=== PATIENT | female | born 1935 | race Caucasian/White ===

== ENCOUNTER → 2017-03-06 | Outpatient (CLI) | payer MEDICARE, BC ==
--- NOTE | 2017-03-07 09:09 | MM ---
Reason for exam: screening (asymptomatic). Last mammogram was performed 1 year and 1 month ago. History: Patient is postmenopausal. Benign stereotactic core biopsy of the right breast, April 10, 2003. Excisional biopsy of the left breast, 1979. Cyst aspiration of the right breast. Excisional biopsy of the right breast. Took estrogen for 2 years. Physical Findings: A clinical breast exam by your physician is recommended on an annual basis and results should be correlated with mammographic findings. MG 3D Screening Mammo W/Cad Bilateral CC and MLO view(s) were taken. Prior study comparison: February 04, 2016, bilateral MG 3d screening mammo w/cad. November 23, 2014, bilateral MG screening mammo w CAD. The breast tissue is heterogeneously dense. This may lower the sensitivity of mammography. Finding: There are typically benign round, linear calcifications. There is a chronic nodularity bilaterally. No significant changes in finding since February 04, 2016 and November 23, 2014. ASSESSMENT: Benign, BI-RAD 2 RECOMMENDATION: Routine screening mammogram of both breasts in 1 year.
== END ==
LOC: RADMAMWWP 09:13
PROVIDERS: ATTEND Family Medicine
DX: Z12.31 Encounter for screening mammogram for malignant neoplasm of breast (principal)
CPT/HCPCS: 77063; 77067

== ENCOUNTER 2017-06-12 13:41 | Inpatient (IN) | payer MEDICARE, BC ==
[2017-06-12] MEDS ORDERED: RX INFO: IV CONTRAST WAS GIVEN 1 EACH MISC MISCELLANE PRN (14:03)
--- NOTE | 2017-06-12 14:04 | ED ---
General Adult HPI - General Chief complaint: Neuro Symptoms/Deficit Stated complaint: confusion, trouble speaking Time Seen by Provider: 06/12/17 13:52 Source: patient, RN notes reviewed, old records reviewed Mode of arrival: wheelchair Limitations: no limitations - History of Present Illness Initial comments: 81-year-old female presenting for evaluation of slurred speech and confusion. Patient states approximately 2 hours prior to arrival she had an episode where she could not find words, she was confused. This happened while having a conversation with her daughter on the phone. Symptoms completely resolved prior to arrival. Denies any focal weakness or numbness, denies speech difficulty at the time my evaluation. She states she did have a headache with this episode and this is also resolved. Denies chest pain or shortness of breath. Denies vision changes. Denies numbness or tingling. Denies nausea vomiting or diarrhea. Patient has no complaints the time my evaluation. - Related Data Home Medications Medication Instructions Recorded Confirmed Atorvastatin [Lipitor] 40 mg PO HS 07/31/14 06/12/17 Levothyroxine Sodium [Synthroid] 50 mcg PO DAILY 07/31/14 06/12/17 Warfarin [Coumadin] 2.5 mg PO HS 07/31/14 06/12/17 Nitroglycerin Sl Tabs [Nitrostat] 0.4 mg SUBLINGUAL Q5M PRN 08/09/15 06/12/17 Atenolol [Tenormin] 50 mg PO HS 01/10/16 06/12/17 Pantoprazole Sodium [Protonix] 40 mg PO DAILY 06/12/17 06/12/17 Allergies Allergy/AdvReac Type Severity Reaction Status Date / Time No Known Allergies Allergy Verified 06/12/17 14:13 Review of Systems ROS Statement: Those systems with pertinent positive or pertinent negative responses have been documented in the HPI. ROS Other: All systems not noted in ROS Statement are negative. 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 History of Any Multi-Drug Resistant Organisms: None Reported Past Surgical History: Adenoidectomy, Breast Surgery, Cholecystectomy, Coronary Bypass/CABG, Heart Catheterization With Stent, Hernia Repair, Tonsillectomy Additional Past Surgical History / Comment(s): Cardiac caths with stent to proximal LAD in 2003 and stent to mid LAD 2010, 03/09/12 CABG-3 vessel, umbilical hernia repair, bilateral breast bx-R breast had chrystall removed, L caratid endartectomy, UVPPP, colonoscopy, hemorrhoidectomy, bilateral cataract removal with lens implants. Past Anesthesia/Blood Transfusion Reactions: No Reported Reaction Date of Last Stent Placement:: 2010 Past Psychological History: Anxiety, Depression Smoking Status: Never smoker Past Alcohol Use History: None Reported Past Drug Use History: None Reported - Past Family History Father Family Medical History: Congestive Heart Failure (CHF), Coronary Artery Disease (CAD) Additional Family Medical History / Comment(s): Father at the age of 57yrs of CHF Mother Family Medical History: Cancer Additional Family Medical History / Comment(s): Mother had colon cancer. She lived to be 89 1/2yrs old. Brother(s) History Unknown: Yes Sister(s) Family Medical History: Cancer Daughter(s) History Unknown: Yes General Exam Limitations: no limitations General appearance: alert, in no apparent distress Head exam: Present: atraumatic, normocephalic Eye exam: Present: normal appearance, PERRL, EOMI ENT exam: Present: normal exam Neck exam: Present: normal inspection. Absent: tenderness, meningismus Respiratory exam: Present: normal lung sounds bilaterally. Absent: respiratory distress, wheezes Cardiovascular Exam: Present: regular rate, normal rhythm GI/Abdominal exam: Present: soft. Absent: distended, tenderness Extremities exam: Present: normal inspection, normal capillary refill. Absent: pedal edema Neurological exam: Present: alert, oriented X3, CN II-XII intact. Absent: motor sensory deficit (NIH: 0) Psychiatric exam: Present: normal affect, normal mood Skin exam: Present: warm, dry, intact. Absent: cyanosis, diaphoretic Course Vital Signs 06/12/17 06/12/17 06/12/17 13:54 14:31 15:33 Temperature 98.1 F Pulse Rate 79 89 72 Respiratory 16 18 18 Rate Blood Pressure 225/99 189/86 226/99 O2 Sat by Pulse 95 99 99 Oximetry 06/12/17 15:55 Temperature Pulse Rate 62 Respiratory 18 Rate Blood Pressure 173/80 O2 Sat by Pulse 97 Oximetry EKG Findings - EKG Comments: EKG Findings:: EKG: Sinus rhythm with first-degree AV block, LVH, rate of 77, SD interval 216, QRS duration 82, QTC 448, there is T-wave inversion in lead V2 , poor baseline secondary artifact in V5 and V6. No ST segment elevation Medical Decision Making - Medical Decision Making 81-year-old female presenting with aphasia. Symptoms resolved prior to arrival. Blood pressure significantly elevated at the time of presentation. Head CT shows no intracranial hemorrhage, no mass effect. CT angiography is obtained is negative for significant stenosis or emboli. Laboratory studies include CBC and CMP are unremarkable. She's blood pressure history in the emergency department with 10 of hydralazine, goal is a blood pressure 170-190 systolic. Case discussed with Dr. Bailey who will accept the admission for TIA evaluation. Neurology placed on consult. - Lab Data Result diagrams: 06/12/17 14:00 06/12/17 14:00 Lab Results 06/12/17 06/12/17 06/12/17 Range/Units 14:00 14:00 14:00 WBC 8.1 (3.8-10.6) k/uL RBC 4.30 (3.80-5.40) m/uL Hgb 12.5 (11.4-16.0) gm/dL Hct 39.3 (34.0-46.0) % MCV 91.5 (80.0-100.0) fL MCH 29.2 (25.0-35.0) pg MCHC 31.9 (31.0-37.0) g/dL RDW 15.3 (11.5-15.5) % Plt Count 279 (150-450) k/uL Neutrophils % 43 % Lymphocytes % 45 % Monocytes % 6 % Eosinophils % 4 % Basophils % 0 % Neutrophils # 3.5 (1.3-7.7) k/uL Lymphocytes # 3.7 (1.0-4.8) k/uL Monocytes # 0.5 (0-1.0) k/uL Eosinophils # 0.3 (0-0.7) k/uL Basophils # 0.0 (0-0.2) k/uL PT (9.0-12.0) sec INR (<1.2) APTT (22.0-30.0) sec Sodium 141 (137-145) mmol/L Potassium 4.1 (3.5-5.1) mmol/L Chloride 104 (98-107) mmol/L Carbon Dioxide 22 (22-30) mmol/L Anion Gap 15 mmol/L BUN 17 (7-17) mg/dL Creatinine 1.07 H (0.52-1.04) mg/dL Est GFR (CKD-EPI)AfAm 56 (>60 ml/min/1.73 sqM) Est GFR (CKD-EPI)NonAf 48 (>60 ml/min/1.73 sqM) Glucose 102 H (74-99) mg/dL Calcium 9.0 (8.4-10.2) mg/dL Total Bilirubin 1.7 H (0.2-1.3) mg/dL AST 50 H (14-36) U/L ALT 43 (9-52) U/L Alkaline Phosphatase 74 (38-126) U/L Total Creatine Kinase 72 (30-135) U/L CK-MB (CK-2) 0.5 (0.0-2.4) ng/mL CK-MB (CK-2) Rel Index 0.7 Troponin I <0.012 (0.000-0.034) ng/mL Total Protein 7.7 (6.3-8.2) g/dL Albumin 4.1 (3.5-5.0) g/dL 06/12/17 Range/Units 14:00 WBC (3.8-10.6) k/uL RBC (3.80-5.40) m/uL Hgb (11.4-16.0) gm/dL Hct (34.0-46.0) % MCV (80.0-100.0) fL MCH (25.0-35.0) pg MCHC (31.0-37.0) g/dL RDW (11.5-15.5) % Plt Count (150-450) k/uL Neutrophils % % Lymphocytes % % Monocytes % % Eosinophils % % Basophils % % Neutrophils # (1.3-7.7) k/uL Lymphocytes # (1.0-4.8) k/uL Monocytes # (0-1.0) k/uL Eosinophils # (0-0.7) k/uL Basophils # (0-0.2) k/uL PT 16.8 H (9.0-12.0) sec INR 1.8 H (<1.2) APTT 26.7 (22.0-30.0) sec Sodium (137-145) mmol/L Potassium (3.5-5.1) mmol/L Chloride (98-107) mmol/L Carbon Dioxide (22-30) mmol/L Anion Gap mmol/L BUN (7-17) mg/dL Creatinine (0.52-1.04) mg/dL Est GFR (CKD-EPI)AfAm (>60 ml/min/1.73 sqM) Est GFR (CKD-EPI)NonAf (>60 ml/min/1.73 sqM) Glucose (74-99) mg/dL Calcium (8.4-10.2) mg/dL Total Bilirubin (0.2-1.3) mg/dL AST (14-36) U/L ALT (9-52) U/L Alkaline Phosphatase (38-126) U/L Total Creatine Kinase (30-135) U/L CK-MB (CK-2) (0.0-2.4) ng/mL CK-MB (CK-2) Rel Index Troponin I (0.000-0.034) ng/mL Total Protein (6.3-8.2) g/dL Albumin (3.5-5.0) g/dL Critical Care Time Critical Care Time: Yes Total Critical Care Time: 35 Disposition Clinical Impression: Transient cerebral ischemia Disposition: ADMITTED IP TO THIS [facility] Condition: Stable Is patient prescribed a controlled substance at discharge?: No Referrals: Jad Paulino DO [Primary Care Provider] - 1-2 days Decision to Admit Reason: Admit from EC Decision Date: 06/12/17 Decision Time: 17:06
[2017-06-12 14:24] LABS: Basophils % (A) 0 %; Eosinophils # (A) 0.3 k/uL (0-0.7); Eosinophils % (A) 4 %; HCT 39.3 % (34.0-46.0); HGB 12.5 gm/dL (11.4-16.0); Lymphocytes # (A) 3.7 k/uL (1.0-4.8); Lymphocytes % (A) 45 %; MCH 29.2 pg (25.0-35.0); MCHC 31.9 g/dL (31.0-37.0); MCV 91.5 fL (80.0-100.0); Mean Platelet Volume 7.5; Monocytes # (A) 0.5 k/uL (0-1.0); Monocytes % (A) 6 %; Neutrophils # (A) 3.5 k/uL (1.3-7.7); Neutrophils % (A) 43 %; Platelet Count 279 k/uL (150-450); RDW 15.3 % (11.5-15.5); WBC 8.1 k/uL (3.8-10.6)
[2017-06-12 14:34] LABS: INR 1.8 (<1.2); Partial Thromboplastin Time 26.7 sec (22.0-30.0); Prothrombin Time 16.8 sec (9.0-12.0)
[2017-06-12 14:36] LABS: Albumin 4.1 g/dL (3.5-5.0); Potassium 4.1 mmol/L (3.5-5.1); Total Bilirubin 1.7 mg/dL (0.2-1.3); Total Protein 7.7 g/dL (6.3-8.2)
--- NOTE | 2017-06-12 14:38 | XR ---
EXAMINATION TYPE: XR chest 2V DATE OF EXAM: 06/12/2017 COMPARISON: Chest x-ray January 10, 2016. HISTORY: Chest pain per order. TECHNIQUE: Frontal and lateral views of the chest are obtained. FINDINGS: Post CABG changes with mediastinal clips and sternal wires is redemonstrated. There is ch ronic emphysematous change with new patchy left basilar opacity felt to reflect atelectasis and/or in filtrate seen best on frontal view. Right lung is clear. No large pleural effusion or pneumothorax is identified bilaterally. The cardiac silhouette size is stable and upper limits of normal with athero sclerotic thoracic aorta. The osseous structures are demineralized. IMPRESSION: Chronic changes with new patchy left basilar atelectasis and/or infiltrate.
[2017-06-12 14:44] LABS: Creatine Kinase 72 U/L (30-135)
[2017-06-12 14:58] LABS: Creatine Kinase MB 0.5 ng/mL (0.0-2.4); Troponin I <0.012 ng/mL (0.000-0.034)
[2017-06-12] MEDS ORDERED: hydrALAZINE HCL 20 MG/ML 1 ML VIAL IVP STA (15:33)
--- NOTE | 2017-06-12 15:44 | CT ---
EXAMINATION TYPE: CT brain wo con DATE OF EXAM: 06/12/2017 COMPARISON: NONE HISTORY: Confusion and dizziness. CT DLP: 1104 mGycm Automated exposure control for dose reduction was used. TECHNIQUE: CT scan of the head is performed without contrast. FINDINGS: There is no acute intracranial hemorrhage or midline shift identified. There is diffuse v entricular and sulcal prominence consistent with diffuse age-related cerebral atrophy. There is low- attenuation in the periventricular white matter consistent with chronic small vessel ischemic change. There is mild mucosal thickening within the ethmoid sinuses and scant mucosal thickening within the sphenoid and frontal sinuses. Visualized maxillary sinuses are well aerated. Incidentally noted left- sided geraldine bullosa is seen. Mastoid air cells are also well aerated. Atherosclerosis is seen of the intracranial vasculature. Left globe banding and right scleral calcifications are incidentally noted . Dystrophic basal ganglia calcifications are also incidentally seen. IMPRESSION: 1. No acute intracranial process. 2. Diffuse age-related cerebral atrophy and chronic small vessel ischemic change noted, most commonly on the basis of chronic microangiopathy. 3. Mild sinusitis.
--- NOTE | 2017-06-12 15:51 | CT ---
EXAMINATION TYPE: CT angio head neck DATE OF EXAM: 06/12/2017 HISTORY: Confusion and dizziness COMPARISON: CT brain same date CT DLP: 271.6 mGycm. Automated Exposure Control for Dose Reduction was Utilized. TECHNIQUE: CTA scan of the neck is performed with IV Contrast, patient injected with 65 mL of Isovue 370, axial images are obtained, coronal and sagittal reformatted images are reviewed. Three-D recons tructed images are created on an independent workstation and reviewed. FINDINGS: Carotid/Vascular Structures: Thoracic aorta shows 3 super aortic branch vessels, atheromatous changes are present, the innominate, left and right common carotid, left and right subclavian arteries are p atent. Left and right vertebral arteries are patent, left vertebral artery is dominant. No filling de fect evident to suggest embolus or dissection. No significant stenosis of the proximal internal carot id arteries bilaterally, internal and external carotid arteries are patent. Anterior and posterior ci rculation is patent, no evident embolus within the [place], no evident aneurysm. Other: No evident adenopathy. Lung apices are normal. IMPRESSION: Atheromatous changes, no evident embolism, dissection or aneurysm.
[2017-06-12] MEDS ORDERED: ASPIRIN 325 MG TAB PO STA (16:58)
[2017-06-12] MEDS ORDERED: hydrALAZINE HCL 20 MG/ML 1 ML VIAL IVP PRN (17:01)
[2017-06-12 20:20] LABS: Creatine Kinase 71 U/L (30-135)
[2017-06-12 20:29] LABS: Creatine Kinase MB 0.5 ng/mL (0.0-2.4)
[2017-06-12 20:34] LABS: Troponin I <0.012 ng/mL (0.000-0.034)
[2017-06-12] MEDS: SODIUM CHLORIDE 0.9% 1,000 ML IV SCH (21:45)
[2017-06-13] MEDS ORDERED: ALPRAZolam 0.25 MG TAB PO PRN (01:00)
[2017-06-13] MEDS ORDERED: ALPRAZolam 0.25 MG TAB ONE ×2 (01:27→01:50)
[2017-06-13] MEDS ORDERED: hydrALAZINE HCL 20 MG/ML 1 ML VIAL ONE (01:50)
[2017-06-13 07:07] LABS: Cholesterol 176 mg/dL (<200); HDL Cholesterol 43 mg/dL (40-60); LDL Cholesterol,Calculated 101 mg/dL (0-99); Triglycerides 158 mg/dL (<150)
[2017-06-13 07:22] LABS: Basophils % (A) 0 %; Eosinophils # (A) 0.1 k/uL (0-0.7); Eosinophils % (A) 1 %; HCT 41.7 % (34.0-46.0); HGB 13.2 gm/dL (11.4-16.0); Hypochromasia Slight; Lymphocytes # (A) 1.8 k/uL (1.0-4.8); Lymphocytes % (A) 22 %; MCHC 31.6 g/dL (31.0-37.0); MCV 91.9 fL (80.0-100.0); Mean Platelet Volume 7.4; Monocytes # (A) 0.3 k/uL (0-1.0); Monocytes % (A) 3 %; Neutrophils # (A) 5.8 k/uL (1.3-7.7); Neutrophils % (A) 73 %; Platelet Count 294 k/uL (150-450); RBC 4.54 m/uL (3.80-5.40); RDW 15.3 % (11.5-15.5); WBC 7.9 k/uL (3.8-10.6)
[2017-06-13] MEDS: ONDANSETRON 4 MG/2 ML VIAL IVP PRN ×2 (07:32→13:59)
[2017-06-13 08:00] LABS: Magnesium 1.6 mg/dL (1.6-2.3)
[2017-06-13 08:17] LABS: T4, Free (Free Thyroxine) 1.07 ng/dL (0.78-2.19)
--- NOTE | 2017-06-13 08:34 | P.CRDCN ---
History of Present Illness Consult date: 06/13/17 Requesting physician: Mia Bailey Reason for Consult (text): tia Chief complaint: Expressive aphasia, headache, blurring of vision History of present illness: This is a pleasant 81-year-old female who follows regularly with Dr. John in the office. She has a known history of coronary artery disease with prior bypass surgery, patient also underwent stenting prior to her bypass surgery, most recent echo performed in March revealed a normal ejection fraction. hypertension, hyperlipidemia, sleep apnea, prior PE with DVT, on Coumadin for anticoagulation, GERD, hypothyroidism,. She presents to the hospital this occasion with symptoms of expressive aphasia, she also states she had a headache and some mild blurring of vision. At the time of my examination this morning, patient still complains of mild headache, her expressive aphasia has completely resolved as have her visual disturbance. CAT scan of the brain was performed which did not reveal any acute intracranial process. Diffuse age- related cerebral atrophy and chronic small vessel ischemic change is noted. CT angiography was performed which revealed atheromatous changes with no evident embolism dissection or aneurysm. Chest x-ray shows chronic changes with new left patchy basilar atelectasis and/or infiltrate. EKG on admission here showed a normal sinus rhythm with a first-degree AV block and T wave changes noted in the anterior leads. Auditory data was reviewed, CBC is normal. Sodium 141, potassium 4.1, chloride 104, CO2 22. BUN 17, creatinine 1.07. Troponins are negative 3, magnesium level I.6, total bilirubin 1.7, AST 50, ALT 43. Cholesterol 176, triglycerides 158, LDL 101, HDL 43. Free T4 is normal 1.07. I pressure on arrival here to 25/99, heart rate in the 70s, 95% on room air, temperature 98.1. Let pressure this morning 176/78 with heart rate in the 90s. 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 History of Any Multi-Drug Resistant Organisms: None Reported Past Surgical History: Adenoidectomy, Breast Surgery, Cholecystectomy, Coronary Bypass/CABG, Heart Catheterization With Stent, Hernia Repair, Tonsillectomy Additional Past Surgical History / Comment(s): Cardiac caths with stent to proximal LAD in 2003 and stent to mid LAD 2010, 03/09/12 CABG-3 vessel, umbilical hernia repair, bilateral breast bx-R breast had crystall removed, L caratid endartectomy, UVPPP, colonoscopy, hemorrhoidectomy, bilateral cataract removal with lens implants.lt eye detatched retina(sx) Past Anesthesia/Blood Transfusion Reactions: No Reported Reaction Additional Past Anesthesia/Blood Transfusion Reaction / Comment(s): never recieved any blood in past. Date of Last Stent Placement:: 2010 Smoking Status: Never smoker - Past Family History Father Family Medical History: Congestive Heart Failure (CHF), Coronary Artery Disease (CAD) Additional Family Medical History / Comment(s): Father at the age of 57yrs of CHF Mother Family Medical History: Cancer Additional Family Medical History / Comment(s): Mother had colon cancer. She lived to be 89 1/2yrs old. Brother(s) History Unknown: Yes Sister(s) Family Medical History: Cancer Daughter(s) History Unknown: Yes Medications and Allergies Home Medications Medication Instructions Recorded Confirmed Type Atorvastatin [Lipitor] 40 mg PO HS 07/31/14 06/12/17 History Levothyroxine Sodium [Synthroid] 50 mcg PO DAILY 07/31/14 06/12/17 History Warfarin [Coumadin] 2.5 mg PO HS 07/31/14 06/12/17 History Nitroglycerin Sl Tabs [Nitrostat] 0.4 mg SUBLINGUAL Q5M PRN 08/09/15 06/12/17 History Atenolol [Tenormin] 50 mg PO HS 01/10/16 06/12/17 History Pantoprazole Sodium [Protonix] 40 mg PO DAILY 06/12/17 06/12/17 History Allergies Allergy/AdvReac Type Severity Reaction Status Date / Time No Known Allergies Allergy Verified 06/12/17 14:13 Physical Exam Vitals: Vital Signs Temp Pulse Pulse Resp BP BP Pulse Ox 06/13/17 08:00 97.6 F 92 17 176/78 93 L 06/13/17 04:00 79 18 163/68 06/13/17 00:00 97.1 F L 79 18 193/82 96 06/12/17 21:12 97.1 F L 78 16 163/71 98 06/12/17 18:45 97.2 F L 79 18 156/76 96 06/12/17 18:16 97.4 F L 76 18 175/75 97 06/12/17 17:28 97.6 F 71 18 189/84 06/12/17 15:55 62 18 173/80 97 06/12/17 15:33 72 18 226/99 99 06/12/17 14:31 89 18 189/86 99 06/12/17 13:54 98.1 F 79 16 225/99 95 Intake and Output 06/12/17 06/13/17 06/13/17 22:59 06:59 14:59 Output Total 200 400 Balance -200 -400 Output: Urine 200 400 Other: # Voids 1 2 # Bowel Movements 0 Weight 76.6 kg PHYSICAL EXAMINATION: HEENT: Head is atraumatic, normocephalic. Pupils equal, round. Neck is supple. There is no elevated jugular venous pressure. HEART EXAMINATION: Heart S1 and S2 systolic murmur is heard. CHEST EXAMINATION: Lungs are clear to auscultation and precussion. No chest wall tenderness is noted on palpation or with deep breathing. ABDOMEN: Soft, nontender. Bowel sounds are heard. No organomegaly noted. EXTREMITIES: 2+ peripheral pulses with no evidence of peripheral edema and no calf tenderness noted. NEUROLOGIC patient is awake, alert and oriented -3. No expressive aphasia. Mild right-sided facial droop . Results 06/13/17 06:18 06/12/17 14:00 Cardiac Enzymes 06/12/17 06/12/17 06/12/17 Range/Units 14:00 14:00 19:45 AST 50 H (14-36) U/L CK-MB (CK-2) 0.5 0.5 (0.0-2.4) ng/mL Troponin I <0.012 <0.012 (0.000-0.034) ng/mL 06/13/17 Range/Units 06:15 AST (14-36) U/L CK-MB (CK-2) (0.0-2.4) ng/mL Troponin I <0.012 (0.000-0.034) ng/mL Coagulation 06/12/17 Range/Units 14:00 PT 16.8 H (9.0-12.0) sec APTT 26.7 (22.0-30.0) sec Lipids 06/13/17 Range/Units 06:15 Triglycerides 158 H (<150) mg/dL Cholesterol 176 (<200) mg/dL HDL Cholesterol 43 (40-60) mg/dL CBC 06/12/17 06/13/17 Range/Units 14:00 06:18 WBC 8.1 7.9 (3.8-10.6) k/uL RBC 4.30 4.54 (3.80-5.40) m/uL Hgb 12.5 13.2 (11.4-16.0) gm/dL Hct 39.3 41.7 (34.0-46.0) % Plt Count 279 294 (150-450) k/uL Comprehensive Metabolic Panel 06/12/17 Range/Units 14:00 Sodium 141 (137-145) mmol/L Potassium 4.1 (3.5-5.1) mmol/L Chloride 104 (98-107) mmol/L Carbon Dioxide 22 (22-30) mmol/L BUN 17 (7-17) mg/dL Creatinine 1.07 H (0.52-1.04) mg/dL Glucose 102 H (74-99) mg/dL Calcium 9.0 (8.4-10.2) mg/dL AST 50 H (14-36) U/L ALT 43 (9-52) U/L Alkaline Phosphatase 74 (38-126) U/L Total Protein 7.7 (6.3-8.2) g/dL Albumin 4.1 (3.5-5.0) g/dL Current Medications Generic Name Dose Route Start Last Admin Trade Name Freq PRN Reason Stop Dose Admin Alprazolam 0.25 mg 06/13/17 01:00 Xanax PO HS PRN Insomnia Aspirin 325 mg 06/13/17 12:00 Aspirin PO DAILY DEVANTE Hydralazine HCl 10 mg 06/12/17 17:01 06/13/17 01:00 Apresoline IVP 10 mg Q6HR PRN Administration Blood Pressure - High Protocol Sodium Chloride 1,000 mls @ 20 mls/hr 06/12/17 17:00 06/12/17 21:45 Saline 0.9% IV Not Given .Q24H DEVANTE Miscellaneous Information 1 each 06/12/17 14:03 06/12/17 14:54 Rx Info: Iv Contrast Was Given MISCELLANE 06/14/17 14:03 1 each DAILY PRN Administration Per Protocol Ondansetron HCl 4 mg 06/13/17 07:13 06/13/17 07:32 Zofran IVP 4 mg Q6HR PRN Administration Nausea And Vomiting Warfarin Sodium 2.5 mg 06/13/17 18:00 Coumadin PO 1800 DEVANTE Intake and Output 06/12/17 06/13/17 06/13/17 22:59 06:59 14:59 Output Total 200 400 Balance -200 -400 Output: Urine 200 400 Other: # Voids 1 2 # Bowel Movements 0 Weight 76.6 kg 06/13/17 06:18 06/12/17 14:00 EKG Interpretations (text) EKG shows normal sinus rhythm with first-degree AV block and T-wave inversion noted in the anterior leads. Assessment and Plan Plan: Assessment and plan #1 symptoms of expressive aphasia with associated headache and mild blurring of vision, suggestive of TIA. Initial CAT scan did not reveal any acute intracranial process. #2 accelerated hypertension #3 history of hypertension #4 coronary artery disease with prior bypass surgery in 2012 at which time patient underwent a PLATT to the LAD, saphenous vein graft to the OM1 and the OM 2. Patient also had stenting of the proximal LAD in 2003. #5 hyperlipidemia #6 prior PE and DVT for which the patient is on Coumadin #7 hypothyroidism #8 hypomagnesemia Plan Patient had a recent echocardiogram with Doppler study performed in the office in March of this year we will obtain a copy of that. INR subtherapeutic on admission at 1.8, we will continue Coumadin to maintain an INR in the range of 2 -2.5. There was suspicion of possible ventricular tachycardia on a rhythm strip earlier this morning, patient was vomiting at the time, appears to be artifact. Replace magnesium. We will resume the patient's atenolol, Lipitor, decrease aspirin to 81 mg daily continue Coumadin. We will continue to monitor for any arrhythmias in the form of atrial fibrillation. Further recommendations to follow. DNP note has been reviewed, I agree with a documented findings and plan of care. Patient was seen and examined.
[2017-06-13] MEDS ORDERED: ACETAMINOPHEN TAB 325 MG TAB PO PRN (09:02)
--- NOTE | 2017-06-13 09:06 | P.PN ---
Progress Note - Text This is an addendum to the dictated cardiology consultation. The patient has a known history of prior DVT and PE, of chronic anticoagulation, history of CAD status post CABG with yesterday had an episode of aphasia, expressive and dysarthria. She is also complaining of a headache and nausea. Her speech has returned to baseline this morning and she is only complaining of the headache. She has no prior documented history of atrial fibrillation, TIA or CVA. She had an echocardiogram performed in July that showed a preserved systolic function. At the time of her bypass she received a PLATT to the LAD and saphenous vein graft to the OM1 and OM 2. She has a history of hypertension and hyperlipidemia and her blood pressure in March was under good control but it is quite elevated on presentation. She is usually active physically without significant limitations. Her physical examination showed clear lungs, she is in sinus mechanism and there is no evidence of calf tenderness or swelling. Her EKG shows sinus mechanism with no evidence of ST segment changes. The patient presents with a TIA of unclear etiology. She is in sinus mechanism and has no prior history of atrial fibrillation. She is anticoagulated for history of DVT and PE in the past but her INR was subtherapeutic on presentation although it was 3.8 last week. She has no evidence to suggest recurrent DVT on clinical examination. I will obtain an echocardiogram with contrast to see if there is any signs of shunting and if so a ONEL would be needed. I would add an LEA inhibitor to her regimen to optimize her blood pressure control. Depending on her progress further recommendations will be made. Thank you for this consult we will follow with you.
[2017-06-13] MEDS: LISINOPRIL 5 MG TAB PO SCH (09:56)
[2017-06-13] MEDS: ASPIRIN 81 MG PO SCH (09:56)
--- NOTE | 2017-06-13 10:02 | ECHOF ---
Referral Reason:Thrombus MEASUREMENTS -------- HEIGHT: 162.6 cm WEIGHT: 76.2 kg BP: 163/68 RVIDd: 2.8 cm (< 3.3) IVSd: 1.3 cm (0.6 - 1.1) LVIDd: 3.6 cm (3.9 - 5.3) LVPWd: 1.2 cm (0.6 - 1.1) IVSs: 1.4 cm LVIDs: 2.6 cm LVPWs: 1.4 cm LA Diam: 2.9 cm (2.7 - 3.8) LAESV Index (A-L): 23.06 ml/m Ao Diam: 2.8 cm (2.0 - 3.7) AV Cusp: 1.5 cm (1.5 - 2.6) MV EXCURSION: 14.273 mm (> 18.000) MV EF SLOPE: 157 mm/s (70 - 150) EPSS: 0.4 cm MV E Ranulfo: 0.86 m/s MV DecT: 165 ms MV A Ranulfo: 1.26 m/s MV E/A Ratio: 0.68 RAP: 5.00 mmHg RVSP: 19.26 mmHg FINDINGS -------- Sinus rhythm. This was a technically good study. The left ventricular size is normal. There is mild concentric left ventricular hypertrophy. Overa ll left ventricular systolic function is normal with, an EF between 55 - 60 %. The right ventricle is normal in size. Normal LA size by volume 22+/-6 ml/m2. The right atrium is normal in size. Contrast study was performed with 2 iv injections of 8 ccs of agitated normal saline, at rest, and po st-Valsalva. Interatrial and interventricular septum intact. There is mild aortic valve sclerosis. The mitral valve leaflets are mildly thickened. Mild mitral annular calcification present. The tricuspid valve appears structurally normal. Trace/mild (physiologic) pulmonic regurgitation. The aortic root size is normal. Normal inferior vena cava with normal inspiratory collapse consistent with estimated right atrial pre ssure of 5 mmHg. There is no pericardial effusion. CONCLUSIONS -------- 1. Sinus rhythm. 2. This was a technically good study. 3. The left ventricular size is normal. 4. There is mild concentric left ventricular hypertrophy. 5. Overall left ventricular systolic function is normal with, an EF between 55 - 60 %. 6. The right ventricle is normal in size. 7. Normal LA size by volume 22+/-6 ml/m2. 8. The right atrium is normal in size. 9. Contrast study was performed with 2 iv injections of 8 ccs of agitated normal saline, at rest, and post-Valsalva. 10. Interatrial and interventricular septum intact. 11. There is mild aortic valve sclerosis. 12. The mitral valve leaflets are mildly thickened. 13. Mild mitral annular calcification present. 14. The tricuspid valve appears structurally normal. 15. Trace/mild (physiologic) pulmonic regurgitation. 16. The aortic root size is normal. 17. Normal inferior vena cava with normal inspiratory collapse consistent with estimated right atrial pressure of 5 mmHg. 18. There is no pericardial effusion. 19. Consider ONEL if clinically indicated ALCOHOLISM WORKER: Melanie Beaver RDCS
[2017-06-13] MEDS ORDERED: MORPHINE SULFATE 4MG/4ML SYRG IVP PRN (10:51)
[2017-06-13] MEDS ORDERED: DIAZEPAM 5 MG TAB PO STA (10:52)
[2017-06-13] MEDS ORDERED: ASPIRIN 325 MG TAB PO SCH (12:00)
--- NOTE | 2017-06-13 16:42 | MR ---
EXAMINATION TYPE: MR brain wo/w con DATE OF EXAM: 06/13/2017 COMPARISON: 06/12/2017 CT [employer] head and neck and CT brain HISTORY: Neuro deficits TECHNIQUE: Multiplanar, multisequence images of the brain and brainstem is performed without and with IV contras t, utilizing 7.5 ml mL intravenous Gadavist . FINDINGS: Diffusion weighted images demonstrate no evidence of a recent infarct or other diffusion ab normality. There is no extra-axial fluid collection. Scattered patchy areas of T2 hyperintensity and FLAIR hyperintensity are seen within the periventricular and subcortical white matter, overall mild burden given the patient's age. These are most likely on the basis of chronic microangiopathy. Croft-w larisa interface is maintained. The ventricular system and cisternal spaces are symmetrically prominent compatible with age-related volume loss. The brain volume is age appropriate. Midline structures demonstrate normal morphology. The craniocervical junction appears within normal limits. Post contrast images demonstrate no abnormal enhancement. The dural venous sinuses appear pa tent. The globes are intact. There is mild mucosal thickening within the ethmoid sinuses and left fro ntal sinus. Remainder the visualized paranasal sinuses and mastoid air cells are well aerated. Major intracranial flow voids are maintained. IMPRESSION: 1. No MR evidence of acute infarct, midline shift or mass effect. 2. No abnormal intracranial enhancement. No enhancing intracranial masses seen. 3. Mild burden nonspecific white matter change, likely on the basis of chronic microangiopathy. 4. Mild left frontal and ethmoid paranasal sinus disease. 5. Minimal age-related volume loss.
[2017-06-13] MEDS: SODIUM CHLORIDE 0.9% 1,000 ML IV SCH (17:24)
[2017-06-13] MEDS ORDERED: WARFARIN 2.5 MG TAB PO SCH (18:00)
[2017-06-13 18:12] VITALS: RESP 16
[2017-06-13] MEDS ORDERED: MAG HYDROX/AL HYDROX/SIMETH 30 ML CUP PO PRN (19:44)
--- NOTE | 2017-06-13 19:44 | P.HPIM ---
History of Present Illness H&P Date: 06/13/17 Chief Complaint: Dysarthria and aphasia This Is an 81-year-old pleasant lady patient of Jefferson Cook/Thelma Nicholson, Dr. Guido. She also sees Dr. Burch from cardiologyS/Thelma Nicholson from pulmonary medicine. She has an underlying history of CAD prior CABG 3 vessel disease in February 2011 cardiac stents, with last cardiac stent in 2010. chronic atrial fibrillation GERD hypertension hyperlipidemia previous PE and obstructive sleep apnea cardiac history is relevant for cardiac cath with stent to the proximal LAD 2003, stent to the mid LAD 2010, CABG G and 2012 3 vessel GI bleeding in January 2016, currently maintained on Coumadin secondary to pulmonary emboli 2009 for which he is on chronic anticoagulation monitored by Dr. Cook/Thelma Nicholson She was admitted to emergency room Secondary to dysarthria. Patient was at her normal state of health, and around wound, patient was over the phone and talked to her daughter when she has difficulty in word finding, and articulation. This lasted for approximately 15 minutes, there is no other neurologic deficits accompanying this including lightheadedness or dizziness, vision has had headaches, and no motor weakness in the upper and lower extremities. She was subsequently seen in emergency room with no recurrence of her symptoms. Patient has nausea and vomiting, no abdominal pain along with the above complaints. Patient doesn't have any dysuria hematuria or melena hematochezia In the emergency room Review of Systems Constitutional: Reports as per HPI, Denies anorexia, Denies chills, Denies chronic headaches, Denies chronic pain, Denies daytime sleepiness, Denies fatigue, Denies fever, Denies lethargy, Denies malaise, Denies night sweats, Denies poor appetite, Denies sweats, Denies weakness, Denies weight gain, Denies weight loss Ears, nose, mouth and throat: Reports as per HPI, Denies ant. neck pain, Denies bleeding gums, Denies dental pain, Denies dysphagia, Denies epistaxis, Denies headache, Denies hoarseness, Denies mouth pain, Denies nasal congestion, Denies nasal discharge, Denies neck fullness/pressure, Denies neck lump, Denies nose pain, Denies odynophagia, Denies post-nasal drip, Denies sinus pain, Denies sinus pressure, Denies swelling in mouth, Denies swelling in throat, Denies sore throat, Denies vertigo, Denies voice changes Cardiovascular: Reports as per HPI, Denies chest pain, Denies claudication, Denies decreased exercise tolerance, Denies dyspnea on exertion, Denies edema, Denies high blood pressure, Denies irregular heart beat, Denies leg edema, Denies lightheadedness, Denies orthopnea, Denies palpitations, Denies paroxysmal nocturnal dyspnea, Denies phlebitis, Denies rapid heart beat, Denies shortness of breath, Denies syncope Respiratory: Reports as per HPI, Denies congestion, Denies cough, Denies cough with sputum, Denies dyspnea, Denies excessive sputum, Denies hemoptysis, Denies home oxygen, Denies pain, Denies pain on inspiration, Denies pleurisy, Denies respiratory infections, Denies sleep apnea, Denies snoring, Denies wheezing Gastrointestinal: Reports as per HPI, Denies abdominal pain, Denies belching, Denies bloating, Denies BRBPR, Denies change in bowel habits, Denies coffee ground emesis, Denies constipation, Denies diarrhea, Denies dyspepsia, Denies early satiety, Denies excessive gas, Denies heartburn, Denies hematemesis, Denies hematochezia, Denies indigestion, Denies jaundice, Denies lactose intolerance, Denies loss of appetite, Denies melena, Denies nausea, Denies vomiting Menstruation: Reports as per HPI, Denies amenorrhea, Denies amenorrhea on BC, Denies currently menstrual, Denies cycle < 21 days, Denies cycle > 35 days, Denies cycle variable, Denies menses 1-7 days, Denies menses 8 or > days, Denies menses variable, Denies period heavy, Denies period light, Denies period normal, Denies period spotting, Denies post hysterectomy, Denies postmenopausal , Denies premenarcheal Musculoskeletal: Reports as per HPI, Reports arm numbness/tingling, Denies atrophy, Denies fractures, Denies frequent falls, Denies gait dysfunction, Denies hot joints, Denies leg numbness/tingling, Denies limitation of motion, Denies loss of height, Denies low back pain, Denies morning stiffness, Denies muscle cramps, Denies muscle weakness, Denies myalgias, Denies neck pain, Denies neck stiffness, Denies prior amputations, Denies redness of joints, Denies shooting arm pain, Denies shooting leg pain Integumentary: Reports as per HPI Neurological: Reports as per HPI, Reports change in speech, Denies aphasia, Denies ataxia, Denies balance difficulties, Denies burning pain, Denies change in mentation, Denies change in smell/taste, Denies confusion, Denies convulsions , Denies double vision, Denies gait dysfunction, Denies head injury, Denies headaches, Denies hearing difficulties, Denies lack of coordination, Denies loss of vision, Denies memory loss, Denies migraines, Denies motor disturbance, Denies numbness, Denies paralysis, Denies paresthesias, Denies seizures, Denies sensory deficit, Denies spasticity, Denies syncope, Denies tic, Denies tingling , Denies transient paralysis, Denies tremors, Denies vertigo, Denies weakness, Denies visual changes Endocrine: Reports as per HPI, Denies cold intolerance, Denies deepening of the voice, Denies excessive sweating, Denies excessive thirst, Denies fatigue, Denies flushing, Denies heat intolerance, Denies high blood sugars, Denies increase in ring/shoe/hat size, Denies low blood sugars, Denies nocturia, Denies palpitations, Denies polydipsia, Denies polyphagia, Denies polyuria, Denies proptosis, Denies recent glucocorticoid use, Denies thyroid mass, Denies weight change Hematologic/Lymphatic: Reports as per HPI, Denies easy bleeding, Denies easy bruising, Denies lymphadenopathy, Denies lymphedema, Denies thrombophilia Allergic/Immunologic: Reports as per HPI, Denies allergic rhinitis, Denies anaphylaxis, Denies angioedema, Denies gluten intolerance, Denies persistent infections, Denies seasonal allergies, Denies urticaria, Denies wheezing Past Medical History Past Medical History: Atrial Fibrillation, Chest Pain / Angina, Deep Vein Thrombosis (DVT), GERD/Reflux, Hyperlipidemia, Hypertension, Liver Disease, Pulmonary Embolus (PE), Sleep Apnea/CPAP/BIPAP, Thyroid Disorder, Vascular Disorder Additional Past Medical History / Comment(s): KRISTY with CPAP use, hypothyroid, PE (pt cannot recall laterality), R arm DVT, post operative afib, 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 History of Any Multi-Drug Resistant Organisms: None Reported Past Surgical History: Adenoidectomy, Breast Surgery, Cholecystectomy, Coronary Bypass/CABG, Heart Catheterization With Stent, Hernia Repair, Tonsillectomy Additional Past Surgical History / Comment(s): Cardiac caths with stent to proximal LAD in 2003 and stent to mid LAD 2010, 03/09/12 CABG-3 vessel, umbilical hernia repair, bilateral breast bx-R breast had chrystall removed, L caratid endartectomy, UVPPP, colonoscopy, hemorrhoidectomy, bilateral cataract removal with lens implants. Past Anesthesia/Blood Transfusion Reactions: No Reported Reaction Date of Last Stent Placement:: 2010 Past Psychological History: Anxiety, Depression Smoking Status: Never smoker Past Alcohol Use History: None Reported Past Drug Use History: None Reported - Past Family History Father Family Medical History: Congestive Heart Failure (CHF), Coronary Artery Disease (CAD) Additional Family Medical History / Comment(s): Father at the age of 57yrs of CHF Mother Family Medical History: Cancer Additional Family Medical History / Comment(s): Mother had colon cancer. She lived to be 89 1/2yrs old. Brother(s) History Unknown: Yes Sister(s) Family Medical History: Cancer Daughter(s) History Unknown: Yes Medications and Allergies Home Medications Medication Instructions Recorded Confirmed Type Atorvastatin [Lipitor] 40 mg PO HS 07/31/14 06/12/17 History Levothyroxine Sodium [Synthroid] 50 mcg PO DAILY 07/31/14 06/12/17 History Warfarin [Coumadin] 2.5 mg PO HS 07/31/14 06/12/17 History Nitroglycerin Sl Tabs [Nitrostat] 0.4 mg SUBLINGUAL Q5M PRN 08/09/15 06/12/17 History Atenolol [Tenormin] 50 mg PO HS 01/10/16 06/12/17 History Pantoprazole Sodium [Protonix] 40 mg PO DAILY 06/12/17 06/12/17 History Allergies Allergy/AdvReac Type Severity Reaction Status Date / Time No Known Allergies Allergy Verified 06/12/17 14:13 Physical Exam Vitals: Vital Signs Temp Pulse Resp BP Pulse Ox 06/12/17 17:28 97.6 F 71 18 189/84 06/12/17 15:55 62 18 173/80 97 06/12/17 15:33 72 18 226/99 99 06/12/17 14:31 89 18 189/86 99 06/12/17 13:54 98.1 F 79 16 225/99 95 Intake and Output 06/12/17 06/12/17 06/12/17 06:59 14:59 22:59 Other: Weight 79.379 kg - Constitutional General appearance: cooperative, no acute distress, obese - EENT Eyes: EOMI, dentition normal, normal appearance - Neck Neck: normal ROM - Respiratory Respiratory: bilateral: CTA, negative: diminished, dullness, rales, rhonchi, wheezing, prolonged expiration, prolonged inspiration - Cardiovascular Rhythm: regular - Gastrointestinal General gastrointestinal: normal bowel sounds, soft - Integumentary Integumentary: decreased turgor, normal - Neurologic Neurologic: CNII-XII intact - Musculoskeletal Musculoskeletal: gait normal, strength equal bilaterally Results CBC & Chem 7: 06/13/17 06:18 06/13/17 06:15 Labs: Abnormal Lab Results - Last 24 Hours (Table) 06/12/17 06/12/17 Range/Units 14:00 14:00 PT 16.8 H (9.0-12.0) sec INR 1.8 H (<1.2) Creatinine 1.07 H (0.52-1.04) mg/dL Glucose 102 H (74-99) mg/dL Total Bilirubin 1.7 H (0.2-1.3) mg/dL AST 50 H (14-36) U/L Laboratory Results WBC 8.1 k/uL (3.8-10.6) 06/12/17 14:00 RBC 4.30 m/uL (3.80-5.40) 06/12/17 14:00 Hgb 12.5 gm/dL (11.4-16.0) 06/12/17 14:00 Hct 39.3 % (34.0-46.0) 06/12/17 14:00 MCV 91.5 fL (80.0-100.0) 06/12/17 14:00 MCH 29.2 pg (25.0-35.0) 06/12/17 14:00 MCHC 31.9 g/dL (31.0-37.0) 06/12/17 14:00 RDW 15.3 % (11.5-15.5) 06/12/17 14:00 Plt Count 279 k/uL (150-450) 06/12/17 14:00 Neutrophils % 43 % 06/12/17 14:00 Lymphocytes % 45 % 06/12/17 14:00 Monocytes % 6 % 06/12/17 14:00 Eosinophils % 4 % 06/12/17 14:00 Basophils % 0 % 06/12/17 14:00 Neutrophils # 3.5 k/uL (1.3-7.7) 06/12/17 14:00 Lymphocytes # 3.7 k/uL (1.0-4.8) 06/12/17 14:00 Monocytes # 0.5 k/uL (0-1.0) 06/12/17 14:00 Eosinophils # 0.3 k/uL (0-0.7) 06/12/17 14:00 Basophils # 0.0 k/uL (0-0.2) 06/12/17 14:00 PT 16.8 sec (9.0-12.0) H 06/12/17 14:00 INR 1.8 (<1.2) H 06/12/17 14:00 APTT 26.7 sec (22.0-30.0) 06/12/17 14:00 Sodium 141 mmol/L (137-145) 06/12/17 14:00 Potassium 4.1 mmol/L (3.5-5.1) 06/12/17 14:00 Chloride 104 mmol/L (98-107) 06/12/17 14:00 Carbon Dioxide 22 mmol/L (22-30) 06/12/17 14:00 Anion Gap 15 mmol/L 06/12/17 14:00 BUN 17 mg/dL (7-17) 06/12/17 14:00 Creatinine 1.07 mg/dL (0.52-1.04) H 06/12/17 14:00 Est GFR (CKD-EPI)AfAm 56 (>60 ml/min/1.73 sqM) 06/12/17 14:00 Est GFR (CKD-EPI)NonAf 48 (>60 ml/min/1.73 sqM) 06/12/17 14:00 Glucose 102 mg/dL (74-99) H 06/12/17 14:00 Calcium 9.0 mg/dL (8.4-10.2) 06/12/17 14:00 Total Bilirubin 1.7 mg/dL (0.2-1.3) H 06/12/17 14:00 AST 50 U/L (14-36) H 06/12/17 14:00 ALT 43 U/L (9-52) 06/12/17 14:00 Alkaline Phosphatase 74 U/L (38-126) 06/12/17 14:00 Total Creatine Kinase 72 U/L (30-135) 06/12/17 14:00 CK-MB (CK-2) 0.5 ng/mL (0.0-2.4) 06/12/17 14:00 CK-MB (CK-2) Rel Index 0.7 06/12/17 14:00 Troponin I <0.012 ng/mL (0.000-0.034) 06/12/17 14:00 Total Protein 7.7 g/dL (6.3-8.2) 06/12/17 14:00 Albumin 4.1 g/dL (3.5-5.0) 06/12/17 14:00 Thrombosis Risk Factor Assmnt - Choose All That Apply Each Factor Represents 1 point: Obesity (BMI >25) Each Risk Factor Represents 3 Points: Age 75 years or older Each Risk Factor Represents 5 Points: Stroke (< 1 month) Thrombosis Risk Factor Assessment Total Risk Factor Score: 9 Thrombosis Risk Factor Assessment Level: High Risk Assessment and Plan Plan: 1. Acute TIA presenting with dysarthria, and word finding difficulties, hypertensive emergency on evaluation, patient will be monitored very closely, MRI of the brain to be obtained, neurology consultation, aspirin 81 mg daily, cardiology has started on Zestril 5 mg every morning, blood pressure currently is in the systolic 190s, add amlodipine 5 mg daily at bedtime 2. Uncontrolled blood pressure with hypertensive urgency 5 mg senna by mouth every morning with amlodipine 5 mg daily at bedtime She is to continue metoprolol was continued 3. Ventricular nonsustained wide complex tachycardia, approximately 44 beats, cardiology is on the consultation, check magician level, continue metoprolol, 3. CAD with CABG 3 vessel disease in 2012, history of cardiac stents with last one placed in 2010 graft 4. history DVT and pulmonary emboli for which she requires lifelong anticoagulation stable she is on Coumadin and INRs will be obtained, 5.. History of pulmonary emboli for which she is chronically anticoagulated with Coumadin, Dr. Cook/Thelma Nicholson monitoring INRs as outpatient 6 Proximal atrial fibrillation currently in sinus rhythm on long-term anticoagulation with Coumadin 6. Hyperlipidemia on Lipitor 40 7. Hypothyroidism on Synthroid 50 8. Obstructive sleep apnea on CPAP 9. History of PAD currently asymptomatic DVT prophylaxis on maintenance Coumadin GI prophylaxis on Pepcid
[2017-06-13 20:28] LABS: Hemoglobin A1C 5.7 % (4.0-6.0)
[2017-06-13] MEDS ORDERED: amLODIPine 5 MG TAB PO SCH (21:00)
[2017-06-13] MEDS ORDERED: ATENOLOL 50 MG TAB PO SCH (21:00)
[2017-06-13] MEDS ORDERED: ATORVASTATIN 80 MG TAB PO SCH (21:00)
[2017-06-13] MEDS ORDERED: ATORVASTATIN 40 MG TAB PO SCH (21:00)
[2017-06-13] MEDS: FAMOTIDINE 20 MG TAB PO SCH (21:41)
[2017-06-14 06:01] LABS: Calcium 8.6 mg/dL (8.4-10.2); Potassium 3.8 mmol/L (3.5-5.1)
[2017-06-14 06:05] LABS: INR 1.5 (<1.2); Prothrombin Time 13.9 sec (9.0-12.0)
[2017-06-14] MEDS ORDERED: ATORVASTATIN 80 MG TAB PO SCH (09:00)
[2017-06-14] MEDS: ASPIRIN 81 MG PO SCH (09:08)
[2017-06-14] MEDS: LISINOPRIL 5 MG TAB PO SCH (09:08)
[2017-06-14] MEDS: FAMOTIDINE 20 MG TAB PO SCH (09:08)
[2017-06-14 09:11] VITALS: TEMP 97.1
[2017-06-14 12:51] VITALS: BP 112/52; PULSE 73
--- NOTE | 2017-06-14 13:19 | PN ---
PROGRESS NOTE Mrs. Fuentes is an 81-year-old female with a known history of coronary artery disease, status post coronary artery bypass grafting. She is feeling much better today. Her headache has resolved. She denies any chest pain. Her breathing has been stable. She denies any dizziness or palpitation and continues to be in sinus mechanism. She has underwent an echocardiogram with a bubble study revealed no evidence of shunting. Hemodynamically, she has been stable. She continues to be at this time on amlodipine 5 mg daily, aspirin once a day, atenolol 50 mg daily, lisinopril 5 mg daily and Coumadin. PHYSICAL EXAMINATION: Blood pressure 112/50 with the heart rate in the 70s. LUNGS: Clear. HEART: Regular rate and rhythm. S1, S2. No S3, no rub with a systolic murmur. ABDOMEN: Soft, nontender. EXTREMITIES: No edema. LAB DATA: Lab data revealed an INR 1.5, BUN and creatinine 34 and 2.2. IMPRESSION: 1. Status post transient ischemic attack. 2. Status post coronary artery bypass grafting. 3. History of deep venous thrombosis and pulmonary embolism in the past. 4. Worsening renal function. RECOMMENDATION: I will stop her LEA inhibitor because of the worsening renal function. We will continue on the anticoagulation. She will receive 5 mg of Coumadin today. From the cardiac standpoint, she is stable. She will follow up with Dr. Guido following discharge. MMODL / IJN: [id number] /
[2017-06-14] MEDS ORDERED: MORPHINE ORAL SOLN 10 MG/5 ML CUP PO PRN (13:36)
[2017-06-14] MEDS ORDERED: WARFARIN 5 MG TAB PO SCH (18:00)
[2017-06-15] MEDS ORDERED: FAMOTIDINE 20 MG TAB PO SCH (09:00)
--- NOTE | 2017-06-15 12:04 | P.DS ---
Providers Date of admission: 06/12/17 16:58 Expected date of discharge: 06/14/17 Attending physician: Mia Bailey Consults: 06/12/17 17:00 Consult Physician Routine Consulting Provider: Lamine Mills Consult Reason/Comments: Wide complex tach/ Vtach Do you want consulting provider notified?: Yes Primary care physician: [place] [facility] Course: This Is an 81-year-old pleasant lady patient of [facility] Cook/Dr. Hay Montaño. She also sees Dr. Burch from cardiologyS/Thelma Nicholson from pulmonary medicine. She has an underlying history of CAD prior CABG 3 vessel disease in February 2011 cardiac stents, with last cardiac stent in 2010. chronic atrial fibrillation GERD hypertension hyperlipidemia previous PE and obstructive sleep apnea cardiac history is relevant for cardiac cath with stent to the proximal LAD 2003, stent to the mid LAD 2010, CABG G and 2013 3 vessel GI bleeding in January 2016, currently maintained on Coumadin secondary to pulmonary emboli 2009 for which he is on chronic anticoagulation monitored by Dr. Nicolás Nicholson She was admitted to emergency room Secondary to dysarthria. Patient was at her normal state of health, and around wound, patient was over the phone and talked to her daughter when she has difficulty in word finding, and articulation. This lasted for approximately 15 minutes, there is no other neurologic deficits accompanying this including lightheadedness or dizziness, vision has had headaches, and no motor weakness in the upper and lower extremities. She was subsequently seen in emergency room with no recurrence of her symptoms. Patient has nausea and vomiting, no abdominal pain along with the above complaints. Patient doesn't have any dysuria hematuria or melena hematochezia 06/14: Echocardiogram reveals EF of 55-60% with mild concentric left ventricular hypertrophy, mild aortic valve sclerosis. MRI of the brain revealed no acute infarct, midline shift or mass effect. No abnormal intracranial enhancement. Mild nonspecific white matter changes likely chronic microangiopathic. Mild left frontal and ethmoid air sinus disease. Patient's symptoms have completely resolved. Patient will be discharged home today in stable condition. Discharge diagnoses: 1. Acute TIA presenting with dysarthria, and word finding difficulties, hypertensive emergency 2. Uncontrolled blood pressure with hypertensive urgency 3. Ventricular nonsustained wide complex tachycardia 4. CAD with CABG 3 vessel disease in 2012, history of cardiac stents with last one placed in 2010 graft 5. 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 History of pulmonary emboli for which she is chronically anticoagulated with Coumadin, S/P Bharat monitoring INRs as outpatient 7. Paroxysmal atrial fibrillation 8. Hyperlipidemia 9. Hypothyroidism 10. Obstructive sleep apnea 11. History of PAD currently asymptomatic Discharge plan: Return home Impression and plan of care have been directed as dictated by the signing physician. Kristine Goldstein nurse practitioner acting as scribe for signing physician. Patient Condition at Discharge: Good Plan - Discharge Summary Discharge Rx Participant: Yes New Discharge Prescriptions: New amLODIPine [Norvasc] 5 mg PO HS #30 tab Aspirin 81 mg PO DAILY chew Atorvastatin [Lipitor] 80 mg PO HS #30 tab Continue Warfarin [Coumadin] 2.5 mg PO HS Levothyroxine Sodium [Synthroid] 50 mcg PO DAILY Nitroglycerin Sl Tabs [Nitrostat] 0.4 mg SUBLINGUAL Q5M PRN PRN Reason: Chest Pain Atenolol [Tenormin] 50 mg PO HS Pantoprazole Sodium [Protonix] 40 mg PO DAILY Discontinued Atorvastatin [Lipitor] 40 mg PO HS Discharge Medication List Levothyroxine Sodium [Synthroid] 50 mcg PO DAILY 07/31/14 [History] Warfarin [Coumadin] 2.5 mg PO HS 07/31/14 [History] Nitroglycerin Sl Tabs [Nitrostat] 0.4 mg SUBLINGUAL Q5M PRN 08/09/15 [History] Atenolol [Tenormin] 50 mg PO HS 01/10/16 [History] Pantoprazole Sodium [Protonix] 40 mg PO DAILY 06/12/17 [History] Aspirin 81 mg PO DAILY chew 06/14/17 [Rx] Atorvastatin [Lipitor] 80 mg PO HS #30 tab 06/14/17 [Rx] amLODIPine [Norvasc] 5 mg PO HS #30 tab 06/14/17 [Rx] Follow up Appointment(s)/Referral(s): Blayne Jimenez MD [STAFF PHYSICIAN] - 1 Week (Spoke to vice president corporate communications. Office will call with appointment time) Jad Paulino DO [Primary Care Provider] - 1 Week (Spoke to vice president corporate communications. Office will call with appointment time.) Corona Nicholson MD [STAFF PHYSICIAN] - 06/22/17 3:15 pm (Sunday) Ambulatory/Diagnostic Orders: Complete Blood Count w/diff [LAB.AMB] Location: Determined By Patient Comprehensive Metabolic Panel [LAB.AMB] Location: Determined By Patient Prothrombin Time INR [LAB.AMB] Location: Determined By Patient Patient Instructions/Handouts: Transient Ischemic Attack (DC), Safe Use of Anticoagulants (DC) Discharge Disposition: HOME SELF-CARE
== END 2017-06-14 15:55 | disposition home or self-care (01) | DRG 69 ==
LOC: EC 13:41 → 6SEL 16:58
PROVIDERS: ADMIT Family Medicine; ATTEND Family Medicine
DX: G45.9 Transient cerebral ischemic attack, unspecified (principal); I47.2 Ventricular tachycardia; I48.0 Paroxysmal atrial fibrillation; E83.42 Hypomagnesemia; I35.8 Other nonrheumatic aortic valve disorders; R47.01 Aphasia; E78.5 Hyperlipidemia, unspecified; E03.9 Hypothyroidism, unspecified; I16.1 Hypertensive emergency; G47.33 Obstructive sleep apnea (adult) (pediatric); R29.700 NIHSS score 0; R40.2142 Coma scale, eyes open, spontaneous, at arrival to emergency department; R40.2362 Coma scale, best motor response, obeys commands, at arrival to emergency department; R40.2252 Coma scale, best verbal response, oriented, at arrival to emergency department; I10 Essential (primary) hypertension; I44.0 Atrioventricular block, first degree; H53.8 Other visual disturbances; R47.1 Dysarthria and anarthria; I25.10 Atherosclerotic heart disease of native coronary artery without angina pectoris; K21.9 Gastro-esophageal reflux disease without esophagitis; K76.9 Liver disease, unspecified; M17.0 Bilateral primary osteoarthritis of knee; Z79.01 Long term (current) use of anticoagulants; Z79.890 Hormone replacement therapy; Z79.899 Other long term (current) drug therapy; Z86.79 Personal history of other diseases of the circulatory system; Z86.718 Personal history of other venous thrombosis and embolism; Z95.1 Presence of aortocoronary bypass graft; Z95.5 Presence of coronary angioplasty implant and graft; Z86.711 Personal history of pulmonary embolism; Z86.19 Personal history of other infectious and parasitic diseases; Z90.49 Acquired absence of other specified parts of digestive tract; Z96.1 Presence of intraocular lens; Z98.41 Cataract extraction status, right eye; Z98.42 Cataract extraction status, left eye; Z86.59 Personal history of other mental and behavioral disorders; Z82.49 Family history of ischemic heart disease and other diseases of the circulatory system; Z80.0 Family history of malignant neoplasm of digestive organs
CPT/HCPCS: 36415; 70450; 70496; 70498; 70553; 71046; 80048; 80053; 80061; 82550; 82553; 83036; 83090; 83735; 84132; 84439; 84484; 85025; 85610; 85730; 93005; 93306; 94760; 96374; 99291

== ENCOUNTER 2017-07-31 23:59 | Emergency (ER) | payer MEDICARE, BC ==
[2017-08-01 00:07] VITALS: TEMP 98.5
[2017-08-01] MEDS ORDERED: SODIUM CHLORIDE 0.9% 1,000 ML IV ONE (00:28)
[2017-08-01 01:16] LABS: Basophils % (A) 0 %; Eosinophils # (A) 0.3 k/uL (0-0.7); Eosinophils % (A) 4 %; HCT 35.8 % (34.0-46.0); HGB 12.1 gm/dL (11.4-16.0); Lymphocytes # (A) 2.5 k/uL (1.0-4.8); Lymphocytes % (A) 29 %; MCH 30.6 pg (25.0-35.0); MCHC 33.8 g/dL (31.0-37.0); MCV 90.7 fL (80.0-100.0); Mean Platelet Volume 7.3; Monocytes # (A) 0.4 k/uL (0-1.0); Monocytes % (A) 5 %; Neutrophils # (A) 5.2 k/uL (1.3-7.7); Neutrophils % (A) 60 %; Platelet Count 251 k/uL (150-450); RBC 3.94 m/uL (3.80-5.40); RDW 15.8 % (11.5-15.5); WBC 8.6 k/uL (3.8-10.6)
--- NOTE | 2017-08-01 01:19 | XR ---
EXAMINATION TYPE: XR KUB DATE OF EXAM: 08/01/2017 COMPARISON: NONE HISTORY: Right flank pain TECHNIQUE: 2 views FINDINGS: There is no sign of intestinal obstruction or pneumoperitoneum. Fecal pattern is normal. Th ere are surgical clips probably from cholecystectomy. There is vascular calcification. IMPRESSION: Nonacute abdomen.
--- NOTE | 2017-08-01 01:20 | XR ---
EXAMINATION TYPE: XR Hip Complete RT DATE OF EXAM: 08/01/2017 COMPARISON: NONE HISTORY: Hip pain TECHNIQUE: 2 views FINDINGS: There is some spurring of the acetabulum. I see no fracture nor dislocation. Proximal femur is intact. Sacroiliac joint is intact. IMPRESSION: Hypertrophic spurring. No fracture seen.
[2017-08-01 01:25] LABS: INR 1.5 (<1.2); Prothrombin Time 14.1 sec (9.0-12.0)
[2017-08-01 01:27] LABS: Albumin 3.8 g/dL (3.5-5.0); Calcium 8.9 mg/dL (8.4-10.2); Potassium 3.4 mmol/L (3.5-5.1); Total Bilirubin 1.2 mg/dL (0.2-1.3); Total Protein 6.8 g/dL (6.3-8.2)
--- NOTE | 2017-08-01 02:34 | ED ---
Fall HPI - General Chief Complaint: Fall Stated Complaint: hip pain Time Seen by Provider: 08/01/17 00:09 Source: patient, EMS Mode of arrival: EMS - History of Present Illness Initial Comments: 81 years old female complaining about the right hip pain in the right flank pain she fell about 10 days ago she fractured her left forearm and there was no hip pain back then now she is complaining about the right-sided hip pain and right flank pain. Denies any headaches no neck stiffness no chest pain or shortness of breath no symptoms of TIA or CVA - Related Data Home Medications Medication Instructions Recorded Confirmed Levothyroxine Sodium [Synthroid] 50 mcg PO DAILY 07/31/14 06/12/17 Warfarin [Coumadin] 2.5 mg PO HS 07/31/14 06/12/17 Nitroglycerin Sl Tabs [Nitrostat] 0.4 mg SUBLINGUAL Q5M PRN 08/09/15 06/12/17 Atenolol [Tenormin] 50 mg PO HS 01/10/16 06/12/17 Pantoprazole Sodium [Protonix] 40 mg PO DAILY 06/12/17 06/12/17 Previous Rx's Medication Instructions Recorded Aspirin 81 mg PO DAILY chew 06/14/17 Atorvastatin [Lipitor] 80 mg PO HS #30 tab 06/14/17 amLODIPine [Norvasc] 5 mg PO HS #30 tab 06/14/17 Allergies Allergy/AdvReac Type Severity Reaction Status Date / Time No Known Allergies Allergy Verified 08/01/17 00:07 Review of Systems ROS Statement: Those systems with pertinent positive or pertinent negative responses have been documented in the HPI. ROS Other: All systems not noted in ROS Statement are negative. 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 History of Any Multi-Drug Resistant Organisms: None Reported Past Surgical History: Adenoidectomy, Breast Surgery, Cholecystectomy, Coronary Bypass/CABG, Heart Catheterization With Stent, Hernia Repair, Tonsillectomy Additional Past Surgical History / Comment(s): Cardiac caths with stent to proximal LAD in 2003 and stent to mid LAD 2010, 03/09/12 CABG-3 vessel, umbilical hernia repair, bilateral breast bx-R breast had chrystall removed, L caratid endartectomy, UVPPP, colonoscopy, hemorrhoidectomy, bilateral cataract removal with lens implants. Past Anesthesia/Blood Transfusion Reactions: No Reported Reaction Additional Past Anesthesia/Blood Transfusion Reaction / Comment(s): never recieved any blood in past. Date of Last Stent Placement:: 2010 Past Psychological History: Anxiety, Depression Smoking Status: Never smoker Past Alcohol Use History: None Reported Past Drug Use History: None Reported - Past Family History Father Family Medical History: Congestive Heart Failure (CHF), Coronary Artery Disease (CAD) Additional Family Medical History / Comment(s): Father at the age of 57yrs of CHF Mother Family Medical History: Cancer Additional Family Medical History / Comment(s): Mother had colon cancer. She lived to be 89 1/2yrs old. Brother(s) History Unknown: Yes Sister(s) Family Medical History: Cancer Daughter(s) History Unknown: Yes General Exam - General Exam Comments Initial Comments: General: The patient is awake and alert, in no distress, and does not appear acutely ill. Skin: Skin is warm and dry and no rashes or lesions are noted. Eye: Pupils are equal, round and reactive to light, extra-ocular movements are intact; there is normal conjunctiva bilaterally. Ears, nose, mouth and throat: There are moist mucous membranes and no oral lesions. Neck: The neck is supple, there is no tenderness or JVD. Cardiovascular: There is a regular rate and rhythm. No murmur, rub or gallop is appreciated. Respiratory: To auscultation bilateral, no wheezing no rhonchi no distress respiratory tate noticed Gastrointestinal: Tender in the right flank area, is some mild tenderness, bowel sounds are positive no guarding no rebounds no signs of any peritonitis. Back: There is no tenderness to palpation in the midline. There is no obvious deformity. Musculoskeletal: Normal ROM, no tenderness, There is no pedal edema. There is no calf tenderness or swelling. No cords were appreciated. Neurological: CN II-XII intact, Cranial nerves III through XII are intact. There are no obvious motor or sensory deficits. Coordination appears grossly intact. Speech is normal. Psychiatric: Cooperative, appropriate mood & affect, normal judgment. Limitations: no limitations Course Vital Signs 08/01/17 08/01/17 08/01/17 00:03 02:47 03:06 Temperature 98.5 F Pulse Rate 82 68 74 Respiratory 20 18 16 Rate Blood Pressure 201/75 226/98 170/75 O2 Sat by Pulse 95 96 96 Oximetry INR is 1.5 CBC is normal creatinine is 1.10 KUB is unremarkable right hip x- rays normal, she ablated well in the ER there was no limp or worsening of the pain with the ambulation in the right hip, urinalysis is negative she was given an additional Coumadin 2.5 mg considering her history of DVT and PE and low INR she is advised to follow-up with her family doctor for the INR being subtherapeutic, patient was explained that INR should be between 2 and 3 Medical Decision Making - Lab Data Result diagrams: 08/01/17 00:59 08/01/17 00:59 Lab Results 08/01/17 08/01/17 08/01/17 Range/Units 00:59 00:59 00:59 WBC 8.6 (3.8-10.6) k/uL RBC 3.94 (3.80-5.40) m/uL Hgb 12.1 (11.4-16.0) gm/dL Hct 35.8 (34.0-46.0) % MCV 90.7 (80.0-100.0) fL MCH 30.6 (25.0-35.0) pg MCHC 33.8 (31.0-37.0) g/dL RDW 15.8 H (11.5-15.5) % Plt Count 251 (150-450) k/uL Neutrophils % 60 % Lymphocytes % 29 % Monocytes % 5 % Eosinophils % 4 % Basophils % 0 % Neutrophils # 5.2 (1.3-7.7) k/uL Lymphocytes # 2.5 (1.0-4.8) k/uL Monocytes # 0.4 (0-1.0) k/uL Eosinophils # 0.3 (0-0.7) k/uL Basophils # 0.0 (0-0.2) k/uL PT 14.1 H (9.0-12.0) sec INR 1.5 H (<1.2) Sodium 142 (137-145) mmol/L Potassium 3.4 L (3.5-5.1) mmol/L Chloride 104 (98-107) mmol/L Carbon Dioxide 21 L (22-30) mmol/L Anion Gap 17 mmol/L BUN 20 H (7-17) mg/dL Creatinine 1.10 H (0.52-1.04) mg/dL Est GFR (CKD-EPI)AfAm 54 (>60 ml/min/1.73 sqM) Est GFR (CKD-EPI)NonAf 47 (>60 ml/min/1.73 sqM) Glucose 145 H (74-99) mg/dL Calcium 8.9 (8.4-10.2) mg/dL Total Bilirubin 1.2 (0.2-1.3) mg/dL AST 44 H (14-36) U/L ALT 37 (9-52) U/L Alkaline Phosphatase 69 (38-126) U/L Total Protein 6.8 (6.3-8.2) g/dL Albumin 3.8 (3.5-5.0) g/dL Urine Color Urine Appearance (Clear) Urine pH (5.0-8.0) Ur Specific [place] (1.001-1.035) Urine Protein (Negative) Urine Glucose (UA) (Negative) Urine Ketones (Negative) Urine Blood (Negative) Urine Nitrite (Negative) Urine Bilirubin (Negative) Urine Urobilinogen (<2.0) mg/dL Ur Leukocyte Esterase (Negative) 08/01/17 Range/Units 02:33 WBC (3.8-10.6) k/uL RBC (3.80-5.40) m/uL Hgb (11.4-16.0) gm/dL Hct (34.0-46.0) % MCV (80.0-100.0) fL MCH (25.0-35.0) pg MCHC (31.0-37.0) g/dL RDW (11.5-15.5) % Plt Count (150-450) k/uL Neutrophils % % Lymphocytes % % Monocytes % % Eosinophils % % Basophils % % Neutrophils # (1.3-7.7) k/uL Lymphocytes # (1.0-4.8) k/uL Monocytes # (0-1.0) k/uL Eosinophils # (0-0.7) k/uL Basophils # (0-0.2) k/uL PT (9.0-12.0) sec INR (<1.2) Sodium (137-145) mmol/L Potassium (3.5-5.1) mmol/L Chloride (98-107) mmol/L Carbon Dioxide (22-30) mmol/L Anion Gap mmol/L BUN (7-17) mg/dL Creatinine (0.52-1.04) mg/dL Est GFR (CKD-EPI)AfAm (>60 ml/min/1.73 sqM) Est GFR (CKD-EPI)NonAf (>60 ml/min/1.73 sqM) Glucose (74-99) mg/dL Calcium (8.4-10.2) mg/dL Total Bilirubin (0.2-1.3) mg/dL AST (14-36) U/L ALT (9-52) U/L Alkaline Phosphatase (38-126) U/L Total Protein (6.3-8.2) g/dL Albumin (3.5-5.0) g/dL Urine Color Light Yellow Urine Appearance Clear (Clear) Urine pH 5.5 (5.0-8.0) Ur Specific [place] 1.011 (1.001-1.035) Urine Protein Negative (Negative) Urine Glucose (UA) Negative (Negative) Urine Ketones Negative (Negative) Urine Blood Negative (Negative) Urine Nitrite Negative (Negative) Urine Bilirubin Negative (Negative) Urine Urobilinogen <2.0 (<2.0) mg/dL Ur Leukocyte Esterase Negative (Negative) Disposition Clinical Impression: Right flank pain, Hip pain Disposition: HOME SELF-CARE Condition: Good Instructions: Fall Prevention for Older Adults (ED) Is patient prescribed a controlled substance at d/c from ED?: No Referrals: Jad Paulino DO [Primary Care Provider] - 1-2 days
[2017-08-01 02:43] LABS: Appearance,Urine Clear (Clear); Bilirubin,Urine Negative (Negative); Blood,Urine Negative (Negative); Color,Urine Light Yellow; Glucose,Urine (UA) Negative (Negative); Ketones,Urine Negative (Negative); Leukocyte Esterase,Urine Negative (Negative); Nitrite,Urine Negative (Negative); PH, Urine 5.5 (5.0-8.0); Protein,Urine Negative (Negative); Specific Gravity,Urine 1.011 (1.001-1.035); Urobilinogen,Urine <2.0 mg/dL (<2.0)
[2017-08-01] MEDS ORDERED: amLODIPine 5 MG TAB PO STA (02:47)
[2017-08-01] MEDS ORDERED: LABETALOL 5 MG/ML VIAL MDV IVP STA (02:47)
[2017-08-01] MEDS ORDERED: WARFARIN 2.5 MG TAB PO STA (02:53)
[2017-08-01 03:07] VITALS: BP 170/75; PULSE 74; RESP 16
== END 2017-08-01 03:37 | disposition home or self-care (01) ==
LOC: EC 23:59
DX: M25.551 Pain in right hip (principal); R10.9 Unspecified abdominal pain; I10 Essential (primary) hypertension; I48.91 Unspecified atrial fibrillation; E78.5 Hyperlipidemia, unspecified; E03.9 Hypothyroidism, unspecified; K21.9 Gastro-esophageal reflux disease without esophagitis; Z86.711 Personal history of pulmonary embolism; Z86.718 Personal history of other venous thrombosis and embolism; Z95.1 Presence of aortocoronary bypass graft; Z79.01 Long term (current) use of anticoagulants; Z79.899 Other long term (current) drug therapy; W19.XXXA Unspecified fall, initial encounter
CPT/HCPCS: 36415; 73502; 74018; 80053; 81003; 85025; 85610; 96361; 96374; 99284

== ENCOUNTER 2017-08-06 05:28 | Emergency (ER) | payer MEDICARE, BC ==
[2017-08-06 05:32] VITALS: TEMP 97.7
[2017-08-06] MEDS ORDERED: HYDROcodone/APAP 5-325MG 1 EACH TAB PO STA (06:30)
--- NOTE | 2017-08-06 06:35 | ED ---
General Adult HPI - General Source: patient, RN notes reviewed, old records reviewed Mode of arrival: ambulatory Limitations: no limitations <Dion Rodriguez - Last Filed: 08/06/17 06:34> <[address]el [address] - Last Filed: 08/06/17 08:39> - General Chief complaint: Back Pain/Injury Stated complaint: Back Pain Time Seen by Provider: 08/06/17 06:19 - History of Present Illness Initial comments: This is a 81-year-old female the ER for evaluation patient presents today for evaluation regarding back pain, severe back pain and right flank pain and right hip pain. Patient had recent trauma, she sustained left arm fracture and back pain. Progressively worsening. She was seen at x-rays which are negative, she is taking Tylenol for pain with no help. No dysuria no fevers, no diarrhea ( Dion Rodriguez) - Related Data Home Medications Medication Instructions Recorded Confirmed Levothyroxine Sodium [Synthroid] 50 mcg PO DAILY 07/31/14 06/12/17 Warfarin [Coumadin] 2.5 mg PO HS 07/31/14 06/12/17 Nitroglycerin Sl Tabs [Nitrostat] 0.4 mg SUBLINGUAL Q5M PRN 08/09/15 06/12/17 Atenolol [Tenormin] 50 mg PO HS 01/10/16 06/12/17 Pantoprazole Sodium [Protonix] 40 mg PO DAILY 06/12/17 06/12/17 Previous Rx's Medication Instructions Recorded Aspirin 81 mg PO DAILY chew 06/14/17 Atorvastatin [Lipitor] 80 mg PO HS #30 tab 06/14/17 amLODIPine [Norvasc] 5 mg PO HS #30 tab 06/14/17 Hydrocodone/Acetaminophen [[place] 1 each PO Q6HR PRN #12 tab 08/06/17 5-325] Allergies Allergy/AdvReac Type Severity Reaction Status Date / Time No Known Allergies Allergy Verified 08/06/17 05:32 Review of Systems ROS Other: All systems not noted in ROS Statement are negative. <Dion Rodriguez - Last Filed: 08/06/17 06:34> ROS Other: All systems not noted in ROS Statement are negative. <Shakeel Street - Last Filed: 08/06/17 08:39> ROS Statement: Those systems with pertinent positive or pertinent negative responses have been documented in the HPI. 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 History of Any Multi-Drug Resistant Organisms: None Reported Past Surgical History: Adenoidectomy, Breast Surgery, Cholecystectomy, Coronary Bypass/CABG, Heart Catheterization With Stent, Hernia Repair, Tonsillectomy Additional Past Surgical History / Comment(s): Cardiac caths with stent to proximal LAD in 2003 and stent to mid LAD 2010, 03/09/12 CABG-3 vessel, umbilical hernia repair, bilateral breast bx-R breast had chrystall removed, L caratid endartectomy, UVPPP, colonoscopy, hemorrhoidectomy, bilateral cataract removal with lens implants. Past Anesthesia/Blood Transfusion Reactions: No Reported Reaction Additional Past Anesthesia/Blood Transfusion Reaction / Comment(s): never recieved any blood in past. Date of Last Stent Placement:: 2010 Past Psychological History: Anxiety, Depression Smoking Status: Never smoker Past Alcohol Use History: None Reported Past Drug Use History: None Reported - Past Family History Father Family Medical History: Congestive Heart Failure (CHF), Coronary Artery Disease (CAD) Additional Family Medical History / Comment(s): Father at the age of 57yrs of CHF Mother Family Medical History: Cancer Additional Family Medical History / Comment(s): Mother had colon cancer. She lived to be 89 1/2yrs old. Brother(s) History Unknown: Yes Sister(s) Family Medical History: Cancer Daughter(s) History Unknown: Yes <Dion Rodriguez - Last Filed: 08/06/17 06:34> General Exam Limitations: no limitations General appearance: alert, in no apparent distress Head exam: Present: atraumatic, normocephalic, normal inspection Eye exam: Present: normal appearance, PERRL, EOMI. Absent: scleral icterus, conjunctival injection, periorbital swelling ENT exam: Present: normal exam, mucous membranes moist Neck exam: Present: normal inspection. Absent: tenderness, meningismus, lymphadenopathy Respiratory exam: Present: normal lung sounds bilaterally. Absent: respiratory distress, wheezes, rales, rhonchi, stridor Cardiovascular Exam: Present: regular rate, normal rhythm, normal heart sounds. Absent: systolic murmur, diastolic murmur, rubs, gallop, clicks GI/Abdominal exam: Present: soft, normal bowel sounds. Absent: distended, tenderness, guarding, rebound, rigid Extremities exam: Present: normal inspection, full ROM, normal capillary refill. Absent: tenderness, pedal edema, joint swelling, calf tenderness Back exam: Present: normal inspection Neurological exam: Present: alert, oriented X3, CN II-XII intact Psychiatric exam: Present: normal affect, normal mood Skin exam: Present: warm, dry, intact, normal color. Absent: rash <Dion Rodriguez - Last Filed: 08/06/17 06:34> Course <Dion Rodriguez - Last Filed: 08/06/17 06:34> <Shakeel [address] - Last Filed: 08/06/17 08:39> Vital Signs 08/06/17 08/06/17 08/06/17 05:29 06:03 08:33 Temperature 97.7 F Pulse Rate 78 61 Respiratory 18 16 Rate Blood Pressure 215/90 172/97 175/78 O2 Sat by Pulse 96 95 Oximetry - Reevaluation(s) Reevaluation #1: 08/06/17 06:35 Hospital visit in ER visit is reviewed (Dion Rodriguez) Medical Decision Making <Dion Rodriguez - Last Filed: 08/06/17 06:34> - Radiology Data Radiology results: report reviewed (I did review the imaging and reports no evidence of acute fractures on any of the scans. Multiple incidental findings with the bleeding from the report.), image reviewed <Shakeel Street - Last Filed: 08/06/17 08:39> - Medical Decision Making I did a long discussion with the patient regarding findings she complains of no back pain currently while at rest after being given a medication earlier. We did a long discussion regarding options the patient does not want to be admitted today she would like to go home and try the home medications and follow -up with her doctor. Her is in agreement with this. (Shakeel Street) Disposition <Dion Rodriguez - Last Filed: 08/06/17 06:34> Is patient prescribed a controlled substance at d/c from ED?: Yes If prescribed controlled substance>3 days was MAPS reviewed?: Prescribed <3 Days <[address] - Last Filed: 08/06/17 08:39> Clinical Impression: Mechanical back pain Disposition: HOME SELF-CARE Condition: Good Instructions: Back Pain (ED) Prescriptions: Hydrocodone/Acetaminophen [[place] 5-325] 1 each PO Q6HR PRN #12 tab PRN Reason: Pain Referrals: Jad Paulino DO [Primary Care Provider] - 1-2 days
--- NOTE | 2017-08-06 08:02 | CT ---
EXAMINATION TYPE: CT hip RT wo con DATE OF EXAM: 08/06/2017 COMPARISON: Right hip x-ray from 5 days ago HISTORY: Fall CT DLP: 320.7 mGycm Automated exposure control for dose reduction was used. FINDINGS: Osseous structures are demineralized. There is no acute fracture or dislocation in the right hip. The re is mild to moderate axial joint space loss with moderate head neck junction spurring particularly superiorly where there is adjacent acetabular spur. Visualized rami are intact. Diverticula are seen in the visualized sigmoid colon. There is no concerning pelvic fluid collection. Calcifications are seen in smaller uterus consistent with post menopausal age. Scattered vascular ca lcification is present. IMPRESSION: NO ACUTE FRACTURE OR DISLOCATION IN THE RIGHT HIP.
--- NOTE | 2017-08-06 08:06 | CT ---
EXAMINATION TYPE: CT lumbar spine wo con DATE OF EXAM: 08/06/2017 7:35 AM COMPARISON: NONE HISTORY: Fall injury with persistent low back pain CT DLP: 1176.5 mGycm Automated exposure control for dose reduction was used. Unenhanced CT of the lumbar spine was performed. Bone and soft tissue window settings are submitted as well as coronal and sagittal reconstructions. There are 5 lumbar-type vertebra identified. Osseous structures are demineralized. There is prominent Schmorl node in the posterior superior T12 and the central superior L1 endplates. Vertebral body hei ghts are maintained. There is mild to moderate posterior narrowing L1-L2 through L3-L4 levels. No lar ge posterior disc herniations are seen. No acute fracture or dislocation is evident. There is multile phu spinous process hypertrophy noted. Review of axial images shows a T12-L1 level to appear within normal limits. Axial images at L1-L2 level show posterior spur disc complex effacing anterior thecal sac on axial im age 22, bilateral neural foramina are patent. Axial images at L2-L3 level show posterior spur disc complex effacing anterior thecal sac on axial im age 32, there is mild bilateral anterior inferior neural foraminal narrowing at this level identified . Axial images at L3-L4 level show mild to moderate facet degenerative changes bilaterally. Spinal claude l is preserved, bilateral neural foramina are patent. Axial images at L4-L5 level show advanced facet degenerative changes bilaterally. Spinal canal is pre served. Bilateral neural foramina remain patent. Axial images at L5-S1 level show mild to moderate facet degenerative changes bilaterally. Spinal claude l is preserved. Bilateral neural foramina are patent. There are diverticula in the visualized left and sigmoid colon. There is fairly severe apical scarrin g change of visualized abdominal aorta. Central calculi in both kidneys favor vascular etiology. Ther e is partial visualization of cholecystectomy clips. IMPRESSION: No acute fracture or dislocation of the lumbar spine is present.
[2017-08-06 08:34] VITALS: BP 175/78; PULSE 61; RESP 16
--- NOTE | 2017-08-06 10:02 | CT ---
no i EXAMINATION TYPE: CT sacrum wo con DATE OF EXAM: 08/06/2017 COMPARISON: NONE HISTORY: Fall CT DLP: 1176.5 mGycm Automated exposure control for dose reduction was used. FINDINGS: Calcifications involving the uterine body incidentally noted. There is diverticulosis of the colon. There is diffuse osteopenia. Degenerative change lower lumbar spine noted. Sacrum is intact. No diagnostic evidence of acute fracture. Facet arthropathy of the lower lumbar spi ne. Osseous structures intact. IMPRESSION: NO ACUTE FRACTURE COLONIC DIVERTICULOSIS
== END 2017-08-06 08:45 | disposition home or self-care (01) ==
LOC: EC 05:28
DX: M54.9 Dorsalgia, unspecified (principal); R10.9 Unspecified abdominal pain; M25.551 Pain in right hip; I48.91 Unspecified atrial fibrillation; E03.9 Hypothyroidism, unspecified; I20.9 Angina pectoris, unspecified; I73.9 Peripheral vascular disease, unspecified; K21.9 Gastro-esophageal reflux disease without esophagitis; I10 Essential (primary) hypertension; G47.33 Obstructive sleep apnea (adult) (pediatric); Z99.89 Dependence on other enabling machines and devices; Z86.711 Personal history of pulmonary embolism; Z86.718 Personal history of other venous thrombosis and embolism; M19.90 Unspecified osteoarthritis, unspecified site; Z79.01 Long term (current) use of anticoagulants; Z79.899 Other long term (current) drug therapy; Z95.5 Presence of coronary angioplasty implant and graft; Z90.49 Acquired absence of other specified parts of digestive tract; W19.XXXA Unspecified fall, initial encounter
CPT/HCPCS: 72131; 72192; 99284

== ENCOUNTER 2017-11-16 16:17 | Observation (INO) | payer MEDICARE, BC ==
[2017-11-16 17:20] LABS: Basophils % (A) 0 %; Eosinophils # (A) 0.2 k/uL (0-0.7); Eosinophils % (A) 2 %; HCT 36.4 % (34.0-46.0); HGB 11.6 gm/dL (11.4-16.0); Lymphocytes # (A) 2.7 k/uL (1.0-4.8); Lymphocytes % (A) 31 %; MCH 30.2 pg (25.0-35.0); MCV 94.4 fL (80.0-100.0); Mean Platelet Volume 8.1; Monocytes # (A) 0.5 k/uL (0-1.0); Monocytes % (A) 5 %; Neutrophils # (A) 5.3 k/uL (1.3-7.7); Neutrophils % (A) 61 %; Platelet Count 238 k/uL (150-450); RBC 3.85 m/uL (3.80-5.40); RDW 15.9 % (11.5-15.5); WBC 8.7 k/uL (3.8-10.6)
[2017-11-16 17:35] LABS: INR 3.5 (<1.2); Partial Thromboplastin Time 30.9 sec (22.0-30.0); Prothrombin Time 31.1 sec (9.0-12.0)
[2017-11-16 17:36] LABS: Creatine Kinase 112 U/L (30-135)
[2017-11-16 17:37] LABS: Albumin 3.9 g/dL (3.5-5.0); Calcium 7.6 mg/dL (8.4-10.2); Potassium 3.3 mmol/L (3.5-5.1); Total Bilirubin 1.9 mg/dL (0.2-1.3); Total Protein 7.2 g/dL (6.3-8.2)
[2017-11-16 17:49] LABS: Creatine Kinase MB 0.6 ng/mL (0.0-2.4); Troponin I <0.012 ng/mL (0.000-0.034)
--- NOTE | 2017-11-16 18:01 | ED ---
General Adult HPI - General Chief complaint: Chest Pain Stated complaint: chest pain Source: patient Mode of arrival: ambulatory Limitations: no limitations - History of Present Illness Initial comments: Dictation was produced using [employer] dictation software. please excuse any grammatical, word or spelling errors. Chief Complaint: 82-year-old female with past medical history of CABG , A. fib, dyslipidemia presents with chest pain relieved with nitro. History of Present Illness: Patient is a 82-year-old female she states she isn' t been really stressed after finding on her daughter had extensive cancer. She was drinking a protein enrich beverage earlier today that was of the chocolate flavor when she got through approximately 80% of the drink. She states she didn 't experience some throat discomfort that was relieved after a couple minutes. She didn't experience some nasal congestion. Soon after she had episode of crushing chest pressure. Patient states she's never had chest pain like this before. Denies any associated diaphoresis or radiation to the shoulders or neck. Patient states she was at rest when this occurred. She took one dose of sublingual nitroglycerin with improvement of pain. Patient currently is a symptomatically. No constitutional symptoms. The ROS documented in this emergency department record has been reviewed and confirmed by me. Those systems with pertinent positive or negative responses have been documented in the HPI. All other systems are other negative and/or noncontributory. - Related Data Home Medications Medication Instructions Recorded Confirmed Levothyroxine Sodium [Synthroid] 50 mcg PO DAILY 07/31/14 11/16/17 Nitroglycerin Sl Tabs [Nitrostat] 0.4 mg SUBLINGUAL Q5M PRN 08/09/15 11/16/17 Atenolol [Tenormin] 50 mg PO HS 01/10/16 11/16/17 Pantoprazole Sodium [Protonix] 40 mg PO DAILY 06/12/17 11/16/17 Hydrocodone/Acetaminophen [Antoine 1 tab PO Q6HR PRN 11/16/17 11/16/17 5-325] Multivitamins, Thera [Multivitamin 1 tab PO DAILY 11/16/17 11/16/17 (formulary)] Warfarin Sodium 2.5 mg PO SUMOWETHFR 11/16/17 11/16/17 Warfarin Sodium 5 mg PO TUSA 11/16/17 11/16/17 Previous Rx's Medication Instructions Recorded Aspirin 81 mg PO DAILY chew 06/14/17 Atorvastatin [Lipitor] 80 mg PO HS #30 tab 06/14/17 amLODIPine [Norvasc] 5 mg PO HS #30 tab 06/14/17 Allergies Allergy/AdvReac Type Severity Reaction Status Date / Time No Known Allergies Allergy Verified 11/16/17 17:12 Review of Systems ROS Statement: Those systems with pertinent positive or pertinent negative responses have been documented in the HPI. ROS Other: All systems not noted in ROS Statement are negative. 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 History of Any Multi-Drug Resistant Organisms: None Reported Past Surgical History: Adenoidectomy, Breast Surgery, Cholecystectomy, Coronary Bypass/CABG, Heart Catheterization With Stent, Hernia Repair, Tonsillectomy Additional Past Surgical History / Comment(s): Cardiac caths with stent to proximal LAD in 2003 and stent to mid LAD 2010, 03/09/12 CABG-3 vessel, umbilical hernia repair, bilateral breast bx-R breast had chrystall removed, L caratid endartectomy, UVPPP, colonoscopy, hemorrhoidectomy, bilateral cataract removal with lens implants. Past Anesthesia/Blood Transfusion Reactions: No Reported Reaction Additional Past Anesthesia/Blood Transfusion Reaction / Comment(s): never recieved any blood in past. Date of Last Stent Placement:: 2010 Past Psychological History: Anxiety, Depression Smoking Status: Never smoker Past Alcohol Use History: None Reported Past Drug Use History: None Reported - Past Family History Father Family Medical History: Congestive Heart Failure (CHF), Coronary Artery Disease (CAD) Additional Family Medical History / Comment(s): Father at the age of 57yrs of CHF Mother Family Medical History: Cancer Additional Family Medical History / Comment(s): Mother had colon cancer. She lived to be 89 1/2yrs old. Brother(s) History Unknown: Yes Sister(s) Family Medical History: Cancer Daughter(s) History Unknown: Yes General Exam - General Exam Comments Initial Comments: \ PHYSICAL EXAM: General Impression: Alert and oriented x3, not in acute distress HEENT: Normocephalic atraumatic, extra-ocular movements intact, pupils equal and reactive to light bilaterally, mucous membranes moist. Cardiovascular: Heart regular rate and rhythm, S1&S2 audible, no murmurs, rubs or gallops Chest: Lungs clear to auscultation bilaterally, no rhonchi, no wheeze, no rales Abdomen: Bowel sounds present, abdomen soft, non-tender, non-distended, no organomegaly Musculoskeletal: Pulses present and equal in all extremities, no peripheral edema Motor: Power 5/5 bilaterally, no focal deficits noted Neurological: CN II-XII grossly intact, no focal motor or sensory deficits noted Skin: Intact with no visualized rashes Psych: Normal affect and mood Limitations: no limitations Course Vital Signs 11/16/17 11/16/17 16:18 17:49 Temperature 99.1 F Pulse Rate 91 82 Respiratory 18 16 Rate Blood Pressure 214/97 167/86 O2 Sat by Pulse 94 L 95 Oximetry Medical Decision Making - Medical Decision Making ED course: 82-year-old female presents with chief complaint of chest pain. Patient has positive cardiac history. Her history of present illness is moderately suspicious for acute coronary syndrome. Vital signs upon arrival shows blood pressure 214/97, rest of vital signs within acceptable limits. EKG shows isolated T-wave inversion in aVL. Laboratory evaluation obtained. CBC unremarkable. INR is 3.5. Patient is slightly supratherapeutic. Metabolic panel was obtained showing no acute processes. Abdominal labs are negative. First set of cardiac enzymes are negative. Chest x-ray shows no acute processes. Given patient's cardiac history in presentation there is concern that this could reflect acute coronary syndrome. She is a somatic at this time. We will have patient admitted to observation for serial troponins and cardiology consult. Patient given aspirin. Patient is understandable and agreeable to disposition. EKG Interpretation: A 12 lead EKG was obtained. It was interpreted by myself and attending physician. There is a P wave before every QRS complex. Rate is 82. Rhythm is normal sinus rhythm, NV interval 204, QRS 80, QTC 488. QT is not prolonged. No ST segment depression or elevation. EKG was compared to EKG from 06/13/2017 showing no acute processes.. Overall, this EKG is unremarkable - Lab Data Result diagrams: 11/16/17 16:47 11/16/17 16:47 Lab Results 11/16/17 11/16/17 11/16/17 Range/Units 16:47 16:47 16:47 WBC 8.7 (3.8-10.6) k/uL RBC 3.85 (3.80-5.40) m/uL Hgb 11.6 (11.4-16.0) gm/dL Hct 36.4 (34.0-46.0) % MCV 94.4 (80.0-100.0) fL MCH 30.2 (25.0-35.0) pg MCHC 32.0 (31.0-37.0) g/dL RDW 15.9 H (11.5-15.5) % Plt Count 238 (150-450) k/uL Neutrophils % 61 % Lymphocytes % 31 % Monocytes % 5 % Eosinophils % 2 % Basophils % 0 % Neutrophils # 5.3 (1.3-7.7) k/uL Lymphocytes # 2.7 (1.0-4.8) k/uL Monocytes # 0.5 (0-1.0) k/uL Eosinophils # 0.2 (0-0.7) k/uL Basophils # 0.0 (0-0.2) k/uL PT (9.0-12.0) sec INR (<1.2) APTT (22.0-30.0) sec Sodium 141 (137-145) mmol/L Potassium 3.3 L (3.5-5.1) mmol/L Chloride 105 (98-107) mmol/L Carbon Dioxide 23 (22-30) mmol/L Anion Gap 13 mmol/L BUN 14 (7-17) mg/dL Creatinine 1.04 (0.52-1.04) mg/dL Est GFR (CKD-EPI)AfAm 57 (>60 ml/min/1.73 sqM) Est GFR (CKD-EPI)NonAf 50 (>60 ml/min/1.73 sqM) Glucose 128 H (74-99) mg/dL Calcium 7.6 L (8.4-10.2) mg/dL Total Bilirubin 1.9 H (0.2-1.3) mg/dL AST 37 H (14-36) U/L ALT 30 (9-52) U/L Alkaline Phosphatase 60 (38-126) U/L Total Creatine Kinase 112 (30-135) U/L CK-MB (CK-2) 0.6 (0.0-2.4) ng/mL CK-MB (CK-2) Rel Index 0.5 Troponin I <0.012 (0.000-0.034) ng/mL Total Protein 7.2 (6.3-8.2) g/dL Albumin 3.9 (3.5-5.0) g/dL 11/16/17 Range/Units 16:47 WBC (3.8-10.6) k/uL RBC (3.80-5.40) m/uL Hgb (11.4-16.0) gm/dL Hct (34.0-46.0) % MCV (80.0-100.0) fL MCH (25.0-35.0) pg MCHC (31.0-37.0) g/dL RDW (11.5-15.5) % Plt Count (150-450) k/uL Neutrophils % % Lymphocytes % % Monocytes % % Eosinophils % % Basophils % % Neutrophils # (1.3-7.7) k/uL Lymphocytes # (1.0-4.8) k/uL Monocytes # (0-1.0) k/uL Eosinophils # (0-0.7) k/uL Basophils # (0-0.2) k/uL PT 31.1 H (9.0-12.0) sec INR 3.5 H (<1.2) APTT 30.9 H (22.0-30.0) sec Sodium (137-145) mmol/L Potassium (3.5-5.1) mmol/L Chloride (98-107) mmol/L Carbon Dioxide (22-30) mmol/L Anion Gap mmol/L BUN (7-17) mg/dL Creatinine (0.52-1.04) mg/dL Est GFR (CKD-EPI)AfAm (>60 ml/min/1.73 sqM) Est GFR (CKD-EPI)NonAf (>60 ml/min/1.73 sqM) Glucose (74-99) mg/dL Calcium (8.4-10.2) mg/dL Total Bilirubin (0.2-1.3) mg/dL AST (14-36) U/L ALT (9-52) U/L Alkaline Phosphatase (38-126) U/L Total Creatine Kinase (30-135) U/L CK-MB (CK-2) (0.0-2.4) ng/mL CK-MB (CK-2) Rel Index Troponin I (0.000-0.034) ng/mL Total Protein (6.3-8.2) g/dL Albumin (3.5-5.0) g/dL Disposition Clinical Impression: Chest pain Disposition: ADMITTED IP TO THIS HOSP Condition: Fair Referrals: Jad Paulino DO [Primary Care Provider] - 1-2 days Decision Time: 19:03
--- NOTE | 2017-11-16 18:27 | XR ---
EXAMINATION TYPE: XR chest 2V DATE OF EXAM: 11/16/2017 COMPARISON: 06/12/2017 HISTORY: Chest pain TECHNIQUE: Frontal and lateral views of the chest are obtained. FINDINGS: Heart is normal. Thoracic aorta is atheromatous. There is some mild pleural thickening at the lateral left lung base. There is no heart failure. There are chest leads. Bony thorax appears int act. IMPRESSION: Minimal pleural reaction at the left lateral lung base is unchanged. Normal heart.
[2017-11-16] MEDS ORDERED: ASPIRIN 81 MG PO STA (18:55)
[2017-11-16] MEDS ORDERED: NITROGLYCERIN SL TABS 0.4 MG TAB SUBLINGUAL PRN (18:55)
[2017-11-16] MEDS ORDERED: WARFARIN 5 MG TAB PO SCH (19:00)
[2017-11-16] MEDS ORDERED: amLODIPine 5 MG TAB PO SCH (21:00)
[2017-11-16] MEDS ORDERED: ATENOLOL 50 MG TAB PO SCH (21:00)
[2017-11-16] MEDS ORDERED: ATORVASTATIN 80 MG TAB PO SCH (21:00)
[2017-11-16 21:38] VITALS: BMI 29.2
[2017-11-17] MEDS ORDERED: HEPARIN SODIUM,PORCINE 5,000 UNIT/ML 1 ML VIAL SQ SCH
[2017-11-17 00:56] LABS: Creatine Kinase 90 U/L (30-135)
[2017-11-17 01:09] LABS: Creatine Kinase MB 0.5 ng/mL (0.0-2.4); Troponin I <0.012 ng/mL (0.000-0.034)
[2017-11-17 05:31] LABS: Cholesterol 131 mg/dL (<200); HDL Cholesterol 33 mg/dL (40-60); LDL Cholesterol,Calculated 60 mg/dL (0-99); Triglycerides 190 mg/dL (<150)
[2017-11-17 05:34] LABS: Creatine Kinase 81 U/L (30-135)
[2017-11-17 05:47] LABS: Creatine Kinase MB 0.5 ng/mL (0.0-2.4); Troponin I <0.012 ng/mL (0.000-0.034)
[2017-11-17] MEDS: LEVOTHYROXINE 50 MCG TAB PO SCH ×2 (06:05→08:05)
[2017-11-17] MEDS ORDERED: PANTOPRAZOLE 40 MG TABLET PO SCH (07:30)
[2017-11-17 07:47] LABS: INR 3.1 (<1.2); Prothrombin Time 27.6 sec (9.0-12.0)
[2017-11-17 08:03] VITALS: BP 159/76; PULSE 74; RESP 16; TEMP 98.8
--- NOTE | 2017-11-17 08:25 | P.CRDCN ---
History of Present Illness Consult date: 11/17/17 History of present illness: This is a 82-year-old female with history of ischemic heart disease with previous stent placement and also bypass surgery, who was admitted to the hospital with chest pain. Patient claims that she is under a lot of stress because of her daughter's illness. She started having a feeling of tightness as if somebody is sitting felt in the low mid sternal area. The pain was relieved with sublingual nitroglycerin. Patient did not have any nausea, vomiting or sweating. Patient did not have similar symptoms before the bypass or stent placement. Her EKG showed sinus rhythm with nonspecific T-wave changes. Her cardiac enzymes 3 are negative. Patient has been stable since admission here. Apparently she had a recent nuclear stress test in cardiology office which was negative for ischemia. Patient feels that it is brought on by the stress and prefers to go home. I'm going to increase her activity. If she remains stable, patient could be discharged home to have follow-up with Dr. John early next week. 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 History of Any Multi-Drug Resistant Organisms: None Reported Past Surgical History: Adenoidectomy, Breast Surgery, Cholecystectomy, Coronary Bypass/CABG, Heart Catheterization With Stent, Hernia Repair, Tonsillectomy Additional Past Surgical History / Comment(s): Cardiac caths with stent to proximal LAD in 2003 and stent to mid LAD 2010, 03/09/12 CABG-3 vessel, umbilical hernia repair, bilateral breast bx-R breast had chrystall removed, L caratid endartectomy, UVPPP, colonoscopy, hemorrhoidectomy, bilateral cataract removal with lens implants. Past Anesthesia/Blood Transfusion Reactions: No Reported Reaction Additional Past Anesthesia/Blood Transfusion Reaction / Comment(s): never recieved any blood in past. Date of Last Stent Placement:: 2010 Past Psychological History: Anxiety, Depression Additional Psychological History / Comment(s): Pt states she is no longer on medication for depression-"I took myself off and am doing fine." She states she lives with her spouse,is independant. no medical equipment or outside services.. Smoking Status: Never smoker Past Alcohol Use History: None Reported Past Drug Use History: None Reported - Past Family History Father Family Medical History: Congestive Heart Failure (CHF), Coronary Artery Disease (CAD) Additional Family Medical History / Comment(s): Father at the age of 57yrs of CHF Mother Family Medical History: Cancer Additional Family Medical History / Comment(s): Mother had colon cancer. She lived to be 89 1/2yrs old. Brother(s) History Unknown: Yes Sister(s) Family Medical History: Cancer Daughter(s) History Unknown: Yes Additional Family Medical History / Comment(s): liver cancer Medications and Allergies Home Medications Medication Instructions Recorded Confirmed Type Levothyroxine Sodium [Synthroid] 50 mcg PO DAILY 07/31/14 11/16/17 History Nitroglycerin Sl Tabs [Nitrostat] 0.4 mg SUBLINGUAL Q5M PRN 08/09/15 11/16/17 History Atenolol [Tenormin] 50 mg PO HS 01/10/16 11/16/17 History Pantoprazole Sodium [Protonix] 40 mg PO DAILY 06/12/17 11/16/17 History Aspirin 81 mg PO DAILY chew 06/14/17 11/16/17 Rx Atorvastatin [Lipitor] 80 mg PO HS #30 tab 06/14/17 11/16/17 Rx amLODIPine [Norvasc] 5 mg PO HS #30 tab 06/14/17 11/16/17 Rx Hydrocodone/Acetaminophen [Ferriday 1 tab PO Q6HR PRN 11/16/17 11/16/17 History 5-325] Multivitamins, Thera [Multivitamin 1 tab PO DAILY 11/16/17 11/16/17 History (formulary)] Warfarin Sodium 2.5 mg PO SUMOWETHFR 11/16/17 11/16/17 History Warfarin Sodium 5 mg PO TUSA 11/16/17 11/16/17 History Allergies Allergy/AdvReac Type Severity Reaction Status Date / Time No Known Allergies Allergy Verified 11/16/17 17:12 Physical Exam Vitals: Vital Signs Temp Pulse Pulse Resp BP BP Pulse Ox 11/17/17 08:00 98.8 F 74 16 159/76 96 11/17/17 03:46 18 11/17/17 03:05 98.5 F 79 18 132/68 94 L 11/16/17 23:35 18 11/16/17 23:05 98.5 F 78 18 146/74 93 L 11/16/17 20:50 98.2 F 87 18 168/98 94 L 11/16/17 20:00 18 11/16/17 19:00 81 16 159/70 95 11/16/17 17:49 82 16 167/86 95 11/16/17 16:18 99.1 F 91 18 214/97 94 L Intake and Output 11/16/17 11/17/17 11/17/17 22:59 06:59 14:59 Intake Total 10 Balance 10 Intake: Amount of Fluid Infused ( 10 ml) Other: Voiding Method Toilet Toilet # Voids 2 Weight 77.111 kg GENERAL EXAM: Patient is alert and oriented and doesn't appear to be in any acute distress HEENT: Normocephalic. Normal reaction of pupils, equal size, normal range of extraocular motion. No erythema or exudates in the throat. NECK: No masses, no nuchal rigidity. CHEST: No chest wall deformity. LUNGS: Equal air entry with no crackles or wheeze. HEART: S1 and S2 normal with no audible mumurs or gallops. Regular rhythm, femorals equal on both sides.. ABDOMEN: No hepatosplenomegaly, normal bowel sounds, no guarding or rigidity. SKIN: No rashes CENTRAL NERVOUS SYSTEM: No focal deficits. EXTREMITIES: No cyanosis, clubbing or edema. Results 11/16/17 16:47 11/16/17 16:47 Cardiac Enzymes 11/16/17 11/16/17 11/16/17 Range/Units 16:47 16:47 23:01 AST 37 H (14-36) U/L CK-MB (CK-2) 0.6 0.5 (0.0-2.4) ng/mL Troponin I <0.012 <0.012 (0.000-0.034) ng/mL 11/17/17 Range/Units 04:40 AST (14-36) U/L CK-MB (CK-2) 0.5 (0.0-2.4) ng/mL Troponin I <0.012 (0.000-0.034) ng/mL Coagulation 11/16/17 11/17/17 Range/Units 16:47 07:21 PT 31.1 H 27.6 H (9.0-12.0) sec APTT 30.9 H (22.0-30.0) sec Lipids 11/17/17 Range/Units 04:40 Triglycerides 190 H (<150) mg/dL Cholesterol 131 (<200) mg/dL HDL Cholesterol 33 L (40-60) mg/dL CBC 11/16/17 Range/Units 16:47 WBC 8.7 (3.8-10.6) k/uL RBC 3.85 (3.80-5.40) m/uL Hgb 11.6 (11.4-16.0) gm/dL Hct 36.4 (34.0-46.0) % Plt Count 238 (150-450) k/uL Comprehensive Metabolic Panel 11/16/17 Range/Units 16:47 Sodium 141 (137-145) mmol/L Potassium 3.3 L (3.5-5.1) mmol/L Chloride 105 (98-107) mmol/L Carbon Dioxide 23 (22-30) mmol/L BUN 14 (7-17) mg/dL Creatinine 1.04 (0.52-1.04) mg/dL Glucose 128 H (74-99) mg/dL Calcium 7.6 L (8.4-10.2) mg/dL AST 37 H (14-36) U/L ALT 30 (9-52) U/L Alkaline Phosphatase 60 (38-126) U/L Total Protein 7.2 (6.3-8.2) g/dL Albumin 3.9 (3.5-5.0) g/dL Current Medications Generic Name Dose Route Start Last Admin Trade Name Freq PRN Reason Stop Dose Admin Amlodipine Besylate 5 mg 11/16/17 21:00 11/16/17 21:41 Norvasc PO 5 mg HS DEVANTE Administration Aspirin 325 mg 11/17/17 09:00 11/17/17 08:05 Aspirin PO Not Given DAILY DEVANTE Atenolol 50 mg 11/16/17 21:00 11/16/17 21:41 Tenormin PO 50 mg HS DEVANTE Administration Atorvastatin Calcium 80 mg 11/16/17 21:00 11/16/17 21:42 Lipitor PO Not Given HS DEVANTE Levothyroxine Sodium 50 mcg 11/17/17 06:30 11/17/17 08:05 Synthroid PO 50 mcg DAILY@0630 DEVANTE Administration Nitroglycerin 0.4 mg 11/16/17 18:55 Nitrostat SUBLINGUAL Q5M PRN Chest Pain Pantoprazole Sodium 40 mg 11/17/17 07:30 11/17/17 08:05 Protonix PO 40 mg [id number] DEVANTE Administration Intake and Output 11/16/17 11/17/17 11/17/17 22:59 06:59 14:59 Intake Total 10 Balance 10 Intake: Amount of Fluid Infused ( 10 ml) Other: Voiding Method Toilet Toilet # Voids 2 Weight 77.111 kg 11/16/17 16:47 11/16/17 16:47 EKG Interpretations (text) Sinus rhythm with mild nonspecific ST-T changes Assessment and Plan (1) History of coronary artery bypass graft Current Visit: Yes Status: Acute Code(s): Z95.1 - PRESENCE OF AORTOCORONARY BYPASS GRAFT SNOMED Code(s): 718046853 (2) Chest pain Current Visit: Yes Status: Acute Code(s): R07.9 - CHEST PAIN, UNSPECIFIED SNOMED Code(s): 93343418 (3) Hypertension Current Visit: No Status: Acute Code(s): I10 - ESSENTIAL (PRIMARY) HYPERTENSION SNOMED Code(s): 44047975 Plan: Patient had one bout of chest pain and discomfort which was relieved with nitroglycerin. EKG did not reveal any acute changes and cardiac enzymes are negative. Recent nuclear stress test was negative for ischemia, according to the patient. He patient remains stable, patient could be discharged home on medical therapy. Follow up with Dr. John as an outpatient
[2017-11-17] MEDS ORDERED: ISOSORBIDE MONONITRATE ER 15 MG TAB PO SCH (09:00)
[2017-11-17] MEDS ORDERED: ASPIRIN 325 MG TAB PO SCH (09:00)
[2017-11-17 18:05] LABS: Hepatitis A Antibody IgM Non-Reactive (Non-Reactive); Hepatitis B Core IgM Non-Reactive (Non-Reactive)
--- NOTE | 2017-11-17 20:10 | P.HPIM ---
History of Present Illness H&P Date: 11/16/17 Chief Complaint: chest pain This Is an 81-year-old pleasant lady patient of Jefferson Cook/Thelma Mcclendon, Dr. Guido. She also sees Dr. Burch from cardiologyS/Thelma Mcclendon from pulmonary medicine. She has an underlying history of CAD prior CABG 3 vessel disease in February 2011 cardiac stents, with last cardiac stent in 2010. chronic atrial fibrillation GERD hypertension hyperlipidemia previous PE and obstructive sleep apnea cardiac history is relevant for cardiac cath with stent to the proximal LAD 2003, stent to the mid LAD 2010, CABG G and 2012 3 vessel GI bleeding in January 2016, currently maintained on Coumadin secondary to pulmonary emboli 2009 for which he is on chronic anticoagulation monitored by Dr. Cook/Thelma Mcclendon She was admitted to emergency room Secondary to chest pain, She was with her daughter today when she expedrienced substernal rpessure after drinking a new protein drink, then immeiately complained of nasal stuffiness and tingly tongue , this is not persistent no dysphagia no otehr n eurologic compliants, , patient concerned on her heart condition, was subsequently seen in the ER. patient was chesst pain free unpon admission, no other complaints, she had a normal troponin, ekg did not show any acute change. SHe had been under alot of stress lately x 3 wks with daughter diagnosed to have primary lvier cancer, inoperable. she had a normal stress test this year under dr guido. Cardiology is to see her during this admission. Review of Systems Constitutional: Reports as per HPI, Denies anorexia, Denies chills, Denies chronic headaches, Denies chronic pain, Denies daytime sleepiness, Denies fatigue, Denies fever, Denies lethargy, Denies malaise, Denies night sweats, Denies poor appetite, Denies sweats, Denies weakness, Denies weight gain, Denies weight loss Ears, nose, mouth and throat: Reports as per HPI, Reports ant. neck pain, Denies bleeding gums, Denies dental pain, Denies dysphagia, Denies epistaxis, Denies headache, Denies hoarseness, Denies mouth pain, Denies nasal congestion, Denies nasal discharge, Denies neck fullness/pressure, Denies neck lump, Denies nose pain, Denies odynophagia, Denies post-nasal drip, Denies sinus pain, Denies sinus pressure, Denies swelling in mouth, Denies swelling in throat, Denies sore throat, Denies vertigo, Denies voice changes Cardiovascular: Reports as per HPI, Reports chest pain, Denies claudication, Denies decreased exercise tolerance, Denies dyspnea on exertion, Denies edema, Denies high blood pressure, Denies irregular heart beat, Denies leg edema, Denies lightheadedness, Denies orthopnea, Denies palpitations, Denies paroxysmal nocturnal dyspnea, Denies phlebitis, Denies rapid heart beat, Denies shortness of breath, Denies syncope Respiratory: Reports as per HPI, Denies congestion, Denies cough, Denies cough with sputum, Denies dyspnea, Denies excessive sputum, Denies hemoptysis, Denies home oxygen, Denies pain, Denies pain on inspiration, Denies pleurisy, Denies respiratory infections, Denies sleep apnea, Denies snoring, Denies wheezing Genitourinary: Reports as per HPI, Denies abnormal vaginal bleeding, Denies decreased libido, Denies difficulty conceiving, Denies difficulty voiding, Denies dysmenorrhea, Denies dyspareunia, Denies dysuria, Denies flank pain, Denies genital sores, Denies hematuria, Denies hot flashes, Denies incomplete emptying, Denies kidney stones, Denies menorrhagia, Denies mixed incontinence, Denies nocturia, Denies pelvic pain, Denies post void dribbling, Denies , Denies prolapse symptoms, Denies stress incontinence, Denies urge incontinence , Denies urgency, Denies urinary frequency, Denies vaginal discharge, Denies vaginal dryness, Denies vaginal itching, Denies vaginal odor Menstruation: Reports as per HPI, Reports postmenopausal Musculoskeletal: right: knee stiffness Integumentary: Reports as per HPI, Denies acne, Denies boils, Denies brittle nails, Denies change in hair/nails, Denies color changes, Denies darkening of skin, Denies depigmentation, Denies dryness, Denies foot/leg ulcers, Denies growths, Denies hirsutism, Denies lesions, Denies onychomycosis, Denies pruritus , Denies rash, Denies sores, Denies striae, Denies unusual bruising, Denies wounds Neurological: Reports as per HPI, Denies aphasia, Denies ataxia, Denies balance difficulties, Denies burning pain, Denies change in mentation, Denies change in smell/taste, Denies change in speech, Denies confusion, Denies convulsions, Denies double vision, Denies gait dysfunction, Denies head injury, Denies headaches, Denies hearing difficulties, Denies lack of coordination, Denies loss of vision, Denies memory loss, Denies migraines, Denies motor disturbance, Denies numbness, Denies paralysis, Denies paresthesias, Denies seizures, Denies sensory deficit, Denies spasticity, Denies syncope, Denies tic, Denies tingling , Denies transient paralysis, Denies tremors, Denies vertigo, Denies weakness, Denies visual changes Endocrine: Reports as per HPI, Denies cold intolerance, Denies deepening of the voice, Denies excessive sweating, Denies excessive thirst, Denies fatigue, Denies flushing, Denies heat intolerance, Denies high blood sugars, Denies increase in ring/shoe/hat size, Denies low blood sugars, Denies nocturia, Denies palpitations, Denies polydipsia, Denies polyphagia, Denies polyuria, Denies proptosis, Denies recent glucocorticoid use, Denies thyroid mass, Denies weight change Hematologic/Lymphatic: Reports as per HPI Allergic/Immunologic: Reports as per HPI Past Medical History Past Medical History: Atrial Fibrillation, Chest Pain / Angina, Deep Vein Thrombosis (DVT), GERD/Reflux, Hyperlipidemia, Hypertension, Liver Disease, Pulmonary Embolus (PE), Sleep Apnea/CPAP/BIPAP, Thyroid Disorder, Vascular Disorder Additional Past Medical History / Comment(s): KRISTY with CPAP use, hypothyroid, PE (pt cannot recall laterality), R arm DVT, post operative afib, 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 History of Any Multi-Drug Resistant Organisms: None Reported Past Surgical History: Adenoidectomy, Breast Surgery, Cholecystectomy, Coronary Bypass/CABG, Heart Catheterization With Stent, Hernia Repair, Tonsillectomy Additional Past Surgical History / Comment(s): Cardiac caths with stent to proximal LAD in 2003 and stent to mid LAD 2010, 03/09/12 CABG-3 vessel, umbilical hernia repair, bilateral breast bx-R breast had chrystall removed, L caratid endartectomy, UVPPP, colonoscopy, hemorrhoidectomy, bilateral cataract removal with lens implants. Past Anesthesia/Blood Transfusion Reactions: No Reported Reaction Additional Past Anesthesia/Blood Transfusion Reaction / Comment(s): never recieved any blood in past. Date of Last Stent Placement:: 2010 Past Psychological History: Anxiety, Depression Smoking Status: Never smoker Past Alcohol Use History: None Reported Past Drug Use History: None Reported - Past Family History Father Family Medical History: Congestive Heart Failure (CHF), Coronary Artery Disease (CAD) Additional Family Medical History / Comment(s): Father at the age of 57yrs of CHF Mother Family Medical History: Cancer Additional Family Medical History / Comment(s): Mother had colon cancer. She lived to be 89 1/2yrs old. Brother(s) History Unknown: Yes Sister(s) Family Medical History: Cancer Daughter(s) History Unknown: Yes Medications and Allergies Home Medications Medication Instructions Recorded Confirmed Type Levothyroxine Sodium [Synthroid] 50 mcg PO DAILY 07/31/14 11/16/17 History Nitroglycerin Sl Tabs [Nitrostat] 0.4 mg SUBLINGUAL Q5M PRN 08/09/15 11/16/17 History Atenolol [Tenormin] 50 mg PO HS 01/10/16 11/16/17 History Pantoprazole Sodium [Protonix] 40 mg PO DAILY 06/12/17 11/16/17 History Aspirin 81 mg PO DAILY chew 06/14/17 11/16/17 Rx Atorvastatin [Lipitor] 80 mg PO HS #30 tab 06/14/17 11/16/17 Rx amLODIPine [Norvasc] 5 mg PO HS #30 tab 06/14/17 11/16/17 Rx Hydrocodone/Acetaminophen [Nelson 1 tab PO Q6HR PRN 11/16/17 11/16/17 History 5-325] Multivitamins, Thera [Multivitamin 1 tab PO DAILY 11/16/17 11/16/17 History (formulary)] Warfarin Sodium 2.5 mg PO SUMOWETHFR 11/16/17 11/16/17 History Warfarin Sodium 5 mg PO TUSA 11/16/17 11/16/17 History Escitalopram [Lexapro] 10 mg PO DAILY #30 tablet 11/17/17 Rx Isosorbide Mononitrate ER [Imdur] 15 mg PO DAILY #30 dose 11/17/17 Rx Nitroglycerin Sl Tabs [Nitrostat] 0.4 mg SUBLINGUAL Q5M PRN #25 tab 11/17/17 Rx Allergies Allergy/AdvReac Type Severity Reaction Status Date / Time No Known Allergies Allergy Verified 11/16/17 17:12 Physical Exam Vitals: Vital Signs Temp Pulse Resp BP Pulse Ox 11/16/17 19:00 81 16 159/70 95 11/16/17 17:49 82 16 167/86 95 11/16/17 16:18 99.1 F 91 18 214/97 94 L Intake and Output 11/16/17 11/16/17 11/16/17 06:59 14:59 22:59 Other: Weight 77.111 kg - Constitutional General appearance: cooperative, no acute distress, obese - EENT Eyes: EOMI, dentition normal, normal appearance ENT: NA/AT, normal oropharynx - Cardiovascular Rhythm: regular Heart sounds: normal: S1 Abnormal Heart Sounds: systolic murmur, no diastolic murmur, no rub, no S3 Gallop, no S4 Gallop, no click, no other - Integumentary Integumentary: decreased turgor, normal - Musculoskeletal Musculoskeletal: gait normal, strength equal bilaterally - Psychiatric Psychiatric: A&O x's 3, appropriate affect, intact judgment & insight Results CBC & Chem 7: 11/16/17 16:47 11/16/17 16:47 Labs: Abnormal Lab Results - Last 24 Hours (Table) 11/16/17 11/16/17 11/16/17 Range/Units 16:47 16:47 16:47 RDW 15.9 H (11.5-15.5) % PT 31.1 H (9.0-12.0) sec INR 3.5 H (<1.2) APTT 30.9 H (22.0-30.0) sec Potassium 3.3 L (3.5-5.1) mmol/L Glucose 128 H (74-99) mg/dL Calcium 7.6 L (8.4-10.2) mg/dL Total Bilirubin 1.9 H (0.2-1.3) mg/dL AST 37 H (14-36) U/L Laboratory Results WBC 8.7 k/uL (3.8-10.6) 11/16/17 16:47 RBC 3.85 m/uL (3.80-5.40) 11/16/17 16:47 Hgb 11.6 gm/dL (11.4-16.0) 11/16/17 16:47 Hct 36.4 % (34.0-46.0) 11/16/17 16:47 MCV 94.4 fL (80.0-100.0) 11/16/17 16:47 MCH 30.2 pg (25.0-35.0) 11/16/17 16:47 MCHC 32.0 g/dL (31.0-37.0) 11/16/17 16:47 RDW 15.9 % (11.5-15.5) H 11/16/17 16:47 Plt Count 238 k/uL (150-450) 11/16/17 16:47 Neutrophils % 61 % 11/16/17 16:47 Lymphocytes % 31 % 11/16/17 16:47 Monocytes % 5 % 11/16/17 16:47 Eosinophils % 2 % 11/16/17 16:47 Basophils % 0 % 11/16/17 16:47 Neutrophils # 5.3 k/uL (1.3-7.7) 11/16/17 16:47 Lymphocytes # 2.7 k/uL (1.0-4.8) 11/16/17 16:47 Monocytes # 0.5 k/uL (0-1.0) 11/16/17 16:47 Eosinophils # 0.2 k/uL (0-0.7) 11/16/17 16:47 Basophils # 0.0 k/uL (0-0.2) 11/16/17 16:47 PT 31.1 sec (9.0-12.0) H 11/16/17 16:47 INR 3.5 (<1.2) H 11/16/17 16:47 APTT 30.9 sec (22.0-30.0) H 11/16/17 16:47 Sodium 141 mmol/L (137-145) 11/16/17 16:47 Potassium 3.3 mmol/L (3.5-5.1) L 11/16/17 16:47 Chloride 105 mmol/L (98-107) 11/16/17 16:47 Carbon Dioxide 23 mmol/L (22-30) 11/16/17 16:47 Anion Gap 13 mmol/L 11/16/17 16:47 BUN 14 mg/dL (7-17) 11/16/17 16:47 Creatinine 1.04 mg/dL (0.52-1.04) 11/16/17 16:47 Est GFR (CKD-EPI)AfAm 57 (>60 ml/min/1.73 sqM) 11/16/17 16:47 Est GFR (CKD-EPI)NonAf 50 (>60 ml/min/1.73 sqM) 11/16/17 16:47 Glucose 128 mg/dL (74-99) H 11/16/17 16:47 Calcium 7.6 mg/dL (8.4-10.2) L 11/16/17 16:47 Total Bilirubin 1.9 mg/dL (0.2-1.3) H 11/16/17 16:47 AST 37 U/L (14-36) H 11/16/17 16:47 ALT 30 U/L (9-52) 11/16/17 16:47 Alkaline Phosphatase 60 U/L (38-126) 11/16/17 16:47 Total Creatine Kinase 112 U/L (30-135) 11/16/17 16:47 CK-MB (CK-2) 0.6 ng/mL (0.0-2.4) 11/16/17 16:47 CK-MB (CK-2) Rel Index 0.5 11/16/17 16:47 Troponin I <0.012 ng/mL (0.000-0.034) 11/16/17 16:47 Total Protein 7.2 g/dL (6.3-8.2) 11/16/17 16:47 Albumin 3.9 g/dL (3.5-5.0) 11/16/17 16:47 Assessment and Plan Plan: 1. Atypical chest pain, with known hx of CAD, troponins to be monitored and will be seen by cardiology. she had a recent stress test that was negative thru a lexiscan stress, She has had been under alot of emotional stress and will be addressed. Cardiology will see her with adustment to medications. 2. allergic reaction with nasal stuffiness and dysphagia related to protein drins. resolved symptoms 3. CAD with CABG 3 vessel disease in 2012, history of cardiac stents with last one placed in 2010 graft 4. history DVT and pulmonary emboli for which she requires lifelong anticoagulation stable she is on Coumadin and INRs therpaeutic. dr NATALIIA mcclendon following op inr 5.. History of pulmonary emboli for which she is chronically anticoagulated with Coumadin, S/P Bharat monitoring INRs as outpatient 6 Proximal atrial fibrillation currently in sinus rhythm on long-term anticoagulation with Coumadin 6. Hyperlipidemia on Lipitor 40 7. Hypothyroidism on Synthroid 50 8. Obstructive sleep apnea on CPAP 9. History of PAD currently asymptomatic DVT prophylaxis on maintenance Coumadin GI prophylaxis on Pepcid
--- NOTE | 2017-11-17 20:14 | P.DS ---
Providers Date of admission: 11/16/17 18:55 Attending physician: Mia Bailey Consults: 11/16/17 18:55 Consult Physician Urgent Consulting Provider: Lamine Mills Consult Reason/Comments: chest pain Do you want consulting provider notified?: Yes Primary care physician: [facility] Course: This Is an 81-year-old pleasant lady patient of Jefferson Mcclendon, Dr. Guido. She also sees Dr. Burch from cardiologyS/Thelma Mcclendon from pulmonary medicine. She has an underlying history of CAD prior CABG 3 vessel disease in February 2011 cardiac stents, with last cardiac stent in 2010. chronic atrial fibrillation GERD hypertension hyperlipidemia previous PE and obstructive sleep apnea cardiac history is relevant for cardiac cath with stent to the proximal LAD 2003, stent to the mid LAD 2010, CABG G and 2012 3 vessel GI bleeding in January 2016, currently maintained on Coumadin secondary to pulmonary emboli 2009 for which he is on chronic anticoagulation monitored by Dr. Nicolás Mcclendon She was admitted to emergency room Secondary to chest pain, She was with her daughter today when she expedrienced substernal rpessure after drinking a new protein drink, then immeiately complained of nasal stuffiness and tingly tongue , this is not persistent no dysphagia no otehr n eurologic compliants, , patient concerned on her heart condition, was subsequently seen in the ER. patient was chesst pain free unpon admission, no other complaints, she had a normal troponin, ekg did not show any acute change. SHe had been under alot of stress lately x 3 wks with daughter diagnosed to have primary lvier cancer, inoperable. she had a normal stress test this year under dr guido. Cardiology is to see her during this admission. 1. chest pain, with known hx of CAD, unstable angina is under differential. ruled out MId will be seen by cardiology. she had a recent stress test that was negative thru a lexiscan stress, She has had been under alot of emotional stress a cardiology recommeded long acting nitrates on discharge 2. allergic reaction with nasal stuffiness and dysphagia related to protein drink. resolved symptoms 3. Adjustment disorder severe, will start on lexapro 10 mg daily short term expected 6 mo threatment. 3. CAD with CABG 3 vessel disease in 2012, history of cardiac stents with last one placed in 2010 graft 4. history DVT and pulmonary emboli for which she requires lifelong anticoagulation stable she is on Coumadin and INRs therpaeutic. dr NATALIIA mcclendon following op inr 5.. History of pulmonary emboli for which she is chronically anticoagulated with Coumadin, S/P Bharat monitoring INRs as outpatient 6 Proximal atrial fibrillation currently in sinus rhythm on long-term anticoagulation with Coumadin 6. Hyperlipidemia on Lipitor 40 7. Hypothyroidism on Synthroid 50 8. Obstructive sleep apnea on CPAP 9. History of PAD currently asymptomatic DVT prophylaxis on maintenance Coumadin GI prophylaxis on Pepcid discharge condition stable. Discharge Medication List Levothyroxine Sodium [Synthroid] 50 mcg PO DAILY 07/31/14 [History] Nitroglycerin Sl Tabs [Nitrostat] 0.4 mg SUBLINGUAL Q5M PRN 08/09/15 [History] Atenolol [Tenormin] 50 mg PO HS 01/10/16 [History] Pantoprazole Sodium [Protonix] 40 mg PO DAILY 06/12/17 [History] Aspirin 81 mg PO DAILY chew 06/14/17 [Rx] Atorvastatin [Lipitor] 80 mg PO HS #30 tab 06/14/17 [Rx] amLODIPine [Norvasc] 5 mg PO HS #30 tab 06/14/17 [Rx] Hydrocodone/Acetaminophen [Bowlegs 5-325] 1 tab PO Q6HR PRN 11/16/17 [History] Multivitamins, Thera [Multivitamin (formulary)] 1 tab PO DAILY 11/16/17 [History ] Warfarin Sodium 2.5 mg PO SUMOWETHFR 11/16/17 [History] Warfarin Sodium 5 mg PO TUSA 11/16/17 [History] Escitalopram [Lexapro] 10 mg PO DAILY #30 tablet 11/17/17 [Rx] Isosorbide Mononitrate ER [Imdur] 15 mg PO DAILY #30 dose 11/17/17 [Rx] Nitroglycerin Sl Tabs [Nitrostat] 0.4 mg SUBLINGUAL Q5M PRN #25 tab 11/17/17 [Rx ] Patient Condition at Discharge: Good Plan - Discharge Summary New Discharge Prescriptions: New Escitalopram [Lexapro] 10 mg PO DAILY #30 tablet Isosorbide Mononitrate ER [Imdur] 15 mg PO DAILY #30 dose Nitroglycerin Sl Tabs [Nitrostat] 0.4 mg SUBLINGUAL Q5M PRN #25 tab PRN Reason: Chest Pain Continue Levothyroxine Sodium [Synthroid] 50 mcg PO DAILY Nitroglycerin Sl Tabs [Nitrostat] 0.4 mg SUBLINGUAL Q5M PRN PRN Reason: Chest Pain Atenolol [Tenormin] 50 mg PO HS Pantoprazole Sodium [Protonix] 40 mg PO DAILY amLODIPine [Norvasc] 5 mg PO HS #30 tab Aspirin 81 mg PO DAILY chew Atorvastatin [Lipitor] 80 mg PO HS #30 tab Hydrocodone/Acetaminophen [Bowlegs 5-325] 1 tab PO Q6HR PRN PRN Reason: Pain Warfarin Sodium 5 mg PO TUSA Warfarin Sodium 2.5 mg PO SUMOWE Multivitamins, Thera [Multivitamin (formulary)] 1 tab PO DAILY Discharge Medication List Levothyroxine Sodium [Synthroid] 50 mcg PO DAILY 07/31/14 [History] Nitroglycerin Sl Tabs [Nitrostat] 0.4 mg SUBLINGUAL Q5M PRN 08/09/15 [History] Atenolol [Tenormin] 50 mg PO HS 01/10/16 [History] Pantoprazole Sodium [Protonix] 40 mg PO DAILY 06/12/17 [History] Aspirin 81 mg PO DAILY chew 06/14/17 [Rx] Atorvastatin [Lipitor] 80 mg PO HS #30 tab 06/14/17 [Rx] amLODIPine [Norvasc] 5 mg PO HS #30 tab 06/14/17 [Rx] Hydrocodone/Acetaminophen [Bowlegs 5-325] 1 tab PO Q6HR PRN 11/16/17 [History] Multivitamins, Thera [Multivitamin (formulary)] 1 tab PO DAILY 11/16/17 [History ] Warfarin Sodium 2.5 mg PO SUMOWETHFR 11/16/17 [History] Warfarin Sodium 5 mg PO TUSA 11/16/17 [History] Escitalopram [Lexapro] 10 mg PO DAILY #30 tablet 11/17/17 [Rx] Isosorbide Mononitrate ER [Imdur] 15 mg PO DAILY #30 dose 11/17/17 [Rx] Nitroglycerin Sl Tabs [Nitrostat] 0.4 mg SUBLINGUAL Q5M PRN #25 tab 11/17/17 [Rx ] Follow up Appointment(s)/Referral(s): Jean-Claude Guido MD [STAFF PHYSICIAN] - 12/04/17 3:00 pm Jad Paulino DO [Primary Care Provider] - 1-2 days Patient Instructions/Handouts: Chest Pain (DC) Discharge Disposition: HOME SELF-CARE
== END 2017-11-17 11:43 | disposition home or self-care (01) ==
LOC: EC 16:17 → 3SUR 18:55
PROVIDERS: ADMIT Family Medicine; ATTEND Family Medicine
DX: I25.110 Atherosclerotic heart disease of native coronary artery with unstable angina pectoris (principal); I10 Essential (primary) hypertension; Z95.1 Presence of aortocoronary bypass graft; F32.9 Major depressive disorder, single episode, unspecified; F43.22 Adjustment disorder with anxiety; K21.9 Gastro-esophageal reflux disease without esophagitis; I48.2 Chronic atrial fibrillation; E78.5 Hyperlipidemia, unspecified; G47.33 Obstructive sleep apnea (adult) (pediatric); E03.9 Hypothyroidism, unspecified; T78.1XXA Other adverse food reactions, not elsewhere classified, initial encounter; R13.10 Dysphagia, unspecified; R09.81 Nasal congestion; Z79.890 Hormone replacement therapy; Z79.899 Other long term (current) drug therapy; Z79.82 Long term (current) use of aspirin; Z90.49 Acquired absence of other specified parts of digestive tract; Z95.5 Presence of coronary angioplasty implant and graft; Z98.42 Cataract extraction status, left eye; Z98.41 Cataract extraction status, right eye; Z96.1 Presence of intraocular lens; Z82.49 Family history of ischemic heart disease and other diseases of the circulatory system; Z80.0 Family history of malignant neoplasm of digestive organs; Z79.01 Long term (current) use of anticoagulants; Z86.718 Personal history of other venous thrombosis and embolism; Z86.711 Personal history of pulmonary embolism
CPT/HCPCS: 36415; 71046; 80053; 80061; 80074; 82550; 82553; 84484; 85025; 85610; 85730; 93005; 99285

== ENCOUNTER → 2017-12-19 | Outpatient (CLI) | payer MEDICARE, BC ==
--- NOTE | 2017-12-19 16:19 | XR ---
Left wrist HISTORY: Left wrist pain 4 views of the left wrist correlated to left hand 10/24/2013 Remodeling at the radiocarpal joint is again noted, bone mineralization is reduced. Some distortion o f the distal metaphyseal left radius is compatible with fracture of indeterminate age, findings felt likely to represent healed fracture, slight dorsal angulation. Ulnar styloid also irregular. Ossific density dorsal to the radiocarpal joint appears well-corticated and is felt likely to be chronic. Art hropathy noted carpometacarpal joint of the first digit as on prior. Soft tissue swelling suspected a bout the wrist. IMPRESSION: Correlate for history of fracture to the distal radius and ulnar styloid. There is underl lucinda arthropathy. Additional findings above.
== END | disposition home or self-care (01) ==
LOC: RADXRMAIN 14:50
PROVIDERS: ATTEND Family Medicine
DX: M19.032 Primary osteoarthritis, left wrist (principal)

== ENCOUNTER 2018-06-04 20:19 | Inpatient (IN) | payer MEDICARE, BC ==
--- NOTE | 2018-06-04 20:50 | ED ---
General Adult HPI - General Chief complaint: Headache Stated complaint: Pain in head, vomiting Time Seen by Provider: 06/04/18 20:42 Source: patient, family Mode of arrival: wheelchair Limitations: no limitations - History of Present Illness Initial comments: Dictation was produced using [employer] dictation software. please excuse any gra mmatical, word or spelling errors. Chief Complaint: 82-year-old female multiple comorbidities on Coumadin therapy for blood clot prophylaxis presents with headache since 6 PM. History of Present Illness: 82-year-old female she presents with headache since 6 PM. Patient has headaches however this headache is different from usual per she states it's around the left parietal and left retro-orbital region. She states that it started in nature. States that her symptoms started around 6 PM. Patient had an episode yesterday that resolved spontaneously. Patient is on Coumadin for PE prophylaxis. She also states of atrial fibrillation. Patient has any focal neurologic deficits. Denies any vision loss. Denies any exacerbating or mitigating factors. States his headache is severe causing her to have nausea and vomiting. That her vomiting is not bilious nonbloody. The ROS documented in this emergency department record has been reviewed and confirmed by me. Those systems with pertinent positive or negative responses have been documented in the HPI. All other systems are other negative and/or noncontributory. PHYSICAL EXAM: General Impression: Alert and oriented x3, mild distress secondary to pain HEENT: Normocephalic atraumatic, extra-ocular movements intact, pupils equal and reactive to light bilaterally, mucous membranes moist. Cardiovascular: Heart regular rate and rhythm, S1&S2 audible, no murmurs, rubs or gallops Chest: Lungs clear to auscultation bilaterally, no rhonchi, no wheeze, no rales Abdomen: Bowel sounds present, abdomen soft, non-tender, non-distended, no organomegaly Musculoskeletal: Pulses present and equal in all extremities, no peripheral edema Motor: no focal deficits noted Neurological: CN II-XII grossly intact, no focal motor or sensory deficits noted ataxia, no meningismus, negative Brudzinski, negative Kernig's Skin: Intact with no visualized rashes Psych: Normal affect and mood ED course: 82-year-old female presents with severe headache starting at 6 PM. Signs upon arrival shows blood pressure 217/92, rest of vital signs within acceptable limits. Patient is coherent and has no focal neurologic deficit. There is concern for acute intracranial processes. Patient sent to CT for imaging studies.There is concern for intracranial process. Computed tomography scan was obtained showing no acute processes. Because patient's headache started within [address] unremarkable for subarachnoid bleeding. Patient given intravenous fluids of headache cocktail with improvement of symptoms. Laboratory evaluation obtained. CBC unremarkable. Coag panel is therapeutic. Patient has a critical low magnesium of 0.8. Cardiac enzymes negative. Given patient's long QT slightly secondary hypomagnesemia. Patient's magnesium replaced. Patient admitted to cardiac telemetry for prolonged QT and critically low hypomagnesemia. Patient be placed on cardiac telemetry. Patient's headache likely secondary to dehydration. No neuro deficits. Vision understandable and agreeable to disposition. EKG interpretation: Ventricular rate 82, sinus rhythm with first-degree AV block, FL interval 2:30, QRS 142, QTc 537. Her to EKG from December 1918changes.. Overall, this EKG is unremarkable - Related Data Home Medications Medication Instructions Recorded Confirmed Atenolol [Tenormin] 50 mg PO HS 01/10/16 06/04/18 Pantoprazole Sodium [Protonix] 40 mg PO DAILY 06/12/17 06/04/18 Warfarin Sodium 2.5 mg PO SUMOTUWETHFR 11/16/17 06/04/18 ALPRAZolam [Xanax] 1 mg PO HS PRN 06/04/18 06/04/18 Atorvastatin [Lipitor] 40 mg PO HS 06/04/18 06/04/18 Levothyroxine Sodium [Synthroid] 25 mcg PO DAILY 06/04/18 06/04/18 Warfarin [Coumadin] 5 mg PO SA 06/04/18 06/04/18 Allergies Allergy/AdvReac Type Severity Reaction Status Date / Time No Known Allergies Allergy Verified 06/04/18 21:34 Review of Systems ROS Statement: Those systems with pertinent positive or pertinent negative responses have been documented in the HPI. ROS Other: All systems not noted in ROS Statement are negative. 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 History of Any Multi-Drug Resistant Organisms: None Reported Past Surgical History: Adenoidectomy, Breast Surgery, Cholecystectomy, Coronary Bypass/CABG, Heart Catheterization With Stent, Hernia Repair, Tonsillectomy Additional Past Surgical History / Comment(s): Cardiac caths with stent to proximal LAD in 2003 and stent to mid LAD 2010, 03/09/12 CABG-3 vessel, umbilical hernia repair, bilateral breast bx-R breast had chrystall removed, L caratid endartectomy, UVPPP, colonoscopy, hemorrhoidectomy, bilateral cataract removal with lens implants. Past Anesthesia/Blood Transfusion Reactions: No Reported Reaction Additional Past Anesthesia/Blood Transfusion Reaction / Comment(s): never recieved any blood in past. Date of Last Stent Placement:: 2010 Past Psychological History: Anxiety, Depression Smoking Status: Never smoker Past Alcohol Use History: None Reported Past Drug Use History: None Reported - Past Family History Father Family Medical History: Congestive Heart Failure (CHF), Coronary Artery Disease (CAD) Additional Family Medical History / Comment(s): Father at the age of 57yrs of CHF Mother Family Medical History: Cancer Additional Family Medical History / Comment(s): Mother had colon cancer. She lived to be 89 1/2yrs old. Brother(s) History Unknown: Yes Sister(s) Family Medical History: Cancer Daughter(s) History Unknown: Yes Additional Family Medical History / Comment(s): liver cancer General Exam Limitations: no limitations Course Vital Signs 06/04/18 20:36 Temperature 98.8 F Pulse Rate 85 Respiratory 20 Rate Blood Pressure 207/92 O2 Sat by Pulse 95 Oximetry Medical Decision Making - Lab Data Result diagrams: 06/04/18 20:54 06/04/18 20:54 Lab Results 06/04/18 06/04/18 06/04/18 Range/Units 20:54 20:54 20:54 WBC 8.1 (3.8-10.6) k/uL RBC 4.13 (3.80-5.40) m/uL Hgb 12.3 (11.4-16.0) gm/dL Hct 38.3 (34.0-46.0) % MCV 92.9 (80.0-100.0) fL MCH 29.9 (25.0-35.0) pg MCHC 32.2 (31.0-37.0) g/dL RDW 14.8 (11.5-15.5) % Plt Count 237 (150-450) k/uL Neutrophils % 59 % Lymphocytes % 30 % Monocytes % 5 % Eosinophils % 4 % Basophils % 0 % Neutrophils # 4.8 (1.3-7.7) k/uL Lymphocytes # 2.4 (1.0-4.8) k/uL Monocytes # 0.4 (0-1.0) k/uL Eosinophils # 0.3 (0-0.7) k/uL Basophils # 0.0 (0-0.2) k/uL PT 20.5 H (9.0-12.0) sec INR 2.1 H (<1.2) Sodium 141 (137-145) mmol/L Potassium 3.9 (3.5-5.1) mmol/L Chloride 101 (98-107) mmol/L Carbon Dioxide 28 (22-30) mmol/L Anion Gap 12 mmol/L BUN 16 (7-17) mg/dL Creatinine 1.21 H (0.52-1.04) mg/dL Est GFR (CKD-EPI)AfAm 48 (>60 ml/min/1.73 sqM) Est GFR (CKD-EPI)NonAf 41 (>60 ml/min/1.73 sqM) Glucose 141 H (74-99) mg/dL Calcium 7.6 L (8.4-10.2) mg/dL Magnesium (1.6-2.3) mg/dL Total Bilirubin 1.7 H (0.2-1.3) mg/dL AST 40 H (14-36) U/L ALT 23 (9-52) U/L Alkaline Phosphatase 61 (38-126) U/L Troponin I (0.000-0.034) ng/mL Total Protein 7.8 (6.3-8.2) g/dL Albumin 4.2 (3.5-5.0) g/dL 06/04/18 06/04/18 Range/Units 20:54 20:54 WBC (3.8-10.6) k/uL RBC (3.80-5.40) m/uL Hgb (11.4-16.0) gm/dL Hct (34.0-46.0) % MCV (80.0-100.0) fL MCH (25.0-35.0) pg MCHC (31.0-37.0) g/dL RDW (11.5-15.5) % Plt Count (150-450) k/uL Neutrophils % % Lymphocytes % % Monocytes % % Eosinophils % % Basophils % % Neutrophils # (1.3-7.7) k/uL Lymphocytes # (1.0-4.8) k/uL Monocytes # (0-1.0) k/uL Eosinophils # (0-0.7) k/uL Basophils # (0-0.2) k/uL PT (9.0-12.0) sec INR (<1.2) Sodium (137-145) mmol/L Potassium (3.5-5.1) mmol/L Chloride (98-107) mmol/L Carbon Dioxide (22-30) mmol/L Anion Gap mmol/L BUN (7-17) mg/dL Creatinine (0.52-1.04) mg/dL Est GFR (CKD-EPI)AfAm (>60 ml/min/1.73 sqM) Est GFR (CKD-EPI)NonAf (>60 ml/min/1.73 sqM) Glucose (74-99) mg/dL Calcium (8.4-10.2) mg/dL Magnesium 0.8 L* (1.6-2.3) mg/dL Total Bilirubin (0.2-1.3) mg/dL AST (14-36) U/L ALT (9-52) U/L Alkaline Phosphatase (38-126) U/L Troponin I <0.012 (0.000-0.034) ng/mL Total Protein (6.3-8.2) g/dL Albumin (3.5-5.0) g/dL Disposition Clinical Impression: Prolonged QT interval, Hypomagnesemia Disposition: ADMITTED IP TO THIS [facility] Condition: Fair Referrals: Jad Paulino DO [Primary Care Provider] - 1-2 days Decision Time: 22:10
[2018-06-04 21:01] LABS: Basophils % (A) 0 %; Eosinophils # (A) 0.3 k/uL (0-0.7); Eosinophils % (A) 4 %; HCT 38.3 % (34.0-46.0); HGB 12.3 gm/dL (11.4-16.0); Lymphocytes # (A) 2.4 k/uL (1.0-4.8); Lymphocytes % (A) 30 %; MCH 29.9 pg (25.0-35.0); MCHC 32.2 g/dL (31.0-37.0); MCV 92.9 fL (80.0-100.0); Mean Platelet Volume 7.3; Monocytes # (A) 0.4 k/uL (0-1.0); Monocytes % (A) 5 %; Neutrophils # (A) 4.8 k/uL (1.3-7.7); Neutrophils % (A) 59 %; Platelet Count 237 k/uL (150-450); RBC 4.13 m/uL (3.80-5.40); RDW 14.8 % (11.5-15.5); WBC 8.1 k/uL (3.8-10.6)
[2018-06-04 21:12] LABS: INR 2.1 (<1.2); Prothrombin Time 20.5 sec (9.0-12.0)
[2018-06-04 21:14] LABS: Albumin 4.2 g/dL (3.5-5.0); Calcium 7.6 mg/dL (8.4-10.2); Potassium 3.9 mmol/L (3.5-5.1); Total Bilirubin 1.7 mg/dL (0.2-1.3); Total Protein 7.8 g/dL (6.3-8.2)
[2018-06-04] MEDS ORDERED: SODIUM CHLORIDE 0.9% 1,000 ML IV STA (21:19)
[2018-06-04] MEDS ORDERED: ACETAMINOPHEN TAB 500 MG TAB PO STA (21:19)
[2018-06-04] MEDS ORDERED: diphenhydrAMINE 50 MG/ML 1 ML VIAL IVP STA (21:27)
[2018-06-04] MEDS ORDERED: ONDANSETRON 4 MG/2 ML VIAL IVP STA (21:27)
--- NOTE | 2018-06-04 21:27 | CT ---
EXAMINATION: CT brain wo con DATE AND TIME: 06/04/2018 9:11 PM CLINICAL INDICATION: PHH; Pain TECHNIQUE: Standard departmental protocol.; 1123.4; COMPARISON: 01/04/2018 FINDINGS: The calvarium is intact. There is no intracranial hemorrhage. There is no intracranial mass or mass effect. No definite new intra-axial or extra-axial attenuation defect. The paranasal sinuses, middle ear cavities, and mastoid sinus air cells are clear. The orbits are unremarkable. IMPRESSION: NO ACUTE PROCESS.
[2018-06-04] MEDS ORDERED: ONDANSETRON 4 MG/2 ML VIAL IVP PRN (22:05)
[2018-06-04] MEDS ORDERED: NALOXONE 0.4 MG/ML 1 ML VIAL IV PRN (22:05)
[2018-06-04] MEDS ORDERED: MORPHINE SULFATE 4 MG/ML SYRINGE IV PRN (22:05)
[2018-06-04] MEDS ORDERED: ACETAMINOPHEN TAB 325 MG TAB PO PRN (22:05)
[2018-06-04] MEDS: MAGNESIUM SULFATE-D5W PMX 1 GM in DEXTROSE/WATER 1 100ML.BAG IVPB SCH ×2 (22:41→23:49)
[2018-06-04] MEDS: SODIUM CHLORIDE 0.9% 1,000 ML IV SCH (22:50)
[2018-06-04] MEDS ORDERED: ATENOLOL 50 MG TAB PO STA (23:38)
[2018-06-05] MEDS: ALPRAZolam 1 MG TAB PO PRN ×2 (02:49→21:18)
[2018-06-05] MEDS: SODIUM CHLORIDE 0.9% 1,000 ML IV SCH ×2 (06:49→14:14)
[2018-06-05] MEDS: LEVOTHYROXINE 25 MCG TAB PO SCH (06:50)
[2018-06-05] MEDS: PANTOPRAZOLE 40 MG/10 ML VIAL IV SCH (07:46)
[2018-06-05] MEDS ORDERED: Magnesium Replacement Protocol 1 EACH MISC MISCELLANE PRN (09:29)
[2018-06-05] MEDS: MAGNESIUM SULFATE-D5W PMX 1 GM in DEXTROSE/WATER 1 100ML.BAG IVPB SCH ×3 (10:33→14:51)
--- NOTE | 2018-06-05 13:44 | P.CRDCN ---
History of Present Illness History of present illness: This is Dr. Rosado dictating a consult on this patient The patient was interviewed and examined by me IMPRESSION / ASSESSMENT: Severe hypomagnesemia Prolonged corrected QT interval but the absolute QT interval is about 440-460 ms Recurrent diarrhea for a long time, at least 2 watery stools per day Hypertension Dyslipidemia Left bundle branch block pattern and twelve-lead ECG Mild prolonged MI interval PLAN: IV magnesium, oral Aldactone, oral magnesium GI workup At this time the patient has no cardiac complaints No arrhythmias noted Workup for headache CT of the brain is normal Outpatient cardiac workup HPI Patient presented with headaches She was found to have a severely low magnesium of 0.8 While the absolute QT interval was within normal limits the corrected QT interval was prolonged and therefore currently was consulted ROS: No fever chills or rigors, no cough, phlegm or expectoration, no nausea, vomiting or diarrhea, no hematuria, dysuria, no musculoskeletal complaints, no strokes or seizures, history of severe headache no skin lesions. EXAMINATION: Afebrile 98F, normal pulse rate in the 60s, blood pressure 130/56. Sodium 151/73 mmHg Normal heart sounds no murmurs or gallops or rub Normal breath sounds no crackles no rhonchi Abdomen soft nontender Extremities warm no edema REVIEW OF LABS, ECG & MEDICAL DATA Magnesium 0.8 and repeat 1.4 after 3 g of magnesium potassium 3.9 BUN 16 creatinine 1.2 Twelve-lead ECG shows sinus rhythm, mildly prolonged MI interval, left bundle branch block pattern, absolute QT interval of 440-460 ms Past Medical History Past Medical History: Atrial Fibrillation, Chest Pain / Angina, Deep Vein Thrombosis (DVT), GERD/Reflux, Hyperlipidemia, Hypertension, Pulmonary Embolus (PE), Sleep Apnea/CPAP/BIPAP, Thyroid Disorder, Vascular Disorder Additional Past Medical History / Comment(s): KRISTY with CPAP use, hypothyroid, PE (pt cannot recall laterality), R arm DVT, post operative afib, 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 History of Any Multi-Drug Resistant Organisms: None Reported Past Surgical History: Adenoidectomy, Breast Surgery, Cholecystectomy, Coronary Bypass/CABG, Heart Catheterization With Stent, Hernia Repair, Tonsillectomy Additional Past Surgical History / Comment(s): Cardiac caths with stent to proximal LAD in 2003 and stent to mid LAD 2010, 03/09/12 CABG-3 vessel, umbilical hernia repair, bilateral breast bx-R breast had chrystall removed, L caratid endartectomy, UVPPP, colonoscopy, hemorrhoidectomy, bilateral cataract removal with lens implants. Past Anesthesia/Blood Transfusion Reactions: No Reported Reaction Additional Past Anesthesia/Blood Transfusion Reaction / Comment(s): never recieved any blood in past. Date of Last Stent Placement:: 2010 Past Psychological History: Anxiety, Depression Additional Psychological History / Comment(s): Pt states she is no longer on medication for depression-"I took myself off and am doing fine." She states she lives with her spouse,is independant. no medical equipment or outside services.. Smoking Status: Never smoker Past Alcohol Use History: None Reported Past Drug Use History: None Reported - Past Family History Father Family Medical History: Congestive Heart Failure (CHF), Coronary Artery Disease (CAD) Additional Family Medical History / Comment(s): Father at the age of 57yrs of CHF Mother Family Medical History: Cancer Additional Family Medical History / Comment(s): Mother had colon cancer. She lived to be 89 1/2yrs old. Brother(s) History Unknown: Yes Sister(s) Family Medical History: Cancer Additional Family Medical History / Comment(s): Patient states sister from complications after open heart Daughter(s) History Unknown: Yes Additional Family Medical History / Comment(s): liver cancer Medications and Allergies Home Medications Medication Instructions Recorded Confirmed Type Atenolol [Tenormin] 50 mg PO HS 01/10/16 06/04/18 History Pantoprazole Sodium [Protonix] 40 mg PO DAILY 06/12/17 06/04/18 History Warfarin Sodium 2.5 mg PO SUMOTUWETHFR 11/16/17 06/04/18 History ALPRAZolam [Xanax] 1 mg PO HS PRN 06/04/18 06/04/18 History Atorvastatin [Lipitor] 40 mg PO HS 06/04/18 06/04/18 History Levothyroxine Sodium [Synthroid] 25 mcg PO DAILY 06/04/18 06/04/18 History Warfarin [Coumadin] 5 mg PO SA 06/04/18 06/04/18 History Allergies Allergy/AdvReac Type Severity Reaction Status Date / Time No Known Allergies Allergy Verified 06/04/18 21:34 Physical Exam Vitals: Vital Signs Temp Pulse Pulse Resp BP BP Pulse Ox 06/05/18 12:00 98 F 69 18 151/73 95 06/05/18 07:34 97.6 F 64 16 130/56 92 L 06/05/18 04:00 98.1 F 72 18 141/62 90 L 06/05/18 02:10 75 16 126/51 06/05/18 02:00 136/78 06/05/18 01:30 136/78 06/05/18 01:10 136/78 06/05/18 00:40 134/57 06/05/18 00:28 98.1 F 72 18 141/62 90 L 06/05/18 00:20 146/62 06/05/18 00:10 149/69 06/04/18 23:50 135/61 06/04/18 23:40 155/66 06/04/18 23:30 171/78 06/04/18 23:20 171/78 06/04/18 23:15 179/79 06/04/18 23:10 62 16 179/79 06/04/18 23:00 186/82 06/04/18 22:40 174/76 92 L 06/04/18 22:20 195/84 95 06/04/18 21:50 198/98 94 L 06/04/18 21:30 201/91 92 L 06/04/18 20:50 184/121 96 06/04/18 20:41 95 06/04/18 20:36 98.8 F 85 20 207/92 95 Intake and Output 06/04/18 06/05/18 06/05/18 22:59 06:59 14:59 Intake Total 100 Balance 100 Intake: Oral 100 Other: Voiding Method Toilet Toilet Weight 76.204 kg Results 06/04/18 20:54 06/04/18 20:54 Cardiac Enzymes 06/04/18 06/04/18 Range/Units 20:54 20:54 AST 40 H (14-36) U/L Troponin I <0.012 (0.000-0.034) ng/mL Coagulation 06/04/18 Range/Units 20:54 PT 20.5 H (9.0-12.0) sec CBC 06/04/18 Range/Units 20:54 WBC 8.1 (3.8-10.6) k/uL RBC 4.13 (3.80-5.40) m/uL Hgb 12.3 (11.4-16.0) gm/dL Hct 38.3 (34.0-46.0) % Plt Count 237 (150-450) k/uL Comprehensive Metabolic Panel 06/04/18 Range/Units 20:54 Sodium 141 (137-145) mmol/L Potassium 3.9 (3.5-5.1) mmol/L Chloride 101 (98-107) mmol/L Carbon Dioxide 28 (22-30) mmol/L BUN 16 (7-17) mg/dL Creatinine 1.21 H (0.52-1.04) mg/dL Glucose 141 H (74-99) mg/dL Calcium 7.6 L (8.4-10.2) mg/dL AST 40 H (14-36) U/L ALT 23 (9-52) U/L Alkaline Phosphatase 61 (38-126) U/L Total Protein 7.8 (6.3-8.2) g/dL Albumin 4.2 (3.5-5.0) g/dL Current Medications Generic Name Dose Route Start Last Admin Trade Name Freq PRN Reason Stop Dose Admin Acetaminophen 650 mg 06/04/18 22:05 Tylenol Tab PO Q6HR PRN Mild Pain or Fever > 100.5 Alprazolam 1 mg 06/04/18 22:07 06/05/18 02:49 Xanax PO 1 mg HS PRN Administration Anxiety Atenolol 50 mg 06/05/18 21:00 Tenormin PO HS DEVANTE Atorvastatin Calcium 40 mg 06/05/18 21:00 Lipitor PO HS DEVANTE Sodium Chloride 1,000 mls @ 100 mls/hr 06/04/18 22:15 06/05/18 06:49 Saline 0.9% IV 100 mls/hr .Q10H DEVANTE Administration Levothyroxine Sodium 25 mcg 06/05/18 06:30 06/05/18 06:50 Synthroid PO 25 mcg DAILY@0630 DEVANTE Administration Miscellaneous Information 1 each 06/05/18 09:29 Magnesium Per Protocol MISCELLANE DAILY PRN Per Protocol Protocol Morphine Sulfate 4 mg 06/04/18 22:05 06/04/18 22:47 Morphine Sulfate (Inj) IV 4 mg Q4HR PRN Administration Severe Pain Naloxone HCl 0.2 mg 06/04/18 22:05 Narcan IV Q2M PRN Opioid Reversal Ondansetron HCl 4 mg 06/04/18 22:05 Zofran IVP Q8HR PRN Nausea And Vomiting Pantoprazole Sodium 40 mg 06/05/18 09:00 06/05/18 07:46 Protonix IV 40 mg DAILY DEVANTE Administration Spironolactone 25 mg 06/05/18 12:45 Aldactone PO DAILY [facility] Warfarin Sodium 5 mg 06/08/18 18:00 Coumadin PO Sa@1800 DEVANTE Warfarin Sodium 2.5 mg 06/05/18 18:00 Coumadin PO [id number]@1800 [facility] Intake and Output 06/04/18 06/05/18 06/05/18 22:59 06:59 14:59 Intake Total 100 Balance 100 Intake: Oral 100 Other: Voiding Method Toilet Toilet Weight 76.204 kg 06/04/18 20:54 06/04/18 20:54
[2018-06-05] MEDS: SPIRONOLACTONE 25 MG TAB PO SCH (14:51)
[2018-06-05] MEDS ORDERED: WARFARIN 5 MG TAB PO SCH (18:00)
[2018-06-05 19:42] LABS: Gliadin AB IgA, Unit <0.2 U/mL
--- NOTE | 2018-06-05 20:40 | P.HPIM ---
History of Present Illness H&P Date: 06/05/18 Chief Complaint: Weakness, headache, critical hypomagnesemia upon eval long QT This is an 82-year-old pleasant lady patient of Dr. Guido and Dr. Paulino. She has underlying history of atrial fibrillation, prior PE in the past, with DVT, atrial fibrillation hyperlipidemia, hypertension, sleep apnea and hypothyroidism, chronic anticoagulation since her initial pulmonary emboli in 2009, follows by Dr. Cook/Thelma Mcclendon for the pulmonary emboli. . She presented to the emergency room secondary to weakness, preceded by headache in the left side. She has some nausea without any vomiting, along with GI upset. She has chronic postprandial diarrhea for several years,, denied any abdominal pain, she had colonoscopy done by Dr. Moreno in the past, this is prior to 2013 patient was not diagnosed to have any collagenous colitis, or inflammatory bowel disease, however pathologies from that colonoscopy biopsy is not available for review. Patient denies any chest pain. She has intermittent palpitations, Emergency room, initial evaluation showed severe hypomagnesemia,level on admission of 0.8, EKG shows left bundle rosemary block in the 12-lead EKG, mild prolonged VA interval, QTC of 537 ms patient was seen in consultation with Dr. 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 neck pain, Denies bleeding gums, Denies dental pain, Denies dysphagia, Denies epistaxis, Denies headache, Denies hoarseness, Denies mouth pain, Denies nasal congestion, Denies nasal discharge, Denies neck fullness/pressure, Denies neck lump, Denies nose pain, Denies odynophagia, Denies post-nasal drip, Denies sinus pain, Denies sinus pressure, Denies swelling in mouth, Denies swelling in throat, Denies sore throat, Denies vertigo, Denies voice changes Cardiovascular: Reports as per HPI, Reports chest pain, Reports lightheadedness, Denies claudication, Denies decreased exercise tolerance, Denies dyspnea on exertion, Denies edema, Denies high blood pressure, Denies irregular heart beat, Denies leg edema, Denies orthopnea, Denies palpitations, Denies paroxysmal nocturnal dyspnea, Denies phlebitis, Denies rapid heart beat, Denies shortness of breath, Denies syncope Respiratory: Reports as per HPI, Denies congestion, Denies cough, Denies cough with sputum, Denies dyspnea, Denies excessive sputum, Denies hemoptysis, Denies home oxygen, Denies pain, Denies pain on inspiration, Denies pleurisy, Denies respiratory infections, Denies sleep apnea, Denies snoring, Denies wheezing Gastrointestinal: Reports as per HPI, Reports diarrhea, Denies abdominal pain, Denies belching, Denies bloating, Denies BRBPR, Denies change in bowel habits, Denies coffee ground emesis, Denies constipation, Denies dyspepsia, Denies early satiety, Denies excessive gas, Denies heartburn, Denies hematemesis, Denies hematochezia, Denies indigestion, Denies jaundice, Denies lactose intolerance, Denies loss of appetite, Denies melena, Denies nausea, Denies vomiting Genitourinary: Reports as per HPI, Denies abnormal vaginal bleeding, Denies decreased libido, Denies difficulty conceiving, Denies difficulty voiding, Denies dysmenorrhea, Denies dyspareunia, Denies dysuria, Denies flank pain, Denies genital sores, Denies hematuria, Denies hot flashes, Denies incomplete emptying, Denies kidney stones, Denies menorrhagia, Denies mixed incontinence, Denies nocturia, Denies pelvic pain, Denies post void dribbling, Denies , Denies prolapse symptoms, Denies stress incontinence, Denies urge incontinence, Denies urgency, Denies urinary frequency, Denies vaginal discharge, Denies vaginal dryness, Denies vaginal itching, Denies vaginal odor Menstruation: Reports as per HPI, Denies amenorrhea, Denies amenorrhea on BC, Denies currently menstrual, Denies cycle < 21 days, Denies cycle > 35 days, Denies cycle variable, Denies menses 1-7 days, Denies menses 8 or > days, Denies menses variable, Denies period heavy, Denies period light, Denies period normal, Denies period spotting, Denies post hysterectomy, Denies postmenopausal, Denies premenarcheal Musculoskeletal: Reports as per HPI, Denies arm numbness/tingling, Denies atrophy, Denies fractures, Denies frequent falls, Denies gait dysfunction, Denies hot joints, Denies leg numbness/tingling, Denies limitation of motion, Denies loss of height, Denies low back pain, Denies morning stiffness, Denies muscle cramps, Denies muscle weakness, Denies myalgias, Denies neck pain, Denies neck stiffness, Denies prior amputations, Denies redness of joints, Denies shooting arm pain, Denies shooting leg pain Integumentary: Reports as per HPI Neurological: Reports as per HPI, Reports migraines, Denies aphasia, Denies ataxia, Denies balance difficulties, Denies burning pain, Denies change in mentation, Denies change in smell/taste, Denies change in speech, Denies confusion, Denies convulsions, Denies double vision, Denies gait dysfunction, Denies head injury, Denies headaches, Denies hearing difficulties, Denies lack of coordination, Denies loss of vision, Denies memory loss, Denies motor disturbance, Denies numbness, Denies paralysis, Denies paresthesias, Denies seizures, Denies sensory deficit, Denies spasticity, Denies syncope, Denies tic, Denies tingling, Denies transient paralysis, Denies tremors, Denies vertigo, Denies weakness, Denies visual changes Psychiatric: Reports as per HPI Endocrine: Reports as per HPI, Denies cold intolerance, Denies deepening of the voice, Denies excessive sweating, Denies excessive thirst, Denies fatigue, Denies flushing, Denies heat intolerance, Denies high blood sugars, Denies increase in ring/shoe/hat size, Denies low blood sugars, Denies nocturia, Denies palpitations, Denies polydipsia, Denies polyphagia, Denies polyuria, Denies proptosis, Denies recent glucocorticoid use, Denies thyroid mass, Denies weight change Hematologic/Lymphatic: Reports as per HPI, Denies easy bleeding, Denies easy bruising, Denies lymphadenopathy, Denies lymphedema, Denies thrombophilia Allergic/Immunologic: Reports as per HPI, Denies allergic rhinitis, Denies anaphylaxis, Denies angioedema, Denies gluten intolerance, Denies persistent infections, Denies seasonal allergies, Denies urticaria, Denies wheezing Past Medical History Past Medical History: Atrial Fibrillation, Chest Pain / Angina, Deep Vein Thrombosis (DVT), GERD/Reflux, Hyperlipidemia, Hypertension, Pulmonary Embolus (PE), Sleep Apnea/CPAP/BIPAP, Thyroid Disorder, Vascular Disorder Additional Past Medical History / Comment(s): KRISTY with CPAP use, hypothyroid, PE (pt cannot recall laterality), R arm DVT, post operative afib, 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 History of Any Multi-Drug Resistant Organisms: None Reported Past Surgical History: Adenoidectomy, Breast Surgery, Cholecystectomy, Coronary Bypass/CABG, Heart Catheterization With Stent, Hernia Repair, Tonsillectomy Additional Past Surgical History / Comment(s): Cardiac caths with stent to proximal LAD in 2003 and stent to mid LAD 2010, 03/09/12 CABG-3 vessel, umbilical hernia repair, bilateral breast bx-R breast had chrystall removed, L caratid endartectomy, UVPPP, colonoscopy, hemorrhoidectomy, bilateral cataract removal with lens implants. Past Anesthesia/Blood Transfusion Reactions: No Reported Reaction Additional Past Anesthesia/Blood Transfusion Reaction / Comment(s): never recieved any blood in past. Date of Last Stent Placement:: 2010 Past Psychological History: Anxiety, Depression Additional Psychological History / Comment(s): Pt states she is no longer on medication for depression-"I took myself off and am doing fine." She states she lives with her spouse,is independant. no medical equipment or outside services.. Smoking Status: Never smoker Past Alcohol Use History: None Reported Past Drug Use History: None Reported - Past Family History Father Family Medical History: Congestive Heart Failure (CHF), Coronary Artery Disease (CAD) Additional Family Medical History / Comment(s): Father at the age of 57yrs of CHF Mother Family Medical History: Cancer Additional Family Medical History / Comment(s): Mother had colon cancer. She lived to be 89 1/2yrs old. Brother(s) History Unknown: Yes Sister(s) Family Medical History: Cancer Additional Family Medical History / Comment(s): Patient states sister from complications after open heart Daughter(s) History Unknown: Yes Additional Family Medical History / Comment(s): liver cancer Medications and Allergies Home Medications Medication Instructions Recorded Confirmed Type Atenolol [Tenormin] 50 mg PO HS 01/10/16 06/04/18 History Pantoprazole Sodium [Protonix] 40 mg PO DAILY 06/12/17 06/04/18 History Warfarin Sodium 2.5 mg PO SUMOTUWETHFR 11/16/17 06/04/18 History ALPRAZolam [Xanax] 1 mg PO HS PRN 06/04/18 06/04/18 History Atorvastatin [Lipitor] 40 mg PO HS 06/04/18 06/04/18 History Levothyroxine Sodium [Synthroid] 25 mcg PO DAILY 06/04/18 06/04/18 History Warfarin [Coumadin] 5 mg PO SA 06/04/18 06/04/18 History Allergies Allergy/AdvReac Type Severity Reaction Status Date / Time No Known Allergies Allergy Verified 06/04/18 21:34 Physical Exam Vitals: Vital Signs Temp Pulse Pulse Resp BP BP Pulse Ox 06/05/18 15:10 68 19 06/05/18 14:57 97.7 F 68 19 131/66 93 L 06/05/18 12:00 98 F 69 18 151/73 95 06/05/18 07:34 97.6 F 64 16 130/56 92 L 06/05/18 04:00 98.1 F 72 18 141/62 90 L 06/05/18 02:10 75 16 126/51 06/05/18 02:00 136/78 06/05/18 01:30 136/78 06/05/18 01:10 136/78 06/05/18 00:40 134/57 06/05/18 00:28 98.1 F 72 18 141/62 90 L 06/05/18 00:20 146/62 06/05/18 00:10 149/69 06/04/18 23:50 135/61 06/04/18 23:40 155/66 06/04/18 23:30 171/78 06/04/18 23:20 171/78 06/04/18 23:15 179/79 06/04/18 23:10 62 16 179/79 06/04/18 23:00 186/82 06/04/18 22:40 174/76 92 L 06/04/18 22:20 195/84 95 06/04/18 21:50 198/98 94 L 06/04/18 21:30 201/91 92 L 06/04/18 20:50 184/121 96 06/04/18 20:41 95 06/04/18 20:36 98.8 F 85 20 207/92 95 Intake and Output 06/05/18 06/05/18 06/05/18 06:59 14:59 22:59 Intake Total 100 236 Balance 100 236 Intake: Oral 100 236 Other: Voiding Method Toilet Toilet - Constitutional General appearance: cooperative, no acute distress - EENT Eyes: anicteric sclerae, EOMI, PERRLA, dentition normal, normal appearance ENT: hearing grossly normal, NA/AT, normal oropharynx - Neck Neck: no lymphadenopathy, normal ROM, no other, no rigidity, no stridor, no thyromegaly Thyroid: negative: nodule - Respiratory Respiratory: bilateral: CTA, negative: diminished, dullness, rales, wheezing - Cardiovascular Rhythm: regular Heart sounds: normal: S1, S2 Abnormal Heart Sounds: no systolic murmur, no diastolic murmur, no rub, no S3 Gallop, no S4 Gallop, no click, no other - Gastrointestinal General gastrointestinal: normal bowel sounds, soft - Integumentary Integumentary: decreased turgor, normal - Neurologic Neurologic: CNII-XII intact - Musculoskeletal Musculoskeletal: gait normal, no generalized weakness, strength equal bilaterally, no right sided weakness, no left sided weakness - Psychiatric Psychiatric: A&O x's 3, appropriate affect, intact judgment & insight Results CBC & Chem 7: 06/04/18 20:54 06/04/18 20:54 Labs: Abnormal Lab Results - Last 24 Hours (Table) 06/04/18 06/04/18 06/04/18 Range/Units 20:54 20:54 20:54 PT 20.5 H (9.0-12.0) sec INR 2.1 H (<1.2) Creatinine 1.21 H (0.52-1.04) mg/dL Glucose 141 H (74-99) mg/dL Calcium 7.6 L (8.4-10.2) mg/dL Magnesium 0.8 L* (1.6-2.3) mg/dL Total Bilirubin 1.7 H (0.2-1.3) mg/dL AST 40 H (14-36) U/L 06/05/18 Range/Units 07:12 PT (9.0-12.0) sec INR (<1.2) Creatinine (0.52-1.04) mg/dL Glucose (74-99) mg/dL Calcium (8.4-10.2) mg/dL Magnesium 1.4 L (1.6-2.3) mg/dL Total Bilirubin (0.2-1.3) mg/dL AST (14-36) U/L Laboratory Results WBC 8.1 k/uL (3.8-10.6) 06/04/18 20:54 RBC 4.13 m/uL (3.80-5.40) 06/04/18 20:54 Hgb 12.3 gm/dL (11.4-16.0) 06/04/18 20:54 Hct 38.3 % (34.0-46.0) 06/04/18 20:54 MCV 92.9 fL (80.0-100.0) 06/04/18 20:54 MCH 29.9 pg (25.0-35.0) 06/04/18 20:54 MCHC 32.2 g/dL (31.0-37.0) 06/04/18 20:54 RDW 14.8 % (11.5-15.5) 06/04/18 20:54 Plt Count 237 k/uL (150-450) 06/04/18 20:54 Neutrophils % 59 % 06/04/18 20:54 Lymphocytes % 30 % 06/04/18 20:54 Monocytes % 5 % 06/04/18 20:54 Eosinophils % 4 % 06/04/18 20:54 Basophils % 0 % 06/04/18 20:54 Neutrophils # 4.8 k/uL (1.3-7.7) 06/04/18 20:54 Lymphocytes # 2.4 k/uL (1.0-4.8) 06/04/18 20:54 Monocytes # 0.4 k/uL (0-1.0) 06/04/18 20:54 Eosinophils # 0.3 k/uL (0-0.7) 06/04/18 20:54 Basophils # 0.0 k/uL (0-0.2) 06/04/18 20:54 PT 20.5 sec (9.0-12.0) H 06/04/18 20:54 INR 2.1 (<1.2) H 06/04/18 20:54 Sodium 141 mmol/L (137-145) 06/04/18 20:54 Potassium 3.9 mmol/L (3.5-5.1) 06/04/18 20:54 Chloride 101 mmol/L (98-107) 06/04/18 20:54 Carbon Dioxide 28 mmol/L (22-30) 06/04/18 20:54 Anion Gap 12 mmol/L 06/04/18 20:54 BUN 16 mg/dL (7-17) 06/04/18 20:54 Creatinine 1.21 mg/dL (0.52-1.04) H 06/04/18 20:54 Est GFR (CKD-EPI)AfAm 48 (>60 ml/min/1.73 sqM) 06/04/18 20:54 Est GFR (CKD-EPI)NonAf 41 (>60 ml/min/1.73 sqM) 06/04/18 20:54 Glucose 141 mg/dL (74-99) H 06/04/18 20:54 Calcium 7.6 mg/dL (8.4-10.2) L 06/04/18 20:54 Magnesium 1.4 mg/dL (1.6-2.3) L 06/05/18 07:12 Total Bilirubin 1.7 mg/dL (0.2-1.3) H 06/04/18 20:54 AST 40 U/L (14-36) H 06/04/18 20:54 ALT 23 U/L (9-52) 06/04/18 20:54 Alkaline Phosphatase 61 U/L (38-126) 06/04/18 20:54 Troponin I <0.012 ng/mL (0.000-0.034) 06/04/18 20:54 Total Protein 7.8 g/dL (6.3-8.2) 06/04/18 20:54 Albumin 4.2 g/dL (3.5-5.0) 06/04/18 20:54 Tiss Transglutamin IgG <0.8 U/mL 06/05/18 07:10 Tiss Transglut IgG Intp NEGATIVE (NEGATIVE) 06/05/18 07:10 Tiss Transglutamin IgA <0.5 AI 06/05/18 07:10 Tis Transglut IgA Intrp NEGATIVE (NEGATIVE) 06/05/18 07:10 Anti-Gliadin IgG Deam <0.4 U/mL 06/05/18 07:10 Anti-Gliadin IgA Deam <0.2 U/mL 06/05/18 07:10 Gliadin (Deam) IgG Int NEGATIVE (NEGATIVE) 06/05/18 07:10 Gliadin (Deam) IgA Int NEGATIVE (NEGATIVE) 06/05/18 07:10 Thrombosis Risk Factor Assmnt - DVT/VTE Prophylaxis DVT/VTE Prophylaxis: Pharmacologic Prophylaxis ordered - Choose All That Apply Any of the Below Risk Factors Present?: Yes Other Risk Factors: Yes Each Risk Factor Represents 3 Points: Age 75 years or older, Family history of DVT/PE, History of DVT/PE Thrombosis Risk Factor Assessment Total Risk Factor Score: 9 Thrombosis Risk Factor Assessment Level: High Risk Assessment and Plan Plan: 1. Critical hypomagnesemia with prolonged QT interval noted initial EKG, patient has IV medication replacements while here, evaluate for persistent losses including persistent diarrhea,, Dr. vinson has seen the patient, for which absolute QT interval was estimated to be normal, electrolytes will be monitored, spironolactone has been recommended by Dr. vinson, a 25 mg daily, to conserve on potassium and magnesium losses, admission supplements at 400 mg daily, 2. Persistent postprandial diarrhea, possible gluten sensitivity against IBS diarrhea, with lactose intolerance, collagenous colitis cannot be ruled out, doubt inflammatory bowel disease. However we'll going to obtain sed rate CRP, consultation with GI, celiac panel to be obtained, patient might benefit from viberzi/ or lotronex or xifafan if failures with lomotil or immodium, will await gi consutl for proper diagnosis prior to initiation of this medications , will check for sed rate CRP, celiac panel C. diff toxin 3. Headaches, negative initial brain CT, no red flags on presentation, continue to monitor, 3. CAD with CABG 3 vessel disease in 2012, history of cardiac stents with last one placed in 2010 graft 4. history DVT and pulmonary emboli for which she requires lifelong anticoagulation stable she is on Coumadin and INRs therpaeutic, Hold off Coumadin, use heparin for DVT prophylaxis, while awaiting GI consultation for anticipated colonoscopy if needed . dr NATALIIA mcclendon following op inr 5.. History of pulmonary emboli for which she is chronically anticoagulated with Coumadin, S/P Bharat monitoring INRs as outpatient 6 Proximal atrial fibrillation currently in sinus rhythm on long-term anticoagulation with Coumadin 6. Hyperlipidemia on Lipitor 40 7. Hypothyroidism on Synthroid 50 8. Obstructive sleep apnea on CPAP 9. History of PAD currently asymptomatic DVT prophylaxis on maintenance Coumadin, Heparin subcu every 12 hours while waiting for GI for anticipated colonoscopy if needed
[2018-06-05] MEDS: ATORVASTATIN 40 MG TAB PO SCH (21:10)
[2018-06-05] MEDS: ATENOLOL 50 MG TAB PO SCH (21:10)
[2018-06-05] MEDS: ENOXAPARIN 40 MG/0.4 ML SYRINGE SQ SCH (23:50)
[2018-06-06] MEDS: SODIUM CHLORIDE 0.9% 1,000 ML IV SCH (05:55)
[2018-06-06] MEDS: LEVOTHYROXINE 25 MCG TAB PO SCH (06:11)
[2018-06-06 07:47] LABS: Calcium 7.4 mg/dL (8.4-10.2); Magnesium 2.1 mg/dL (1.6-2.3); Potassium 3.7 mmol/L (3.5-5.1)
[2018-06-06 07:52] LABS: Basophils % (A) 1 %; Eosinophils # (A) 0.3 k/uL (0-0.7); Eosinophils % (A) 5 %; HCT 33.5 % (34.0-46.0); HGB 10.9 gm/dL (11.4-16.0); Hypochromasia Slight; Lymphocytes # (A) 1.8 k/uL (1.0-4.8); Lymphocytes % (A) 34 %; MCH 31.2 pg (25.0-35.0); MCHC 32.7 g/dL (31.0-37.0); MCV 95.3 fL (80.0-100.0); Mean Platelet Volume 7.6; Monocytes # (A) 0.3 k/uL (0-1.0); Monocytes % (A) 6 %; Neutrophils # (A) 2.9 k/uL (1.3-7.7); Neutrophils % (A) 53 %; Platelet Count 214 k/uL (150-450); RBC 3.51 m/uL (3.80-5.40); WBC 5.4 k/uL (3.8-10.6)
[2018-06-06 08:27] LABS: C Reactive Protein 12.7 mg/L (<10.0)
[2018-06-06 08:58] LABS: T4, Free (Free Thyroxine) 0.96 ng/dL (0.78-2.19)
[2018-06-06] MEDS: PANTOPRAZOLE 40 MG/10 ML VIAL IV SCH (09:13)
[2018-06-06] MEDS: ENOXAPARIN 40 MG/0.4 ML SYRINGE SQ SCH (09:19)
[2018-06-06] MEDS: SPIRONOLACTONE 25 MG TAB PO SCH (09:19)
--- NOTE | 2018-06-06 13:25 | P.CONS ---
History of Present Illness - Reason for Consult Consult date: 06/06/18 Diarrhea malnutrition Requesting physician: Mia Bailey - Chief Complaint Weakness headache nausea vomiting - History of Present Illness 82-year-old female with a history of chronic postprandial diarrhea, colonic diverticulosis, A. fib, PE, DVT chronic anticoagulation, and recent passing of her daughter last month. Admitted with headache indigestion nausea. Evidence o f prolonged QT interval noted on EKG as well as low serum magnesium 0.8. CT brain no acute process. Headache has improved. Consult requested for diarrhea possible malnutrition. Present chemistries white count 5.4. Hemoglobin 10.9. MCV 95. Platelet 214. INR 2.1. Sodium 144. Potassium 3.7. BUN 13. Creatinine 0.9. Magnesium 2.1. C-reactive 12.7. Albumin 4.2. Celiac panel negative. No fevers chills rectal bleeding. Last colonoscopy February 2013 per GI office records however report is not available at time of dictation. According to the patient she has had a history of persistent loose stools postprandial for least 5 months duration but not occurring on a daily basis. Sometimes she has no bowel movements daily sometimes she has 3-4 movements depending on what she eats. Diarrhea is not associated with incontinence fever chills hematemesis hematochezia melena or abdominal pain. Decreased appetite stress over the last few months secondary to caring for her daughter who was d iagnosed with cancer and unfortunately a few weeks ago. She feels her and her have been stressed and that's why they're not eating well. Patient states she does not feel she is malnourished and that her diarrhea for the most part is controlled with [id number] antidiarrheals which she only takes intermittently as needed. Denies excessive diarrhea prior to admission. Review of Systems Constitutional: Denies fever, chills, sweats, weight gain, or loss. HEENT: Negative for migraines, blurred vision or loss, earaches, drainage, tinni tus, oral mucosal lesions, dysphagia, or odynophagia. CARDIAC: Negative for chest pain, arrhythmias, or palpitation. RESPIRATORY: Negative for shortness of breath, hemoptysis, cough, or sputum production. GI: See HPI for pertinent findings. : Negative for hematuria, urgency, frequency, polyuria, or dysuria. GYNc: Denies possibility of . Negative vaginal discharge. MUSCULOSKELETAL: Negative for muscle aches, swelling, arthritis, and arthralgias. NEUROLOGIC: Negative for stroke or TIA. ENDOCRINE: Negative for thyroid problems. SKIN: Negative for rash or itching. 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 History of Any Multi-Drug Resistant Organisms: None Reported Past Surgical History: Adenoidectomy, Breast Surgery, Cholecystectomy, Coronary Bypass/CABG, Heart Catheterization With Stent, Hernia Repair, Tonsillectomy Additional Past Surgical History / Comment(s): Cardiac caths with stent to proximal LAD in 2003 and stent to mid LAD 2010, 03/09/12 CABG-3 vessel, umbilical hernia repair, bilateral breast bx-R breast had chrystall removed, L caratid endartectomy, UVPPP, colonoscopy, hemorrhoidectomy, bilateral cataract removal with lens implants. Past Anesthesia/Blood Transfusion Reactions: No Reported Reaction Additional Past Anesthesia/Blood Transfusion Reaction / Comm: never recieved any blood in past. Date of Last Stent Placement:: 2010 Past Psychological History: Anxiety, Depression Additional Psychological History / Comment(s): Pt states she is no longer on medication for depression-"I took myself off and am doing fine." She states she lives with her spouse,is independant. no medical equipment or outside services.. Smoking Status: Never smoker Past Alcohol Use History: None Reported Past Drug Use History: None Reported - Past Family History Father Family Medical History: Congestive Heart Failure (CHF), Coronary Artery Disease (CAD) Additional Family Medical History / Comment(s): Father at the age of 57yrs of CHF Mother Family Medical History: Cancer Additional Family Medical History / Comment(s): Mother had colon cancer. She lived to be 89 1/2yrs old. Brother(s) History Unknown: Yes Sister(s) Family Medical History: Cancer Additional Family Medical History / Comment(s): Patient states sister from complications after open heart Daughter(s) History Unknown: Yes Additional Family Medical History / Comment(s): liver cancer Medications and Allergies Home Medications Medication Instructions Recorded Confirmed Type Atenolol [Tenormin] 50 mg PO HS 01/10/16 06/04/18 History Pantoprazole Sodium [Protonix] 40 mg PO DAILY 06/12/17 06/04/18 History Warfarin Sodium 2.5 mg PO SUMOTUWETHFR 11/16/17 06/04/18 History ALPRAZolam [Xanax] 1 mg PO HS PRN 06/04/18 06/04/18 History Atorvastatin [Lipitor] 40 mg PO HS 06/04/18 06/04/18 History Levothyroxine Sodium [Synthroid] 25 mcg PO DAILY 06/04/18 06/04/18 History Warfarin [Coumadin] 5 mg PO SA 06/04/18 06/04/18 History Allergies Allergy/AdvReac Type Severity Reaction Status Date / Time No Known Allergies Allergy Verified 06/04/18 21:34 Physical Exam Vitals: Vital Signs Temp Pulse Resp BP Pulse Ox 06/06/18 07:45 97.4 F L 67 18 200/87 96 06/06/18 04:00 98.3 F 61 18 144/88 96 06/06/18 00:00 98.9 F 68 19 189/90 95 06/05/18 20:00 98.5 F 70 18 146/69 96 06/05/18 15:10 68 19 06/05/18 14:57 97.7 F 68 19 131/66 93 L Intake and Output 06/05/18 06/06/18 06/06/18 22:59 06:59 14:59 Intake Total 556 240 Balance 556 240 Intake: Intake, IV Titration 200 Amount Sodium Chloride 0.9% 1, 200 000 ml @ 100 mls/hr IV . Q10H [facility] Rx#:[id number] Oral 356 240 Other: Voiding Method Toilet Toilet # Voids 2 1 1 Weight 78.1 kg General appearance: The patient is alert, oriented, in no acute distress. HET: Head is normocephalic and atraumatic. Pupils are equal and reactive. Oropharynx is clear without lesions. Neck: Supple without lymphadenopathy. Trachea midline. Heart: S1 S2. Regular rate and rhythm. Lungs: No crackles or wheezes are heard. Abdomen: Soft, nontender, nondistended with bowel sounds. No peritoneal signs. No palpable organomegaly or masses. Extremities: Normal skin color and turgor. No cyanosis, rash, ulceration, clubbing, or edema. Radial and pedal pulses are 2/4 bilaterally. Neurological: No focal deficits. Strength and sensation are grossly intact. Results CBC & Chem 7: 06/07/18 06:03 06/07/18 06:03 Labs: Abnormal Lab Results - Last 24 Hours (Table) 06/06/18 06/06/18 Range/Units 06:57 06:57 RBC 3.51 L (3.80-5.40) m/uL Hgb 10.9 L (11.4-16.0) gm/dL Hct 33.5 L (34.0-46.0) % Calcium 7.4 L (8.4-10.2) mg/dL C-Reactive Protein 12.7 H (<10.0) mg/L TSH 5.590 H (0.465-4.680) mIU/L Assessment and Plan (1) Chronic diarrhea Narrative/Plan: 82-year-old female admitted with headaches generalized feelings of weakness with unfortunate recent passing of her daughter April 2018 with an underlying history of chronic intermittent postprandial diarrhea 5 months duration controlled with antidiarrheal without fever chills or GI bleeding. Suspect component of irritable bowel syndrome possibly exacerbated by recent caregiving in passing of daughter. Underlying infectious viral gastroenteritis microscopic colitis is felt to be less likely. Her symptoms of GI upset nausea vomiting could've been related to electrolyte imbalance hypo-magnesium. Last colonoscopy of record was February 2013 details of findings are not available at time of dictation but patient states a few polyps might have been removed. At this time patient is not interested in repeating endoscopic exams at this time. We'll request stool studies as well as Imodium 2 mg 4 times a day prn. Patient was advised instead of taking antidiarrheal as needed to take it on a daily basis starting with 1 tablet daily and titrating up to desired effect based on bowel movement habits; she is agreeable starting this once discharged. Will proceed with dietitian evaluation per patient request and openness. We'll request pre- albumin to assess nutritional status. Return to office in 3-[address] Neff for reevaluation and discussion of possible outpatient colonoscopy screening. Current Visit: Yes Status: Acute Code(s): K52.9 - NONINFECTIVE GASTROENTERITIS AND COLITIS, UNSPECIFIED SNOMED Code(s): 812069736 (2) History of DVT (deep vein thrombosis) Current Visit: Yes Status: Acute Code(s): Z86.718 - PERSONAL HISTORY OF OTHER VENOUS THROMBOSIS AND EMBOLISM SNOMED Code(s): 295667310 (3) History of pulmonary embolism Current Visit: Yes Status: Acute Code(s): Z86.711 - PERSONAL HISTORY OF PULMONARY EMBOLISM SNOMED Code(s): 777377684 (4) Paroxysmal atrial fibrillation Current Visit: Yes Status: Acute Code(s): I48.0 - PAROXYSMAL ATRIAL FIBRILLATION SNOMED Code(s): 015364766 (5) Chronic anticoagulation Current Visit: Yes Status: Acute Code(s): Z79.01 - ASSEMBLY ROOM SUPERVISOR (CURRENT) USE OF ANTICOAGULANTS SNOMED Code(s): 350713291 (6) Warfarin-induced coagulopathy Current Visit: Yes Status: Acute Code(s): D68.32 - HEMORRHAGIC DISORD D/T EXTRINSIC CIRCULATING ANTICOAGULANTS; T45.515A - ADVERSE EFFECT OF ANTICOAGULANTS, INITIAL ENCOUNTER SNOMED Code(s): 15780922 (7) Hypomagnesemia Current Visit: Yes Status: Acute Code(s): E83.42 - HYPOMAGNESEMIA SNOMED Code(s): 880899208 (8) Prolonged QT interval Current Visit: Yes Status: Acute Code(s): R94.31 - ABNORMAL ELECTROCARDIOGRAM [ECG] [EKG] SNOMED Code(s): 263933572 (9) Diverticulosis Current Visit: No Status: Acute Code(s): K57.90 - DVRTCLOS OF INTEST, PART UNSP, W/O PERF OR ABSCESS W/O BLEED SNOMED Code(s): 63026734 (10) Headache Current Visit: Yes Status: Acute Code(s): R51 - HEADACHE SNOMED Code(s): 35283328 Plan: Thank you for this kind referral and the opportunity to participate in the care of your patient. This consultation was discussed with the [facility]. The impression and plan of care have been directed as dictated.
[2018-06-06 14:29] LABS: Erythrocyte Sedimentation Rate 48 mm/hr (0-20)
[2018-06-06 14:48] VITALS: BMI 29.5
--- NOTE | 2018-06-06 14:58 | P.PN ---
Subjective Progress Note Date: 06/06/18 This is an 82-year-old pleasant lady patient of Dr. Guido and Dr. Paulino. She has underlying history of atrial fibrillation, prior PE in the past, with DVT, atrial fibrillation hyperlipidemia, hypertension, sleep apnea and hypothyroidism, chronic anticoagulation since her initial pulmonary emboli in , follows by Dr. Nicolás Mcclendon for the pulmonary emboli. . She presented to the emergency room secondary to weakness, preceded by headache in the left side. She has some nausea without any vomiting, along with GI upset. She has chronic postprandial diarrhea for several years,, denied any abdominal pain, she had colonoscopy done by Dr. Moreno in the past, this is prior to 2013 patient was not diagnosed to have any collagenous colitis, or inflammatory bowel disease, however pathologies from that colonoscopy biopsy is not available for review. Patient denies any chest pain. She has intermittent palpitations, Emergency room, initial evaluation showed severe hypomagnesemia,level on admission of 0.8, EKG shows left bundle rosemary block in the 12-lead EKG, mild prolonged HI interval, QTC of 537 ms patient was seen in consultation with Dr. vinson, handling tech, patient's mentation is corrected with IV mentation, 3 g, consult with GI secondary to significant persistent diarrhea wi th malnutrition, electrolyte abnormalities malabsorption, 06/06: Patient has been seen by GI with plan for stool studies and Imodium to take at least on a daily basis and titrating up as desired effect based on bowel movement habits. No plan for any endoscopy at this point. Patient may follow- up in the office in 3-[address] Hall and possible outpatient colonoscopy. Patient's blood pressure is elevated this morning for which lisinopril has been added. No plan for any procedures the patient's Coumadin will be resumed and discontinue Lovenox. Levothyroxine increased as TSH is 5.255609 0.96. Plan is to monitor patient overnight and probable discharge tomorrow. Repeat magnesium is 2.1. Review Of Systems: Constitutional: No fever, no chills, no night sweats. No weight change. No weakness, fatigue or lethargy. No daytime sleepiness. EENT: No headache. No blurred vision or double vision, no loss of vision. No loss of Hearing, no ringing in the ears, no dizziness. No nasal drainage or congestion. No epistaxis. No sore throat. Lungs: No shortness of breath, cough, no sputum production. No wheezing. Cardiovascular: No chest pain, no lower extremity edema. No palpitations. No paroxysmal nocturnal dyspnea. No orthopnea. No lightheadedness or dizziness. No syncopal episodes. Abdominal: No abdominal pain. No nausea, vomiting. Reports diarrhea. No constipation. No bloody or tarry stools.. No loss of appetite. Genitourinary: No dysuria, increased frequency, urgency. No urinary retention. Musculoskeletal: No myalgias. No muscle weakness, no gait dysfunction, no frequent falls. No back pain. No neck pain. Integumentary: No wounds, no lesions. No rash or pruritus. No unusual bruising. No change in hair or nails. Neurologic: No aphasia. No facial droop. No change in mentation. No head injury. No headache. No paralysis. No paresthesia. Psychiatric: No depression. No anxiety. No mood swings. Endocrine: No abnormal blood sugars. No weight change. No excessive sweating or thirst. No cold intolerance. Objective - Vital Signs Vital signs: Vital Signs Temp 97.4 F L 06/06/18 07:45 Pulse 67 06/06/18 07:45 Resp 18 06/06/18 07:45 BP 200/87 06/06/18 07:45 Pulse Ox 96 06/06/18 07:45 Intake & Output 06/05/18 06/06/18 06/06/18 18:59 06:59 18:59 Intake Total 236 320 240 Balance 236 320 240 Weight 78.1 kg Intake: Intake, IV Titration 200 Amount Sodium Chloride 0.9% 1, 200 000 ml @ 100 mls/hr IV . Q10H [facility] Rx#:[id number] Oral 236 120 240 Other: Voiding Method Toilet Toilet # Voids 1 1 - Exam General appearance: cooperative, no acute distress, resting in recliner - EENT Eyes: anicteric sclerae, EOMI, PERRLA, dentition normal, normal appearance ENT: hearing grossly normal, NA/AT, normal oropharynx - Neck Neck: no lymphadenopathy, normal ROM, no other, no rigidity, no stridor, no thyromegaly Thyroid: negative: nodule - Respiratory Respiratory: bilateral: CTA, negative: diminished, dullness, rales, wheezing - Cardiovascular Rhythm: regular Heart sounds: normal: S1, S2 Abnormal Heart Sounds: no systolic murmur, no diastolic murmur, no rub, no S3 Gallop, no S4 Gallop, no click, no other - Gastrointestinal General gastrointestinal: normal bowel sounds, soft - Integumentary Integumentary: decreased turgor, normal - Neurologic Neurologic: CNII-XII intact - Musculoskeletal Musculoskeletal: gait normal, no generalized weakness, strength equal bilaterally, no right sided weakness, no left sided weakness - Psychiatric Psychiatric: A&O x's 3, appropriate affect, intact judgment & insight - Labs CBC & Chem 7: 06/06/18 06:57 06/06/18 06:57 Labs: Abnormal Lab Results - Last 24 Hours (Table) 06/06/18 06/06/18 Range/Units 06:57 06:57 RBC 3.51 L (3.80-5.40) m/uL Hgb 10.9 L (11.4-16.0) gm/dL Hct 33.5 L (34.0-46.0) % Calcium 7.4 L (8.4-10.2) mg/dL C-Reactive Protein 12.7 H (<10.0) mg/L TSH 5.590 H (0.465-4.680) mIU/L Assessment and Plan Plan: 1. Critical hypomagnesemia with prolonged QT interval noted initial EKG, patient has IV medication replacements while here, evaluate for persistent losses including persistent diarrhea,, Dr. vinson has seen the patient, for which absolute QT interval was estimated to be normal, electrolytes will be monitored, spironolactone has been recommended by Dr. vinson, a 25 mg daily, to conserve on potassium and magnesium losses, magnesium supplements at 400 mg t wice daily. GI consult appreciated. Patient will follow-up in the office. Stool studies to be obtained. 2. Persistent postprandial diarrhea, possible gluten sensitivity against IBS diarrhea, with lactose intolerance, collagenous colitis cannot be ruled out, doubt inflammatory bowel disease. However we'll going to obtain sed rate CRP, consultation with GI appreciated. Celiac panel pending, stool studies pending 3. Headaches, negative initial brain CT, no red flags on presentation, continue to monitor, 3. CAD with CABG 3 vessel disease in 2012, history of cardiac stents with last one placed in 2010 graft 4. History DVT and pulmonary emboli for which she requires lifelong anticoag ulation stable she is on Coumadin and INRs therpaeutic, Hold off Coumadin, use heparin for DVT prophylaxis, while awaiting GI consultation for anticipated colonoscopy if needed . dr NATALIIA mcclendon following op inr 5. History of pulmonary emboli for which she is chronically anticoagulated with Coumadin, S/P Bharat monitoring INRs as outpatient 6. Proximal atrial fibrillation currently in sinus rhythm on long-term anticoagulation with Coumadin 7. Hyperlipidemia on Lipitor 40 8. Hypothyroidism on Synthroid 50 9. Obstructive sleep apnea on CPAP 10. History of PAD currently asymptomatic DVT prophylaxis on maintenance Coumadin which has been resumed. Discharge plan: Home tomorrow Impression and plan of care have been directed as dictated by the signing physician. Kristine Goldstein nurse practitioner acting as scribe for signing physician.
[2018-06-06] MEDS: LISINOPRIL 20 MG TAB PO SCH (15:51)
[2018-06-06] MEDS ORDERED: WARFARIN 2.5 MG TAB PO SCH (18:00)
[2018-06-06] MEDS: ATENOLOL 50 MG TAB PO SCH (20:06)
[2018-06-06] MEDS: ATORVASTATIN 40 MG TAB PO SCH (20:06)
[2018-06-06] MEDS ORDERED: amLODIPine 5 MG TAB PO STA (20:09)
[2018-06-06] MEDS ORDERED: amLODIPine 5 MG TAB PO SCH (21:00)
[2018-06-06] MEDS ORDERED: hydrALAZINE HCL 20 MG/ML 1 ML VIAL IVP PRN (22:54)
[2018-06-06] MEDS: LOPERAMIDE 2 MG CAP PO PRN (23:02)
[2018-06-07 06:27] LABS: Basophils % (A) 0 %; Eosinophils # (A) 0.2 k/uL (0-0.7); Eosinophils % (A) 2 %; HCT 33.6 % (34.0-46.0); HGB 10.7 gm/dL (11.4-16.0); Lymphocytes # (A) 2.1 k/uL (1.0-4.8); Lymphocytes % (A) 32 %; MCHC 31.7 g/dL (31.0-37.0); MCV 94.4 fL (80.0-100.0); Mean Platelet Volume 7.5; Monocytes # (A) 0.4 k/uL (0-1.0); Monocytes % (A) 5 %; Neutrophils # (A) 3.9 k/uL (1.3-7.7); Neutrophils % (A) 59 %; Platelet Count 223 k/uL (150-450); RBC 3.56 m/uL (3.80-5.40); RDW 15.1 % (11.5-15.5); WBC 6.7 k/uL (3.8-10.6)
[2018-06-07 06:30] LABS: Calcium 7.7 mg/dL (8.4-10.2); Potassium 3.5 mmol/L (3.5-5.1)
[2018-06-07] MEDS ORDERED: LEVOTHYROXINE 50 MCG TAB PO SCH (06:30)
[2018-06-07] MEDS: LOPERAMIDE 2 MG CAP PO PRN (06:35)
[2018-06-07] MEDS ORDERED: PANTOPRAZOLE 40 MG TABLET PO SCH (07:30)
[2018-06-07 08:13] VITALS: RESP 18
[2018-06-07] MEDS: LISINOPRIL 20 MG TAB PO SCH (08:16)
[2018-06-07] MEDS: SPIRONOLACTONE 25 MG TAB PO SCH (08:16)
[2018-06-07 11:32] VITALS: BP 123/79; PULSE 67; TEMP 97.9
--- NOTE | 2018-06-07 12:50 | P.PN ---
Subjective Progress Note Date: 06/07/18 Principal diagnosis: Diarrhea Multiple episodes of nonbloody diarrhea last night early a.m without abdominal complaints. Requesting discharge. No BM since afternoon. Feels well. Stool studies so far negative. Prealbumin 12. Objective - Vital Signs Vital signs: Vital Signs Temp 97.9 F 06/07/18 11:20 Pulse 67 06/07/18 11:20 Resp 18 06/07/18 11:20 BP 123/79 06/07/18 11:20 Pulse Ox 95 06/07/18 11:20 Intake & Output 06/06/18 06/07/18 06/07/18 18:59 06:59 18:59 Intake Total 720 180 Balance 720 180 Weight 78.1 kg Intake: Oral 720 180 Other: Voiding Method Toilet Toilet # Voids 2 1 # Bowel Movements 1 - Exam General appearance: The patient is alert, oriented, in no acute distress. HET: Head is normocephalic and atraumatic. Pupils are equal and reactive. Oropharynx is clear without lesions. Neck: Supple without lymphadenopathy. Trachea midline. Heart: S1 S2. Regular rate and rhythm. Lungs: No crackles or wheezes are heard. Abdomen: Soft, nontender, nondistended with bowel sounds. No peritoneal signs. No palpable organomegaly or masses. Extremities: Normal skin color and turgor. No cyanosis, rash, ulceration, clubbing, or edema. Radial and pedal pulses are 2/4 bilaterally. Neurological: No focal deficits. Strength and sensation are grossly intact. - Labs CBC & Chem 7: 06/07/18 06:03 06/07/18 06:03 Labs: Abnormal Lab Results - Last 24 Hours (Table) 06/06/18 06/06/18 06/07/18 Range/Units 06:57 06:57 06:03 RBC 3.56 L (3.80-5.40) m/uL Hgb 10.7 L (11.4-16.0) gm/dL Hct 33.6 L (34.0-46.0) % ESR 48 H (0-20) mm/hr PT (9.0-12.0) sec INR (<1.2) Glucose (74-99) mg/dL Calcium (8.4-10.2) mg/dL Prealbumin 12.0 L (18.0-42.0) mg/dL 06/07/18 06/07/18 Range/Units 06:03 06:03 RBC (3.80-5.40) m/uL Hgb (11.4-16.0) gm/dL Hct (34.0-46.0) % ESR (0-20) mm/hr PT 20.0 H (9.0-12.0) sec INR 2.0 H (<1.2) Glucose 103 H (74-99) mg/dL Calcium 7.7 L (8.4-10.2) mg/dL Prealbumin (18.0-42.0) mg/dL Microbiology - Last 24 Hours (Table) 06/06/18 14:57 Stool Culture - Preliminary Stool Assessment and Plan (1) Chronic diarrhea Narrative/Plan: 82-year-old female admitted with headaches generalized feelings of weakness with unfortunate recent passing of her daughter April 2018 with an underlying history of chronic intermittent postprandial diarrhea 5 months duration controlled with antidiarrheal without fever chills or GI bleeding. Suspect component of irritable bowel syndrome possibly exacerbated by recent caregiving in passing of daughter. Underlying infectious viral gastroenteritis microscopic colitis is felt to be less likely. Her symptoms of GI upset nausea vomiting could've been related to electrolyte imbalance hypo-magnesium. Last colonoscopy of record was February 2013 details of findings are not available at time of dictation but patient states a few polyps might have been removed. At this time patient is not interested in repeating endoscopic exams at this time. We'll request stool studies as well as Imodium 2 mg 4 times a day prn. Patient was advised instead of taking antidiarrheal as needed to take it on a daily basis starting with 1 tablet daily and titrating up to desired effect based on bowel movement habits; she is agreeable starting this once discharged. Will proceed with dietitian evaluation per patient request and openness. We'll request pre-albumin to assess nutritional status. Return to office in 3-[address] Neff for reevaluation and discussion of possible outpatient colonoscopy screening. Current Visit: Yes Status: Acute Code(s): K52.9 - NONINFECTIVE GA STROENTERITIS AND COLITIS, UNSPECIFIED SNOMED Code(s): 644342349 (2) History of DVT (deep vein thrombosis) Current Visit: Yes Status: Acute Code(s): Z86.718 - PERSONAL HISTORY OF OTHER VENOUS THROMBOSIS AND EMBOLISM SNOMED Code(s): 800949111 (3) History of pulmonary embolism Current Visit: Yes Status: Acute Code(s): Z86.711 - PERSONAL HISTORY OF PULM ONARY EMBOLISM SNOMED Code(s): 578400254 (4) Paroxysmal atrial fibrillation Current Visit: Yes Status: Acute Code(s): I48.0 - PAROXYSMAL ATRIAL FIBRILLATION SNOMED Code(s): 233067580 (5) Chronic anticoagulation Current Visit: Yes Status: Acute Code(s): Z79.01 - DIETARY WORKER (CURRENT) USE OF ANTICOAGULANTS SNOMED Code(s): 614011185 (6) Warfarin-induced coagulopathy Current Visit: Yes Status: Acute Code(s): D68.32 - HEMORRHAGIC DISORD D/T EXTRINSIC CIRCULATING ANTICOAGULANTS; T45.515A - ADVERSE EFFECT OF ANTICOAGULANTS, INITIAL ENCOUNTER SNOMED Code(s): 84050463 (7) Hypomagnesemia Current Visit: Yes Status: Acute Code(s): E83.42 - HYPOMAGNESEMIA SNOMED Code(s): 206876235 (8) Prolonged QT interval Current Visit: Yes Status: Acute Code(s): R94.31 - ABNORMAL ELECTROCARDIOGRAM [ECG] [EKG] SNOMED Code(s): 057782409 (9) Diverticulosis Current Visit: No Status: Acute Code(s): K57.90 - DVRTCLOS OF INTEST, PART UNSP, W/O PERF OR ABSCESS W/O BLEED SNOMED Code(s): 01456816 (10) Headache Current Visit: Yes Status: Acute Code(s): R51 - HEADACHE SNOMED Code(s): 76347063 Plan: 1. Agreeable for discharge. Prealbumin 12 recommend protein shakes 2-3 times a day. Advised Imodium 2 mg 3 times daily for control of diarrhea titrate for increased diarrhea. Return office in 2-3 weeks for reevaluation with Dr. Hall. Diet as tolerated. Patient is agreeable with this plan a care she has Imodium at home. Assessment and plan a care discussed with Dr. Villafuerte
--- NOTE | 2018-06-07 14:30 | P.DS ---
Providers Date of admission: 06/04/18 22:05 Expected date of discharge: 06/07/18 Attending physician: Mia Bailey Consults: 06/04/18 22:13 Consult Physician Routine Consulting Provider: Lamine Mills Consult Reason/Comments: prolonged qt Do you want consulting provider notified?: Yes 06/05/18 12:43 Consult Physician Routine Consulting Provider: Chris Villafuerte Consult Reason/Comments: persistent diarrhea with malnutrition Do you want consulting provider notified?: Yes Primary care physician: Jad Paulino [facility] Course: This is an 82-year-old pleasant lady patient of Dr. Guido and Dr. Paulino. She has underlying history of atrial fibrillation, prior PE in the past, with DVT, atrial fibrillation hyperlipidemia, hypertension, sleep apnea and hypothyroidism, chronic anticoagulation since her initial pulmonary emboli in 2009, follows by Dr. Cook/Thelma Nicholson for the pulmonary emboli. . She presented to the emergency room secondary to weakness, preceded by heada jennifer in the left side. She has some nausea without any vomiting, along with GI upset. She has chronic postprandial diarrhea for several years,, denied any abdominal pain, she had colonoscopy done by Dr. Moreno in the past, this is prior to 2013 patient was not diagnosed to have any collagenous colitis, or inflammatory bowel disease, however pathologies from that colonoscopy biopsy is not available for review. Patient denies any chest pain. She has intermittent palpitations, Emergency room, initial evaluation showed severe hypomagnesemia,level on admission of 0.8, EKG shows left bundle rosemary block in the 12-lead EKG, mild prolonged CA interval, QTC of 537 ms patient was seen in consultation with Dr. 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 No plan for any endoscopy at this point. Patient may follow- up in the office in 3-[address] Hall and possible outpatient colonoscopy. Patient's blood pressure is elevated this morning for which lisinopril has been added. No plan for any procedures the patient's Coumadin will be resumed and discontinue Lovenox. Levothyroxine increased as TSH is 5.590 and free T4 0.96. Plan is to monitor patient overnight and probable discharge tomorrow. Repeat magnesium is 2.1. 06/07: Patient has been afebrile, heart rate in the 60s, blood pressure 123/79, pulse ox 95% on room air. WBC is 6.7, hemoglobin 10.7, platelet count 223. INR 2.0. Electrolytes within normal limits, blood sugar 103. Patient will be continued on her home dose of Coumadin. The patient has been followed by GI with recommendations to continue Imodium. Patient is feeling well today and is requesting to go home. Multiple medication changes have been made during this hospitalization and new prescriptions have been sent to her pharmacy. Patient will be discharged home today in stable condition. Discharge diagnoses: 1. Critical hypomagnesemia secondary to diarrhea with prolonged QT interval ruled out by Dr. Vinson 2. Persistent postprandial diarrhea, possible gluten sensitivity against IBS diarrhea, with lactose intolerance, collagenous colitis cannot be ruled out 3. Headaches 3. CAD with CABG 3 vessel disease in 2012, history of cardiac stents with last one placed in 2010 graft 4. 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 History of pulmonary emboli 6. Proximal atrial fibrillation currently in sinus rhythm 7. Hyperlipidemia 8. Hypothyroidism 9. Obstructive sleep apnea on CPAP 10. History of PAD currently asymptomatic 11. Moderate protein calorie malnutrition with prealbumin of 12. Discharge plan: Home Impression and plan of care have been directed as dictated by the signing physician. Kristine Goldstein nurse practitioner acting as scribe for signing physician. Patient Condition at Discharge: Good Plan - Discharge Summary Discharge Rx Participant: No New Discharge Prescriptions: New Spironolactone [Aldactone] 25 mg PO DAILY #30 tab Loperamide [Imodium] 2 mg PO TID cap amLODIPine [Norvasc] 5 mg PO HS #30 tab Levothyroxine Sodium [Synthroid] 50 mcg PO DAILY@0630 #30 tab Lisinopril [Zestril] 20 mg PO DAILY #30 tab Continue Atenolol [Tenormin] 50 mg PO HS Pantoprazole Sodium [Protonix] 40 mg PO DAILY Warfarin Sodium 2.5 mg PO SUMOTUWETHFR Atorvastatin [Lipitor] 40 mg PO HS ALPRAZolam [Xanax] 1 mg PO HS PRN PRN Reason: Anxiety Warfarin [Coumadin] 5 mg PO SA Discontinued Levothyroxine Sodium [Synthroid] 25 mcg PO DAILY Discharge Medication List Atenolol [Tenormin] 50 mg PO HS 01/10/16 [History] Pantoprazole Sodium [Protonix] 40 mg PO DAILY 06/12/17 [History] Warfarin Sodium 2.5 mg PO SUMOTUWETHFR 11/16/17 [History] ALPRAZolam [Xanax] 1 mg PO HS PRN 06/04/18 [History] Atorvastatin [Lipitor] 40 mg PO HS 06/04/18 [History] Warfarin [Coumadin] 5 mg PO SA 06/04/18 [History] Levothyroxine Sodium [Synthroid] 50 mcg PO DAILY@0630 #30 tab 06/07/18 [Rx] Lisinopril [Zestril] 20 mg PO DAILY #30 tab 06/07/18 [Rx] Loperamide [Imodium] 2 mg PO TID cap 06/07/18 [Rx] Spironolactone [Aldactone] 25 mg PO DAILY #30 tab 06/07/18 [Rx] amLODIPine [Norvasc] 5 mg PO HS #30 tab 06/07/18 [Rx] Follow up Appointment(s)/Referral(s): Kike Hall MD [STAFF PHYSICIAN] - 07/01/18 2:45 pm (GI physician.) Jean-Claude Guido MD [STAFF PHYSICIAN] - 06/13/18 3:00 pm (Sunday appointment moved ) Jad Paulino DO [Primary Care Provider] - 1 Week (Office will call with follow up appointment.) Patient Instructions/Handouts: Acute Diarrhea (ED), Hypertension (DC), Hypomagnesemia (DC) Activity/Diet/Wound Care/Special Instructions: Imodium 2 mg 3 times a day may increase to 4 times a day. If diarrhea is still excessive after taking Imodium 2 mg 4 times a day please contact GI office for further direction.
[2018-06-07] MEDS ORDERED: LOPERAMIDE 2 MG CAP PO SCH (16:00)
[2018-06-08] MEDS ORDERED: WARFARIN 5 MG TAB PO SCH (18:00)
== END 2018-06-07 14:45 | disposition home or self-care (01) | DRG 641 ==
LOC: EC 20:19 → 3SCARD 22:05
PROVIDERS: ADMIT Family Medicine; ATTEND Family Medicine
DX: E83.42 Hypomagnesemia (principal); E44.0 Moderate protein-calorie malnutrition; D68.32 Hemorrhagic disorder due to extrinsic circulating anticoagulants; E86.0 Dehydration; I73.9 Peripheral vascular disease, unspecified; F41.9 Anxiety disorder, unspecified; E03.9 Hypothyroidism, unspecified; F32.9 Major depressive disorder, single episode, unspecified; I25.10 Atherosclerotic heart disease of native coronary artery without angina pectoris; G47.33 Obstructive sleep apnea (adult) (pediatric); I45.81 Long QT syndrome; K52.9 Noninfective gastroenteritis and colitis, unspecified; E78.5 Hyperlipidemia, unspecified; I10 Essential (primary) hypertension; I44.7 Left bundle-branch block, unspecified; K21.9 Gastro-esophageal reflux disease without esophagitis; K57.30 Diverticulosis of large intestine without perforation or abscess without bleeding; Z96.1 Presence of intraocular lens; T45.515A Adverse effect of anticoagulants, initial encounter; I48.0 Paroxysmal atrial fibrillation; Z79.01 Long term (current) use of anticoagulants; Z79.890 Hormone replacement therapy; Z79.899 Other long term (current) drug therapy; Z95.1 Presence of aortocoronary bypass graft; Z95.5 Presence of coronary angioplasty implant and graft; Z90.49 Acquired absence of other specified parts of digestive tract; Z86.711 Personal history of pulmonary embolism; Z99.89 Dependence on other enabling machines and devices; Z86.718 Personal history of other venous thrombosis and embolism; Z82.49 Family history of ischemic heart disease and other diseases of the circulatory system; Z80.0 Family history of malignant neoplasm of digestive organs; Z98.41 Cataract extraction status, right eye; Z98.42 Cataract extraction status, left eye
CPT/HCPCS: 36415; 70450; 80048; 80053; 83516; 83630; 83735; 83835; 84134; 84439; 84443; 84484; 85025; 85610; 85652; 86140; 87045; 87046; 87329; 93005; 96361; 96365; 96366; 96375; 99285

== ENCOUNTER 2018-09-10 09:52 | Emergency (ER) | payer MEDICARE, BC ==
[2018-09-10 09:56] VITALS: TEMP 97.7
[2018-09-10] MEDS ORDERED: SODIUM CHLORIDE 0.9% 1,000 ML IV STA (09:57)
[2018-09-10] MEDS ORDERED: SODIUM CHLORIDE 0.9% 500 ML 500 ML IV STA (09:57)
[2018-09-10 10:19] LABS: Basophils % (A) 0 %; Eosinophils # (A) 0.2 k/uL (0-0.7); Eosinophils % (A) 2 %; HCT 39.6 % (34.0-46.0); HGB 12.5 gm/dL (11.4-16.0); Lymphocytes # (A) 2.8 k/uL (1.0-4.8); Lymphocytes % (A) 27 %; MCH 29.4 pg (25.0-35.0); MCHC 31.7 g/dL (31.0-37.0); MCV 92.9 fL (80.0-100.0); Monocytes # (A) 0.4 k/uL (0-1.0); Monocytes % (A) 4 %; Neutrophils # (A) 6.8 k/uL (1.3-7.7); Neutrophils % (A) 66 %; Platelet Count 287 k/uL (150-450); RBC 4.26 m/uL (3.80-5.40); RDW 15.8 % (11.5-15.5); WBC 10.3 k/uL (3.8-10.6)
[2018-09-10 10:27] LABS: Albumin 4.4 g/dL (3.5-5.0); Calcium 9.3 mg/dL (8.4-10.2); Total Bilirubin 1.8 mg/dL (0.2-1.3); Total Protein 8.2 g/dL (6.3-8.2)
[2018-09-10 10:29] LABS: Potassium 4.1 mmol/L (3.5-5.1)
--- NOTE | 2018-09-10 10:40 | XR ---
EXAMINATION TYPE: XR KUB DATE OF EXAM: 09/10/2018 10:31 AM CLINICAL HISTORY: Diarrhea for one week. TECHNIQUE: Two Upright KUB images of the abdomen are obtained. COMPARISON: Abdominal x-ray August 01, 2017 FINDINGS: Gas is seen in nondistended stomach Scattered gas is seen in non-distended small bowel loop s. Gas and fecal material is seen in non-distended colon and rectum. Cholecystectomy clips are redemo nstrated. Moderate spurring and [id number] narrowing of both hip joints is redemonstrated. Mult ilevel spurring in the thoracolumbar spine is seen. There is partial visualization of sternal wires. There is overlying vascular calcification of aorta extending into splenic artery branch. Surgical cli ps just above gastroesophageal junction remain present. There is lateral left basilar opacity consist ent with infiltrate and/or atelectasis and probable small left pleural effusion. IMPRESSION: Overall nonobstructive bowel gas pattern remains present. Note made of lateral left basilar infiltrat e and/or atelectasis and possible small left pleural effusion.
--- NOTE | 2018-09-10 12:18 | ED ---
Nausea/Vomiting/Diarrhea HPI - General Chief complaint: Nausea/Vomiting/Diarrhea Stated complaint: Diarrhea Time Seen by Provider: 09/10/18 09:57 Source: patient Mode of arrival: ambulatory Limitations: no limitations - History of Present Illness Initial comments: 82-year-old female presenting today for chief complaint of diarrhea. Patient states she has had recent struggle with diarrhea chronically. She states it happened for over a month was followed by GI. She states did not perform a colonoscopy secondary to her age being over 80. With risk of perforation. Patient states she has no abdominal pain she denies melena hematochezia. Patient states she has had vomiting or fevers. Patient denies any recent travel. Patient states that the diarrhea began again Sunday. She denies any specific foods or patterns. Patient denies history of C. diff. Patient denies any recent antibiotic use or hospitalizations. Patient was concerned about di arrhea that it had returned. She states that she was unable to get an appointment with Dr. Hall so she felt she should come to the ER for evaluation instead. Remaining review of systems negative. Upon arrival patient's blood pressure elevated however she appears well. She states she just took her blood pressure medications. - Related Data Home Medications Medication Instructions Recorded Confirmed Atenolol [Tenormin] 50 mg PO HS 01/10/16 09/10/18 Pantoprazole Sodium [Protonix] 40 mg PO DAILY 06/12/17 09/10/18 Warfarin Sodium 2.5 mg PO SUMOTUWETHFR 11/16/17 09/10/18 Atorvastatin [Lipitor] 40 mg PO HS 06/04/18 09/10/18 Warfarin [Coumadin] 5 mg PO SA 06/04/18 09/10/18 Diphenoxylate HCl/Atropine 1 tab PO DAILY PRN 09/10/18 09/10/18 [Lomotil 2.5-0.025 mg Tablet] Magnesium Oxide [Mag-Ox] 400 mg PO DAILY 09/10/18 09/10/18 Nitroglycerin Sl Tabs [Nitrostat] 0.4 mg SUBLINGUAL Q5M PRN 09/10/18 09/10/18 Previous Rx's Medication Instructions Recorded Levothyroxine Sodium [Synthroid] 50 mcg PO DAILY@0630 #30 tab 06/07/18 Allergies Allergy/AdvReac Type Severity Reaction Status Date / Time No Known Allergies Allergy Verified 09/10/18 10:18 Review of Systems ROS Statement: Those systems with pertinent positive or pertinent negative responses have been documented in the HPI. ROS Other: All systems not noted in ROS Statement are negative. 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 History of Any Multi-Drug Resistant Organisms: None Reported Past Surgical History: Adenoidectomy, Breast Surgery, Cholecystectomy, Coronary Bypass/CABG, Heart Catheterization With Stent, Hernia Repair, Tonsillectomy Additional Past Surgical History / Comment(s): Cardiac caths with stent to proximal LAD in 2003 and stent to mid LAD 2010, 03/09/12 CABG-3 vessel, umbilical hernia repair, bilateral breast bx-R breast had chrystall removed, L caratid endartectomy, UVPPP, colonoscopy, hemorrhoidectomy, bilateral cataract removal with lens implants. Past Anesthesia/Blood Transfusion Reactions: No Reported Reaction Additional Past Anesthesia/Blood Transfusion Reaction / Comment(s): never recieved any blood in past. Date of Last Stent Placement:: 2010 Past Psychological History: Anxiety, Depression Smoking Status: Never smoker Past Alcohol Use History: None Reported Past Drug Use History: None Reported - Past Family History Father Family Medical History: Congestive Heart Failure (CHF), Coronary Artery Disease (CAD) Additional Family Medical History / Comment(s): Father at the age of 57yrs of CHF Mother Family Medical History: Cancer Additional Family Medical History / Comment(s): Mother had colon cancer. She l ived to be 89 1/2yrs old. Brother(s) History Unknown: Yes Sister(s) Family Medical History: Cancer Additional Family Medical History / Comment(s): Patient states sister from complications after open heart Daughter(s) History Unknown: Yes Additional Family Medical History / Comment(s): liver cancer General Exam - General Exam Comments Initial Comments: General: The patient is awake and alert, in no distress, and does not appear acutely ill. Eye: Pupils are equal, round and reactive to light, extra-ocular movements are intact. No nystagmus. There is normal conjunctiva bilaterally. No signs of icterus. Ears, nose, mouth and throat: There are moist mucous membranes and no oral lesions. Neck: The neck is supple, there is no tenderness or JVD. Cardiovascular: There is a regular rate and rhythm. No murmur, rub or gallop is appreciated. Respiratory: Lungs are clear to auscultation, respirations are non-labored, breath sounds are equal. No wheezes, stridor, rales, or rhonchi. Gastrointestinal: Soft, non-distended, non-tender abdomen without masses or organomegaly noted. There is no rebound or guarding present. No CVA tenderness. Bowel sounds are unremarkable. Musculoskeletal: Normal ROM, no tenderness. Strength 5/5. Sensation intact. Pulses equal bilaterally 2+. Neurological: A&O x 3. CN II-XII intact, There are no obvious motor or sensory deficits. Coordination appears grossly intact. Speech is normal. Skin: Skin is warm and dry and no rashes or lesions are noted. Psychiatric: Cooperative, appropriate mood & affect, normal judgment. Limitations: no limitations Course Vital Signs 09/10/18 09/10/18 09:54 12:27 Temperature 97.7 F Pulse Rate 85 71 Respiratory 20 17 Rate Blood Pressure 207/73 134/89 O2 Sat by Pulse 99 96 Oximetry Medical Decision Making - Medical Decision Making 82-year-old female presents today for chief complaint of diarrhea. Patient has no abdominal pain on examination. Appears well. No signs of dehydration on clinical examination. Laboratory studies appeared. Patient's baseline. The patient appears to have chronically elevated bilirubin, mild elevation. Patient has no upper abdominal pain. No leukocytosis. Patient unable to provide sample. No profuse or uncontrolled diarrhea in ER. Patient given IV hydration. Plain films reveal no obstructive process. At this time I do feel patient is stable for discharge with outpatient primary care follow-up for incidental pleural effusion finding and acute on chronic diarrhea. Patient is agreeable care plan discharge at this time. Patient discharged appearing well, after discussing case with my attending provider Dr. Warner. - Lab Data Result diagrams: 09/10/18 10:12 09/10/18 10:12 Lab Results 09/10/18 09/10/18 Range/Units 10:12 10:12 WBC 10.3 (3.8-10.6) k/uL RBC 4.26 (3.80-5.40) m/uL Hgb 12.5 (11.4-16.0) gm/dL Hct 39.6 (34.0-46.0) % MCV 92.9 (80.0-100.0) fL MCH 29.4 (25.0-35.0) pg MCHC 31.7 (31.0-37.0) g/dL RDW 15.8 H (11.5-15.5) % Plt Count 287 (150-450) k/uL Neutrophils % 66 % Lymphocytes % 27 % Monocytes % 4 % Eosinophils % 2 % Basophils % 0 % Neutrophils # 6.8 (1.3-7.7) k/uL Lymphocytes # 2.8 (1.0-4.8) k/uL Monocytes # 0.4 (0-1.0) k/uL Eosinophils # 0.2 (0-0.7) k/uL Basophils # 0.0 (0-0.2) k/uL Sodium 139 (137-145) mmol/L Potassium 4.1 (3.5-5.1) mmol/L Chloride 104 (98-107) mmol/L Carbon Dioxide 21 L (22-30) mmol/L Anion Gap 14 mmol/L BUN 22 H (7-17) mg/dL Creatinine 1.24 H (0.52-1.04) mg/dL Est GFR (CKD-EPI)AfAm 46 (>60 ml/min/1.73 sqM) Est GFR (CKD-EPI)NonAf 40 (>60 ml/min/1.73 sqM) Glucose 152 H (74-99) mg/dL Calcium 9.3 (8.4-10.2) mg/dL Total Bilirubin 1.8 H (0.2-1.3) mg/dL AST 32 (14-36) U/L ALT 17 (9-52) U/L Alkaline Phosphatase 63 (38-126) U/L Total Protein 8.2 (6.3-8.2) g/dL Albumin 4.4 (3.5-5.0) g/dL Lipase 330 H (23-300) U/L Disposition Clinical Impression: Chronic diarrhea, Diarrhea Disposition: HOME SELF-CARE Condition: Good Instructions (If sedation given, give patient instructions): Acute Diarrhea (ED) Additional Instructions: Please use medication as discussed. Please follow-up with family doctor in the next 2 days, and GI as discussed. Please return to emergency room if the symptoms increase or worsen or for any other concerns. Is patient prescribed a controlled substance at d/c from ED?: No Referrals: Jad Paulino DO [Primary Care Provider] - 1-2 days America Irving MD [STAFF PHYSICIAN] - 1-2 days Time of Disposition: 12:18
[2018-09-10 12:28] VITALS: BP 134/89; PULSE 71; RESP 17
[2018-09-10 12:52] LABS: Appearance,Urine Cloudy (Clear); Bacteria,Urine Rare /hpf; Bilirubin,Urine Negative (Negative); Blood,Urine Moderate (Negative); Color,Urine Light Yellow; Glucose,Urine (UA) Negative (Negative); Ketones,Urine Negative (Negative); Leukocyte Esterase,Urine Large (Negative); Mucus,Urine Rare /hpf; Nitrite,Urine Negative (Negative); PH, Urine 5.5 (5.0-8.0); Protein,Urine Trace (Negative); RBC,Urine 8 /hpf (0-5); Specific Gravity,Urine 1.008 (1.001-1.035); Squamous Epithelial Cell,Urine 1 /hpf (0-4); Urobilinogen,Urine <2.0 mg/dL (<2.0); WBC,Urine 181 /hpf (0-5)
== END 2018-09-10 13:15 | disposition home or self-care (01) ==
LOC: EC 09:52
DX: K52.9 Noninfective gastroenteritis and colitis, unspecified (principal); I48.91 Unspecified atrial fibrillation; K21.9 Gastro-esophageal reflux disease without esophagitis; E78.5 Hyperlipidemia, unspecified; I10 Essential (primary) hypertension; G47.33 Obstructive sleep apnea (adult) (pediatric); Z79.01 Long term (current) use of anticoagulants; Z79.899 Other long term (current) drug therapy; Z95.1 Presence of aortocoronary bypass graft; Z95.5 Presence of coronary angioplasty implant and graft
CPT/HCPCS: 36415; 74018; 80053; 81001; 83690; 85025; 96360; 96361; 99284

== ENCOUNTER 2018-11-07 07:10 | Emergency (ER) | payer MEDICARE, BC ==
[2018-11-07 07:18] VITALS: TEMP 98.3
--- NOTE | 2018-11-07 07:40 | ED ---
General Adult HPI - General Chief complaint: Shortness of Breath Stated complaint: FARZAD Time Seen by Provider: 11/07/18 07:19 Source: patient, family, RN notes reviewed Mode of arrival: ambulatory Limitations: no limitations - History of Present Illness Initial comments: Patient is a pleasant 83-year-old female presenting to the emergency Department with complaints of difficulty breathing. Onset of symptoms was yesterday. Symptoms worsened today. Patient complains of congestion in her throat and her nose. Patient states breathing is somewhat worse with lying down as well as exertion. Mild cough. No fevers. No chest pain. No history of similar symptoms previously. Patient states blood pressure is always high. - Related Data Home Medications Medication Instructions Recorded Confirmed Atenolol [Tenormin] 50 mg PO HS 01/10/16 11/07/18 Pantoprazole Sodium [Protonix] 40 mg PO DAILY 06/12/17 11/07/18 Warfarin Sodium 2.5 mg PO SUMOTUWETHFR 11/16/17 11/07/18 Warfarin [Coumadin] 5 mg PO SA 06/04/18 11/07/18 Diphenoxylate HCl/Atropine 1 tab PO DAILY PRN 09/10/18 11/07/18 [Lomotil 2.5-0.025 mg Tablet] Nitroglycerin Sl Tabs [Nitrostat] 0.4 mg SUBLINGUAL Q5M PRN 09/10/18 11/07/18 ALPRAZolam [Xanax] 1 mg PO TID PRN 11/07/18 11/07/18 Aspirin EC [Ecotrin Low Dose] 162 mg PO DAILY 11/07/18 11/07/18 Atorvastatin [Lipitor] 80 mg PO HS 11/07/18 11/07/18 Previous Rx's Medication Instructions Recorded Levothyroxine Sodium [Synthroid] 50 mcg PO DAILY@0630 #30 tab 06/07/18 Allergies Allergy/AdvReac Type Severity Reaction Status Date / Time No Known Allergies Allergy Verified 11/07/18 09:33 Review of Systems ROS Statement: Those systems with pertinent positive or pertinent negative responses have been documented in the HPI. ROS Other: All systems not noted in ROS Statement are negative. Constitutional: Denies: fever Eyes: Denies: eye pain ENT: Denies: ear pain Respiratory: Reports: cough, dyspnea Cardiovascular: Denies: chest pain Endocrine: Denies: fatigue Gastrointestinal: Denies: abdominal pain Genitourinary: Denies: dysuria Musculoskeletal: Denies: back pain Skin: Denies: rash Neurological: Denies: weakness Past Medical History Past Medical History: Atrial Fibrillation, Chest Pain / Angina, Deep Vein Thrombosis (DVT), GERD/Reflux, Hyperlipidemia, Hypertension, Pulmonary Embolus (PE), Sleep Apnea/CPAP/BIPAP, Thyroid Disorder, Vascular Disorder Additional Past Medical History / Comment(s): KRISTY with CPAP use, hypothyroid, PE (pt cannot recall laterality), R arm DVT, post operative afib, 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 History of Any Multi-Drug Resistant Organisms: None Reported Past Surgical History: Adenoidectomy, Breast Surgery, Cholecystectomy, Coronary Bypass/CABG, Heart Catheterization With Stent, Hernia Repair, Tonsillectomy Additional Past Surgical History / Comment(s): Cardiac caths with stent to proximal LAD in 2003 and stent to mid LAD 2010, 03/09/12 CABG-3 vessel, umbilical hernia repair, bilateral breast bx-R breast had chrystall removed, L caratid endartectomy, UVPPP, colonoscopy, hemorrhoidectomy, bilateral cataract removal with lens implants. Past Anesthesia/Blood Transfusion Reactions: No Reported Reaction Additional Past Anesthesia/Blood Transfusion Reaction / Comment(s): never recieved any blood in past. Date of Last Stent Placement:: 2010 Past Psychological History: Anxiety, Depression Smoking Status: Never smoker Past Alcohol Use History: None Reported Past Drug Use History: None Reported - Past Family History Father Family Medical History: Congestive Heart Failure (CHF), Coronary Artery Disease (CAD) Additional Family Medical History / Comment(s): Father at the age of 57yrs of CHF Mother Family Medical History: Cancer Additional Family Medical History / Comment(s): Mother had colon cancer. She lived to be 89 1/2yrs old. Brother(s) History Unknown: Yes Sister(s) Family Medical History: Cancer Additional Family Medical History / Comment(s): Patient states sister from complications after open heart Daughter(s) History Unknown: Yes Additional Family Medical History / Comment(s): liver cancer General Exam Limitations: no limitations General appearance: alert, in no apparent distress Head exam: Present: atraumatic Eye exam: Present: normal appearance, PERRL ENT exam: Present: normal oropharynx Neck exam: Present: normal inspection Respiratory exam: Present: normal lung sounds bilaterally. Absent: chest wall tenderness Cardiovascular Exam: Present: regular rate, normal rhythm Expanded Peripheral pulses: 2+: Radial (R), Radial (L), Dorsalis Pedis (R), Dorsalis Pedis (L) GI/Abdominal exam: Present: soft. Absent: tenderness Extremities exam: Present: normal inspection. Absent: pedal edema, calf tenderness Neurological exam: Present: alert Psychiatric exam: Present: normal affect, normal mood Skin exam: Present: normal color Course Vital Signs 11/07/18 11/07/18 11/07/18 07:15 07:50 08:00 Temperature 98.3 F Pulse Rate 77 Respiratory 24 23 Rate Blood Pressure 205/146 194/96 O2 Sat by Pulse 96 91 L 92 L Oximetry 11/07/18 11/07/18 11/07/18 09:00 09:30 10:00 Temperature Pulse Rate 72 73 71 Respiratory Rate Blood Pressure 177/78 158/74 161/77 O2 Sat by Pulse 96 97 97 Oximetry 11/07/18 11/07/18 10:30 11:00 Temperature Pulse Rate 73 67 Respiratory Rate Blood Pressure 171/73 178/87 O2 Sat by Pulse 94 L 94 L Oximetry EKG Findings - EKG Comments: EKG Findings:: Sinus rhythm at 77. For screening AV block [place] of 228. QRS 84. QT 406. QTc 459. Left axis. LVH criteria. No acute ST change. Medical Decision Making - Medical Decision Making Patient reevaluated and resting comfortably in bed. Patient states symptoms now resolved. Patient and family updated on results. Patient is comfortable dis charge home. Patient does not feel she needs antibiotics for her sinuses. - Lab Data Result diagrams: 11/07/18 07:46 11/07/18 07:46 Lab Results 11/07/18 11/07/18 11/07/18 Range/Units 07:46 07:46 07:46 WBC 10.9 H (3.8-10.6) k/uL RBC 4.18 (3.80-5.40) m/uL Hgb 12.9 (11.4-16.0) gm/dL Hct 39.3 (34.0-46.0) % MCV 94.1 (80.0-100.0) fL MCH 30.8 (25.0-35.0) pg MCHC 32.8 (31.0-37.0) g/dL RDW 16.7 H (11.5-15.5) % Plt Count 283 (150-450) k/uL Neutrophils % 71 % Lymphocytes % 20 % Monocytes % 5 % Eosinophils % 2 % Basophils % 1 % Neutrophils # 7.7 (1.3-7.7) k/uL Lymphocytes # 2.2 (1.0-4.8) k/uL Monocytes # 0.5 (0-1.0) k/uL Eosinophils # 0.2 (0-0.7) k/uL Basophils # 0.1 (0-0.2) k/uL Anisocytosis Slight PT 22.5 H (9.0-12.0) sec INR 2.3 H (<1.2) APTT 34.7 H (22.0-30.0) sec D-Dimer 0.34 (<0.60) mg/L FEU Sodium 139 (137-145) mmol/L Potassium 4.1 (3.5-5.1) mmol/L Chloride 103 (98-107) mmol/L Carbon Dioxide 22 (22-30) mmol/L Anion Gap 14 mmol/L BUN 21 H (7-17) mg/dL Creatinine 1.31 H (0.52-1.04) mg/dL Est GFR (CKD-EPI)AfAm 43 (>60 ml/min/1.73 sqM) Est GFR (CKD-EPI)NonAf 37 (>60 ml/min/1.73 sqM) Glucose 143 H (74-99) mg/dL Calcium 9.6 (8.4-10.2) mg/dL Total Bilirubin 1.8 H (0.2-1.3) mg/dL AST 34 (14-36) U/L ALT 27 (9-52) U/L Alkaline Phosphatase 69 (38-126) U/L Troponin I (0.000-0.034) ng/mL NT-Pro-B Natriuret Pep pg/mL Total Protein 7.9 (6.3-8.2) g/dL Albumin 4.2 (3.5-5.0) g/dL 11/07/18 11/07/18 Range/Units 07:46 07:46 WBC (3.8-10.6) k/uL RBC (3.80-5.40) m/uL Hgb (11.4-16.0) gm/dL Hct (34.0-46.0) % MCV (80.0-100.0) fL MCH (25.0-35.0) pg MCHC (31.0-37.0) g/dL RDW (11.5-15.5) % Plt Count (150-450) k/uL Neutrophils % % Lymphocytes % % Monocytes % % Eosinophils % % Basophils % % Neutrophils # (1.3-7.7) k/uL Lymphocytes # (1.0-4.8) k/uL Monocytes # (0-1.0) k/uL Eosinophils # (0-0.7) k/uL Basophils # (0-0.2) k/uL Anisocytosis PT (9.0-12.0) sec INR (<1.2) APTT (22.0-30.0) sec D-Dimer (<0.60) mg/L FEU Sodium (137-145) mmol/L Potassium (3.5-5.1) mmol/L Chloride (98-107) mmol/L Carbon Dioxide (22-30) mmol/L Anion Gap mmol/L BUN (7-17) mg/dL Creatinine (0.52-1.04) mg/dL Est GFR (CKD-EPI)AfAm (>60 ml/min/1.73 sqM) Est GFR (CKD-EPI)NonAf (>60 ml/min/1.73 sqM) Glucose (74-99) mg/dL Calcium (8.4-10.2) mg/dL Total Bilirubin (0.2-1.3) mg/dL AST (14-36) U/L ALT (9-52) U/L Alkaline Phosphatase (38-126) U/L Troponin I <0.012 (0.000-0.034) ng/mL NT-Pro-B Natriuret Pep 912 pg/mL Total Protein (6.3-8.2) g/dL Albumin (3.5-5.0) g/dL - Radiology Data Radiology results: image reviewed (Chest x-ray shows no acute process) Disposition Clinical Impression: Dyspnea, Upper respiratory infection Disposition: HOME SELF-CARE Condition: Stable Instructions (If sedation given, give patient instructions): Upper Respiratory Infection (ED), Sinusitis (ED), Heart Failure (DC), Dyspnea (ED) Additional Instructions: Please follow-up with primary care physician in the next couple of days for recheck. Return for difficulty breathing, chest pain, fevers, worsening symptoms or other concerns. [id number] Flonase or [id number] Claritin as needed. Is patient prescribed a controlled substance at d/c from ED?: No Referrals: Jad Paulino DO [Primary Care Provider] - 1-2 days Time of Disposition: 13:47
[2018-11-07 08:14] LABS: Anisocytosis Slight; Basophils # (A) 0.1 k/uL (0-0.2); Basophils % (A) 1 %; Eosinophils # (A) 0.2 k/uL (0-0.7); Eosinophils % (A) 2 %; HCT 39.3 % (34.0-46.0); HGB 12.9 gm/dL (11.4-16.0); Lymphocytes # (A) 2.2 k/uL (1.0-4.8); Lymphocytes % (A) 20 %; MCH 30.8 pg (25.0-35.0); MCHC 32.8 g/dL (31.0-37.0); MCV 94.1 fL (80.0-100.0); Mean Platelet Volume 7.8; Monocytes # (A) 0.5 k/uL (0-1.0); Monocytes % (A) 5 %; Neutrophils # (A) 7.7 k/uL (1.3-7.7); Neutrophils % (A) 71 %; Platelet Count 283 k/uL (150-450); RBC 4.18 m/uL (3.80-5.40); RDW 16.7 % (11.5-15.5); WBC 10.9 k/uL (3.8-10.6)
[2018-11-07 08:27] LABS: D-Dimer 0.34 mg/L FEU (<0.60); INR 2.3 (<1.2); Partial Thromboplastin Time 34.7 sec (22.0-30.0); Prothrombin Time 22.5 sec (9.0-12.0)
[2018-11-07 08:33] LABS: Albumin 4.2 g/dL (3.5-5.0); Calcium 9.6 mg/dL (8.4-10.2); Potassium 4.1 mmol/L (3.5-5.1); Total Bilirubin 1.8 mg/dL (0.2-1.3); Total Protein 7.9 g/dL (6.3-8.2)
--- NOTE | 2018-11-07 13:35 | XR ---
EXAMINATION TYPE: XR chest 2V DATE OF EXAM: 11/07/2018 COMPARISON: Chest x-ray January 04, 2018. HISTORY: Shortness of breath and hypertension. TECHNIQUE: Frontal and lateral views of the chest are obtained. FINDINGS: Overlying sternal wires and mediastinal clips are redemonstrated. There is chronic parench ymal change without suspicious new focal air space opacity, pleural effusion, or pneumothorax seen. L eft basilar linear scarring and/or atelectasis laterally is redemonstrated. The cardiac silhouette si ze remains within normal limits with atherosclerotic thoracic aorta. The osseous structures are dem ineralized. Cholecystectomy clips are redemonstrated. IMPRESSION: Chronic changes without new suspicious acute pulmonary process.
[2018-11-07 14:14] VITALS: BP 136/71; PULSE 76; RESP 16
== END 2018-11-07 14:13 | disposition home or self-care (01) ==
LOC: EC 07:10
DX: J06.9 Acute upper respiratory infection, unspecified (principal); I48.91 Unspecified atrial fibrillation; I20.9 Angina pectoris, unspecified; K21.9 Gastro-esophageal reflux disease without esophagitis; I10 Essential (primary) hypertension; E78.5 Hyperlipidemia, unspecified; F41.9 Anxiety disorder, unspecified; F32.9 Major depressive disorder, single episode, unspecified; G47.33 Obstructive sleep apnea (adult) (pediatric); M17.0 Bilateral primary osteoarthritis of knee; Z79.01 Long term (current) use of anticoagulants; Z79.82 Long term (current) use of aspirin; Z79.899 Other long term (current) drug therapy; Z95.1 Presence of aortocoronary bypass graft; Z86.711 Personal history of pulmonary embolism; Z95.5 Presence of coronary angioplasty implant and graft; Z98.41 Cataract extraction status, right eye; Z98.42 Cataract extraction status, left eye; Z96.1 Presence of intraocular lens; Z99.89 Dependence on other enabling machines and devices
CPT/HCPCS: 36415; 71046; 80053; 83880; 84484; 85025; 85379; 85610; 85730; 93005; 99285

== ENCOUNTER 2018-12-10 10:16 | Emergency (ER) | payer MEDICARE, BC ==
[2018-12-10 10:40] VITALS: TEMP 98.4
[2018-12-10] MEDS ORDERED: IPRATROPIUM-ALBUTEROL 3 ML NEB INHALATION STA (11:40)
[2018-12-10] MEDS ORDERED: methylPREDNISolone SOD SUCCI 125 MG/2 ML VIAL IV STA (11:40)
--- NOTE | 2018-12-10 12:29 | XR ---
EXAMINATION TYPE: XR chest 2V DATE OF EXAM: 12/10/2018 COMPARISON: Prior chest x-ray 11/07/2018 HISTORY: Cough and congestion TECHNIQUE: Frontal and lateral views of the chest are obtained. FINDINGS: The patient is rotated. Patient is post median sternotomy. Probable scarring present at the left costophrenic angle as on prior exam. Aorta is dense. Prominent lung lines suggest underlying CO PD. Bone mineralization is reduced. There are coronary artery calcifications. There is no focal air s pace opacity, pleural effusion, or pneumothorax seen. The cardiac silhouette size is within normal l imits. The osseous structures are intact. IMPRESSION: No acute cardiopulmonary process.
[2018-12-10 12:56] LABS: Basophils # (A) 0.1 k/uL (0-0.2); Basophils % (A) 1 %; Eosinophils # (A) 0.2 k/uL (0-0.7); Eosinophils % (A) 1 %; HCT 41.2 % (34.0-46.0); HGB 12.6 gm/dL (11.4-16.0); Lymphocytes # (A) 2.5 k/uL (1.0-4.8); Lymphocytes % (A) 22 %; MCH 29.4 pg (25.0-35.0); MCHC 30.7 g/dL (31.0-37.0); MCV 95.7 fL (80.0-100.0); Mean Platelet Volume 7.1; Monocytes # (A) 0.5 k/uL (0-1.0); Monocytes % (A) 5 %; Neutrophils # (A) 7.9 k/uL (1.3-7.7); Neutrophils % (A) 69 %; Platelet Count 272 k/uL (150-450); RBC 4.31 m/uL (3.80-5.40); RDW 15.3 % (11.5-15.5); WBC 11.3 k/uL (3.8-10.6)
[2018-12-10 13:09] LABS: Albumin 4.2 g/dL (3.5-5.0); Calcium 9.2 mg/dL (8.4-10.2); Total Bilirubin 1.7 mg/dL (0.2-1.3); Total Protein 8.2 g/dL (6.3-8.2)
[2018-12-10 13:10] LABS: Potassium 4.8 mmol/L (3.5-5.1)
--- NOTE | 2018-12-10 14:07 | ED ---
URI HPI - General Chief Complaint: Upper Respiratory Infection Stated Complaint: cough/chest congestion Source: patient Mode of arrival: ambulatory Limitations: no limitations - History of Present Illness Initial Comments: The patient is an 83-year-old female who presents emergency Department with reported cough. She states that the symptoms have been present since Sunday. She believes she contracted a cold from the grocery store. Reports that she has had a nonproductive cough. It is worse at night when she lays down. She denies feeling short of breath. No history of underlying lung conditions to include COPD or asthma. She denies any fevers or chills. No nausea or vomiting. Denies any chest pain. Ripping or tearing sensation to her back. Denies any abdominal pain. No hemoptysis. No history of DVT or PE. Denies palpitations. She has been using cough syrup [id number] however it has been helping her cough. There are no other alleviating, hand candle dipper or modifying factors - Related Data Home Medications Medication Instructions Recorded Confirmed Atenolol [Tenormin] 50 mg PO BID 01/10/16 12/10/18 Pantoprazole Sodium [Protonix] 40 mg PO DAILY 06/12/17 12/10/18 Warfarin Sodium 2.5 mg PO SUMOTUWETHFR 11/16/17 12/10/18 Warfarin [Coumadin] 5 mg PO SA 06/04/18 12/10/18 Nitroglycerin Sl Tabs [Nitrostat] 0.4 mg SUBLINGUAL Q5M PRN 09/10/18 12/10/18 ALPRAZolam [Xanax] 1 mg PO TID PRN 11/07/18 12/10/18 Atorvastatin [Lipitor] 80 mg PO HS 11/07/18 12/10/18 Magnesium Oxide [Ramirez] 500 mg PO DAILY 12/10/18 12/10/18 Previous Rx's Medication Instructions Recorded Levothyroxine Sodium [Synthroid] 50 mcg PO DAILY@0630 #30 tab 06/07/18 Albuterol Sulfate [Proair Hfa] 1 - 2 puff INHALATION Q4HR PRN #1 12/10/18 inhaler Azithromycin [Zithromax Z-pack] 250 mg PO DIRECTED #1 pack 12/10/18 Codeine Phosphate/Guaifenesin 10 ml PO Q8HR PRN #180 ml 12/10/18 [Guaiatussin AC Liquid] predniSONE 20 mg PO BID #10 tab 12/10/18 Allergies Allergy/AdvReac Type Severity Reaction Status Date / Time No Known Allergies Allergy Verified 12/10/18 10:59 Review of Systems ROS Statement: Those systems with pertinent positive or pertinent negative responses have been documented in the HPI. ROS Other: All systems not noted in ROS Statement are negative. 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 History of Any Multi-Drug Resistant Organisms: None Reported Past Surgical History: Adenoidectomy, Breast Surgery, Cholecystectomy, Coronary Bypass/CABG, Heart Catheterization With Stent, Hernia Repair, Tonsillectomy Additional Past Surgical History / Comment(s): Cardiac caths with stent to proximal LAD in 2003 and stent to mid LAD 2010, 03/09/12 CABG-3 vessel, umbilical hernia repair, bilateral breast bx-R breast had chrystall removed, L caratid endartectomy, UVPPP, colonoscopy, hemorrhoidectomy, bilateral cataract removal with lens implants. Past Anesthesia/Blood Transfusion Reactions: No Reported Reaction Additional Past Anesthesia/Blood Transfusion Reaction / Comment(s): never recieved any blood in past. Date of Last Stent Placement:: 2010 Past Psychological History: Anxiety, Depression Smoking Status: Never smoker Past Alcohol Use History: None Reported Past Drug Use History: None Reported - Past Family History Father Family Medical History: Congestive Heart Failure (CHF), Coronary Artery Disease (CAD) Additional Family Medical History / Comment(s): Father at the age of 57yrs of CHF Mother Family Medical History: Cancer Additional Family Medical History / Comment(s): Mother had colon cancer. She lived to be 89 1/2yrs old. Brother(s) History Unknown: Yes Sister(s) Family Medical History: Cancer Additional Family Medical History / Comment(s): Patient states sister from complications after open heart Daughter(s) History Unknown: Yes Additional Family Medical History / Comment(s): liver cancer General Exam Limitations: no limitations Course Vital Signs 12/10/18 12/10/18 12/10/18 10:38 11:10 12:36 Temperature 98.4 F Pulse Rate 76 78 Respiratory 18 20 Rate Blood Pressure 136/74 O2 Sat by Pulse 95 Oximetry 12/10/18 12/10/18 12/10/18 12:48 13:24 14:28 Temperature Pulse Rate 78 70 87 Respiratory 18 16 Rate Blood Pressure 140/66 155/82 O2 Sat by Pulse 93 L 99 Oximetry Medical Decision Making - Medical Decision Making Upon arrival the patient was placed into room 8. A thorough history and physical exam is performed. I did recommend a DuoNeb breathing treatment for which the patient did agree to. Also conducted laboratory studies and sent the patient for chest x-ray. White blood cell count is 11.3. Creatinine is 1.17 which is at the patient's baseline. Influenza is not detected. Chest x-ray demonstrates no acute cardio pulmonary process. Discussed the results with the patient. The she remains 94% on room air. No signs of respiratory distress. Patient states that she feels fine at this time. I did recommend treatment with an albuterol inhaler, steroid pack and a Z-Juan. The patient is requesting cough syrup and therefore I did give her a prescriptive for cough syrup. The side effect profile discuss with the patient. She is to not work or drive while taking the medications. She does sign an opiate start talking form. The patient was given a dose of steroids through her IV. She needs to follow-up with her primary care physician in 2-4 days. Return to the emergency room with any new or worsening symptoms. The patient agreed treatment plan and was discha rged home in stable condition - Lab Data Result diagrams: 12/10/18 12:35 12/10/18 12:35 Lab Results 12/10/18 12/10/18 12/10/18 Range/Units 12:35 12:35 12:35 WBC 11.3 H (3.8-10.6) k/uL RBC 4.31 (3.80-5.40) m/uL Hgb 12.6 (11.4-16.0) gm/dL Hct 41.2 (34.0-46.0) % MCV 95.7 (80.0-100.0) fL MCH 29.4 (25.0-35.0) pg MCHC 30.7 L (31.0-37.0) g/dL RDW 15.3 (11.5-15.5) % Plt Count 272 (150-450) k/uL Neutrophils % 69 % Lymphocytes % 22 % Monocytes % 5 % Eosinophils % 1 % Basophils % 1 % Neutrophils # 7.9 H (1.3-7.7) k/uL Lymphocytes # 2.5 (1.0-4.8) k/uL Monocytes # 0.5 (0-1.0) k/uL Eosinophils # 0.2 (0-0.7) k/uL Basophils # 0.1 (0-0.2) k/uL Sodium 138 (137-145) mmol/L Potassium 4.8 (3.5-5.1) mmol/L Chloride 104 (98-107) mmol/L Carbon Dioxide 23 (22-30) mmol/L Anion Gap 11 mmol/L BUN 19 H (7-17) mg/dL Creatinine 1.17 H (0.52-1.04) mg/dL Est GFR (CKD-EPI)AfAm 49 (>60 ml/min/1.73 sqM) Est GFR (CKD-EPI)NonAf 43 (>60 ml/min/1.73 sqM) Glucose 115 H (74-99) mg/dL Calcium 9.2 (8.4-10.2) mg/dL Total Bilirubin 1.7 H (0.2-1.3) mg/dL AST 33 (14-36) U/L ALT 22 (9-52) U/L Alkaline Phosphatase 75 (38-126) U/L Total Protein 8.2 (6.3-8.2) g/dL Albumin 4.2 (3.5-5.0) g/dL Influenza Type A RNA Not Detected (Not Detectd) Influenza Type B (PCR) Not Detected (Not Detectd) Disposition Clinical Impression: Cough Disposition: HOME SELF-CARE Condition: Stable Instructions (If sedation given, give patient instructions): Upper Respiratory Infection (ED) Additional Instructions: Please follow up with your primary care doctor in 2-4 days. Return to the emergency for any new or worsening symptoms Prescriptions: Codeine Phosphate/Guaifenesin [Guaiatussin AC Liquid] 10 ml PO Q8HR PRN #180 ml PRN Reason: cough predniSONE 20 mg PO BID #10 tab Albuterol Sulfate [Proair Hfa] 1 - 2 puff INHALATION Q4HR PRN #1 inhaler PRN Reason: difficulty in breathing Azithromycin [Zithromax Z-pack] 250 mg PO DIRECTED #1 pack Is patient prescribed a controlled substance at d/c from ED?: Yes When asked, does pt state using other controlled substances?: No If prescribed controlled substance>3 days was MAPS reviewed?: Prescribed <3 Days If opioid is for acute pain is fill amount 7 days or less?: Yes If Rx opioid, was Start Talking consent form obtained?: Yes Referrals: Jad Paulino DO [Primary Care Provider] - 1-2 days Time of Disposition: 14:07
[2018-12-10 14:31] VITALS: BP 155/82; PULSE 87; RESP 16
== END 2018-12-10 14:30 | disposition home or self-care (01) ==
LOC: EC 10:16
DX: R05 Cough (principal); R09.81 Nasal congestion; I48.91 Unspecified atrial fibrillation; I10 Essential (primary) hypertension; K21.9 Gastro-esophageal reflux disease without esophagitis; E78.5 Hyperlipidemia, unspecified; E03.9 Hypothyroidism, unspecified; G47.33 Obstructive sleep apnea (adult) (pediatric); F41.9 Anxiety disorder, unspecified; F32.9 Major depressive disorder, single episode, unspecified; Z79.01 Long term (current) use of anticoagulants; Z79.899 Other long term (current) drug therapy; Z95.5 Presence of coronary angioplasty implant and graft; Z95.1 Presence of aortocoronary bypass graft
CPT/HCPCS: 36415; 94640; 80053; 85025; 87502; 71046; 99284; 96374; J2930

== ENCOUNTER 2019-01-30 12:57 | Emergency (ER) | payer MEDICARE, BC ==
[2019-01-30 13:02] VITALS: RESP 16
[2019-01-30 13:57] LABS: INR 2.4 (<1.2)
--- NOTE | 2019-01-30 14:03 | XR ---
EXAMINATION TYPE: XR shoulder complete RT DATE OF EXAM: 01/30/2019 COMPARISON: NONE HISTORY: Pain TECHNIQUE: Three views are submitted. FINDINGS: The osseous structures are intact. There is no acute fracture or dislocation. Diffuse osteopenia wit h severe arthropathy of the AC joint with spurring. Right lung clear. Sternotomy wires noted. IMPRESSION: 1. Severe AC joint arthropathy with hypertrophic spurring. If there is concern for rotator cuff disea se correlate with MRI.
--- NOTE | 2019-01-30 14:19 | CT ---
EXAMINATION TYPE: CT brain cspine wo con DATE OF EXAM: 01/30/2019 COMPARISON: 06/04/2018 HISTORY: Fall with subsequent head and neck pain CT DLP: 1261.5 mGycm. Automated Exposure Control for Dose Reduction was Utilized. TECHNIQUE: CT scan of the head and cervical spine are performed without contrast. FINDINGS: There is no acute intracranial hemorrhage, mass effect, or midline shift identified. . Pa tchy areas of hypoattenuation are seen within the periventricular white matter most commonly on the b asis of chronic microangiopathy. Curvilinear calcifications along the falx were present on the prior. The ventricles and sulci are symmetrically prominent compatible with age-related volume loss. Dystro phic calcifications of the basal ganglia are noted. The visualized sinuses demonstrate polypoid mucos al retention cyst versus polyp measuring 8 mm on the left maxillary sinus but are otherwise clear. Sc leral band is seen on the left. There is mild vertebral body height loss of the C7 vertebral body of approximately 20%. No retropulsi on. No malalignment. Remainder of the cervical spine vertebral bodies maintain normal vertebral body heights. Prevertebral soft tissue appears within normal limits. Extensive multilevel degenerative di sc disease as there is extensive facet arthropathy and uncovertebral hypertrophy. Spinal canal is rodriguez ited on CT however no high-grade spinal canal stenosis is seen. The C1-C2 articulation is unremarkabl e. Calcified biapical pleural-parenchymal scarring. Parotid glands demonstrate numerous calcificatio ns on the right and few punctate calcifications on the left. Venous varicosities are incidentally not ed. IMPRESSION: 1. Age-indeterminate mild compression deformity of the C7 vertebral body with height loss of approxim ately 20% and no retropulsion. Correlate for point tenderness as there is no abnormal prevertebral so ft tissue swelling at this level. 2. No acute intracranial hemorrhage, mass effect, or midline shift is seen.
--- NOTE | 2019-01-30 14:25 | ED ---
Fall HPI - General Chief Complaint: Fall Stated Complaint: Fall Time Seen by Provider: 01/30/19 13:09 Source: patient Mode of arrival: wheelchair Limitations: no limitations - History of Present Illness Initial Comments: 83-year-old female presents emergency Department chief complaint of trip and fall. Patient states that she tripped over a feet fell striking her right elbow, right shoulder. Patient states that she primarily has right shoulder pain. She states that she bumped her head minimally but states that she has no marked she has no headache no dizziness no blurred vision or focal weakness. Patient denies neck pain, back pain, abdominal pain. Patient does admit that she takes Coumadin. Patient does not know her last INR. She denies any excessive bleeding no abdominal pain no rectal bleeding no hematuria. - Related Data Home Medications Medication Instructions Recorded Confirmed Atenolol [Tenormin] 50 mg PO BID 01/10/16 12/10/18 Pantoprazole Sodium [Protonix] 40 mg PO DAILY 06/12/17 12/10/18 Warfarin Sodium 2.5 mg PO SUMOTUWETHFR 11/16/17 12/10/18 Warfarin [Coumadin] 5 mg PO SA 06/04/18 12/10/18 Nitroglycerin Sl Tabs [Nitrostat] 0.4 mg SUBLINGUAL Q5M PRN 09/10/18 12/10/18 ALPRAZolam [Xanax] 1 mg PO TID PRN 11/07/18 12/10/18 Atorvastatin [Lipitor] 80 mg PO HS 11/07/18 12/10/18 Magnesium Oxide [Ramirez] 500 mg PO DAILY 12/10/18 12/10/18 Previous Rx's Medication Instructions Recorded Levothyroxine Sodium [Synthroid] 50 mcg PO DAILY@0630 #30 tab 06/07/18 Albuterol Sulfate [Proair Hfa] 1 - 2 puff INHALATION Q4HR PRN #1 12/10/18 inhaler Azithromycin [Zithromax Z-pack] 250 mg PO DIRECTED #1 pack 12/10/18 Codeine Phosphate/Guaifenesin 10 ml PO Q8HR PRN #180 ml 12/10/18 [Guaiatussin AC Liquid] predniSONE 20 mg PO BID #10 tab 12/10/18 Allergies Allergy/AdvReac Type Severity Reaction Status Date / Time No Known Allergies Allergy Verified 01/30/19 13:00 Review of Systems ROS Statement: Those systems with pertinent positive or pertinent negative responses have been documented in the HPI. ROS Other: All systems not noted in ROS Statement are negative. 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 History of Any Multi-Drug Resistant Organisms: None Reported Past Surgical History: Adenoidectomy, Breast Surgery, Cholecystectomy, Coronary Bypass/CABG, Heart Catheterization With Stent, Hernia Repair, Tonsillectomy Additional Past Surgical History / Comment(s): Cardiac caths with stent to proximal LAD in 2003 and stent to mid LAD 2010, 03/09/12 CABG-3 vessel, umbilical hernia repair, bilateral breast bx-R breast had chrystall removed, L caratid endartectomy, UVPPP, colonoscopy, hemorrhoidectomy, bilateral cataract removal with lens implants. Past Anesthesia/Blood Transfusion Reactions: No Reported Reaction Additional Past Anesthesia/Blood Transfusion Reaction / Comment(s): never recieved any blood in past. Date of Last Stent Placement:: 2010 Past Psychological History: Anxiety, Depression Smoking Status: Never smoker Past Alcohol Use History: None Reported Past Drug Use History: None Reported - Past Family History Father Family Medical History: Congestive Heart Failure (CHF), Coronary Artery Disease (CAD) Additional Family Medical History / Comment(s): Father at the age of 57yrs of CHF Mother Family Medical History: Cancer Additional Family Medical History / Comment(s): Mother had colon cancer. She lived to be 89 1/2yrs old. Brother(s) History Unknown: Yes Sister(s) Family Medical History: Cancer Additional Family Medical History / Comment(s): Patient states sister from complications after open heart Daughter(s) History Unknown: Yes Additional Family Medical History / Comment(s): liver cancer General Exam Limitations: no limitations General appearance: alert, in no apparent distress Head exam: Present: atraumatic, normocephalic, normal inspection, other (No areas of ecchymosis no noted trauma) Eye exam: Present: normal appearance, PERRL, EOMI. Absent: scleral icterus, conjunctival injection, periorbital swelling ENT exam: Present: normal exam, normal oropharynx, mucous membranes moist, TM's normal bilaterally Neck exam: Present: normal inspection, full ROM. Absent: tenderness (Cervical spine is nontender, no step-off deformity no ecchymosis), meningismus, lymphadenopathy Respiratory exam: Present: normal lung sounds bilaterally, prolonged expiratory. Absent: respiratory distress, wheezes, rales, rhonchi, stridor, decreased breath sounds Cardiovascular Exam: Present: regular rate, normal rhythm, normal heart sounds. Absent: systolic murmur, diastolic murmur, rubs, gallop, clicks GI/Abdominal exam: Present: soft, normal bowel sounds. 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 Absent: tenderness, muscle spasm, paraspinal tenderness, vertebral tenderness Neurological exam: Present: alert, oriented X3, CN II-XII intact, reflexes normal, other (Finger to nose intact bilaterally without over shooting). Absent: motor sensory deficit Skin exam: Present: warm, dry, intact, normal color. Absent: rash Course Vital Signs 01/30/19 12:58 Temperature 97.8 F Pulse Rate 70 Respiratory 16 Rate Blood Pressure 149/81 O2 Sat by Pulse 95 Oximetry Medical Decision Making - Medical Decision Making CT of the brain was obtained which shows no acute abnormality CT of the C-spine shows old compression deformities she has no localized tenderness. X-ray of the left shoulder shows degenerative changes. I do believe the patient has a right shoulder pain. Patient has no neurological deficits she has no neck pain. - Lab Data Lab Results 01/30/19 Range/Units 13:34 PT 23.0 H (9.0-12.0) sec INR 2.4 H (<1.2) Disposition Clinical Impression: Fall, Right shoulder strain Disposition: HOME SELF-CARE Condition: Stable Instructions (If sedation given, give patient instructions): Shoulder Sprain (ED) Additional Instructions: Please return to the Emergency Department if symptoms worsen or any other concerns. Is patient prescribed a controlled substance at d/c from ED?: No Referrals: Jad Paulino DO [Primary Care Provider] - 1-2 days Time of Disposition: 14:25
[2019-01-30 14:55] VITALS: BP 138/70; PULSE 78; TEMP 98
== END 2019-01-30 14:54 | disposition home or self-care (01) ==
LOC: EC 12:57
DX: S46.911A Strain of unspecified muscle, fascia and tendon at shoulder and upper arm level, right arm, initial encounter (principal); M19.011 Primary osteoarthritis, right shoulder; S50.311A Abrasion of right elbow, initial encounter; I48.91 Unspecified atrial fibrillation; K21.9 Gastro-esophageal reflux disease without esophagitis; E78.5 Hyperlipidemia, unspecified; I10 Essential (primary) hypertension; G47.33 Obstructive sleep apnea (adult) (pediatric); I73.9 Peripheral vascular disease, unspecified; I20.9 Angina pectoris, unspecified; Z79.01 Long term (current) use of anticoagulants; Z79.899 Other long term (current) drug therapy; Z86.711 Personal history of pulmonary embolism; Z86.718 Personal history of other venous thrombosis and embolism; Z95.1 Presence of aortocoronary bypass graft; Z99.89 Dependence on other enabling machines and devices; W01.0XXA Fall on same level from slipping, tripping and stumbling without subsequent striking against object, initial encounter; Y92.003 Bedroom of unspecified non-institutional (private) residence as the place of occurrence of the external cause
CPT/HCPCS: 36415; 70450; 72125; 85610; 99284

== ENCOUNTER → 2019-09-12 | Outpatient (CLI) | payer MEDICARE, BC | END | disposition home or self-care (01) | LOC: LABWHC1 12:34 | PROVIDERS: ATTEND Nurse Practitioner | DX: R19.7 Diarrhea, unspecified (principal) | CPT/HCPCS: 36415; 83735 ==

== ENCOUNTER 2019-10-08 14:20 | Emergency (ER) | payer MEDICARE, BC ==
[2019-10-08 14:27] VITALS: RESP 16; TEMP 98.3
[2019-10-08] MEDS ORDERED: MORPHINE SULFATE 2 MG/ML SYRINGE IVP STA (14:59)
[2019-10-08] MEDS ORDERED: SODIUM CHLORIDE 0.9% 1,000 ML IV STA ×2 (14:59)
[2019-10-08] MEDS ORDERED: PANTOPRAZOLE 40 MG/10 ML VIAL IVP STA (14:59)
[2019-10-08] MEDS ORDERED: ONDANSETRON 4 MG/2 ML VIAL IVP STA (14:59)
[2019-10-08 15:44] LABS: Basophils % (A) 1 %; Eosinophils # (A) 0.2 k/uL (0-0.7); Eosinophils % (A) 2 %; HCT 36.4 % (34.0-46.0); HGB 11.7 gm/dL (11.4-16.0); Lymphocytes % (A) 24 %; MCHC 32.1 g/dL (31.0-37.0); MCV 93.6 fL (80.0-100.0); Monocytes # (A) 0.5 k/uL (0-1.0); Monocytes % (A) 6 %; Neutrophils # (A) 5.3 k/uL (1.3-7.7); Neutrophils % (A) 65 %; Platelet Count 213 k/uL (150-450); RBC 3.89 m/uL (3.80-5.40); RDW 15.3 % (11.5-15.5); WBC 8.1 k/uL (3.8-10.6)
[2019-10-08 15:50] LABS: Albumin 3.7 g/dL (3.5-5.0); Calcium 8.4 mg/dL (8.4-10.2); Potassium 3.9 mmol/L (3.5-5.1); Total Bilirubin 1.7 mg/dL (0.2-1.3); Total Protein 6.8 g/dL (6.3-8.2)
--- NOTE | 2019-10-08 15:52 | ED ---
Abdominal Pain HPI - General Chief Complaint: Abdominal Pain Stated Complaint: abd pain Time Seen by Provider: 10/08/19 14:38 Source: patient, RN notes reviewed, old records reviewed Mode of arrival: wheelchair Limitations: no limitations - History of Present Illness Initial Comments: Claudia is a 83-year-old female presents today with 4 weeks of diarrhea and abdominal cramping and pain. She is concerned because her daughter recently passed at the age of 60 from liver cancer. Patient states that she followed with GI who prescribed her antidiarrhea medication but this seems to not have helped. Patient states that her abdomen does feel somewhat full and distended. She's not had a colonoscopy in greater than 5 years. Patient states that she has had no fevers or chills associated with the symptoms. Her family is very concerned to have her fully evaluated since they did lose her daughter recently to liver cancer. Pt has upcoming appt with PCP. - Related Data Home Medications Medication Instructions Recorded Confirmed atenoloL [Tenormin] 25 mg PO DAILY 01/10/16 10/08/19 Warfarin Sodium 2.5 mg PO SUMOTUWETHFR@209911/16/17 10/08/19 Warfarin [Coumadin] 5 mg PO SA@2100 06/04/18 10/08/19 ALPRAZolam [Xanax] 0.5 mg PO TID PRN 11/07/18 10/08/19 Atorvastatin [Lipitor] 80 mg PO HS 11/07/18 10/08/19 Levothyroxine Sodium [Synthroid] 50 mcg PO DAILY 10/08/19 10/08/19 Allergies Allergy/AdvReac Type Severity Reaction Status Date / Time No Known Allergies Allergy Verified 10/08/19 16:32 Review of Systems ROS Statement: Those systems with pertinent positive or pertinent negative responses have been documented in the HPI. ROS Other: All systems not noted in ROS Statement are negative. 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 History of Any Multi-Drug Resistant Organisms: None Reported Past Surgical History: Adenoidectomy, Breast Surgery, Cholecystectomy, Coronary Bypass/CABG, Heart Catheterization With Stent, Hernia Repair, Tonsillectomy Additional Past Surgical History / Comment(s): Cardiac caths with stent to proximal LAD in 2003 and stent to mid LAD 2010, 03/09/12 CABG-3 vessel, umbilical hernia repair, bilateral breast bx-R breast had chrystall removed, L caratid endartectomy, UVPPP, colonoscopy, hemorrhoidectomy, bilateral cataract removal with lens implants. Past Anesthesia/Blood Transfusion Reactions: No Reported Reaction Additional Past Anesthesia/Blood Transfusion Reaction / Comment(s): never recieved any blood in past. Date of Last Stent Placement:: 2010 Past Psychological History: Anxiety, Depression Past Alcohol Use History: None Reported Past Drug Use History: None Reported - Past Family History Father Family Medical History: Congestive Heart Failure (CHF), Coronary Artery Disease (CAD) Additional Family Medical History / Comment(s): Father at the age of 57yrs of CHF Mother Family Medical History: Cancer Additional Family Medical History / Comment(s): Mother had colon cancer. She lived to be 89 1/2yrs old. Brother(s) History Unknown: Yes Sister(s) Family Medical History: Cancer Additional Family Medical History / Comment(s): Patient states sister from complications after open heart Daughter(s) History Unknown: Yes Additional Family Medical History / Comment(s): liver cancer General Exam - General Exam Comments Initial Comments: 83-year-old female. Alert and oriented 3. Limitations: no limitations General appearance: alert, in no apparent distress Head exam: Present: atraumatic, normocephalic, normal inspection Eye exam: Present: normal appearance, PERRL, EOMI. Absent: scleral icterus, conjunctival injection, periorbital swelling ENT exam: Present: normal exam, mucous membranes moist Neck exam: Present: normal inspection. Absent: tenderness, meningismus, lymphadenopathy Respiratory exam: Present: normal lung sounds bilaterally. Absent: respiratory distress, wheezes, rales, rhonchi, stridor Cardiovascular Exam: Present: regular rate, normal rhythm, normal heart sounds. Absent: systolic murmur, diastolic murmur, rubs, gallop, clicks GI/Abdominal exam: Present: soft, normal bowel sounds, other (No tenderness, palpable masses or distention). Absent: distended, tenderness, guarding, rebound, rigid Extremities exam: Present: normal inspection, full ROM, normal capillary refill. Absent: tenderness, pedal edema, joint swelling, calf tenderness Neurological exam: Present: alert, oriented X3, CN II-XII intact Psychiatric exam: Present: normal affect, normal mood Course Vital Signs 10/08/19 10/08/19 14:24 17:05 Temperature 98.3 F Pulse Rate 97 721 H Respiratory 16 16 Rate Blood Pressure 145/73 150/78 O2 Sat by Pulse 96 97 Oximetry Medical Decision Making - Medical Decision Making 83 year old female presents today with diarrhea for 4 weeks, non bloody and no recent antiobitioc use. She has no abdominal tenderness, but will occasionally start to cramp. She is concenred bc her 60 year old daughter of liver canc er recently. Today she appears well, in overall good spirits. She was given IV fluids and labs are normal. She has not had BM while in ED. She was informed that labs are normal and has a great relief. 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 Patient advised to follow up with PCP for further evaluation but at this time appears well, with no tenderness and can return if symptoms persist or worsen. Discussed bland diet. - Lab Data Result diagrams: 10/08/19 15:28 10/08/19 15:28 Lab Results 10/08/19 10/08/19 10/08/19 Range/Units 15:28 15:28 15:28 WBC 8.1 (3.8-10.6) k/uL RBC 3.89 (3.80-5.40) m/uL Hgb 11.7 (11.4-16.0) gm/dL Hct 36.4 (34.0-46.0) % MCV 93.6 (80.0-100.0) fL MCH 30.0 (25.0-35.0) pg MCHC 32.1 (31.0-37.0) g/dL RDW 15.3 (11.5-15.5) % Plt Count 213 (150-450) k/uL Neutrophils % 65 % Lymphocytes % 24 % Monocytes % 6 % Eosinophils % 2 % Basophils % 1 % Neutrophils # 5.3 (1.3-7.7) k/uL Lymphocytes # 2.0 (1.0-4.8) k/uL Monocytes # 0.5 (0-1.0) k/uL Eosinophils # 0.2 (0-0.7) k/uL Basophils # 0.0 (0-0.2) k/uL PT 25.3 H (9.0-12.0) sec INR 2.6 H (<1.2) APTT 33.3 H (22.0-30.0) sec Sodium (137-145) mmol/L Potassium (3.5-5.1) mmol/L Chloride (98-107) mmol/L Carbon Dioxide (22-30) mmol/L Anion Gap mmol/L BUN (7-17) mg/dL Creatinine (0.52-1.04) mg/dL Est GFR (CKD-EPI)AfAm (>60 ml/min/1.73 sqM) Est GFR (CKD-EPI)NonAf (>60 ml/min/1.73 sqM) Glucose (74-99) mg/dL Plasma Lactic Acid Sam (0.7-2.0) mmol/L Calcium (8.4-10.2) mg/dL Magnesium (1.6-2.3) mg/dL Total Bilirubin (0.2-1.3) mg/dL AST (14-36) U/L ALT (4-34) U/L Alkaline Phosphatase (38-126) U/L Total Protein (6.3-8.2) g/dL Albumin (3.5-5.0) g/dL Amylase (30-110) U/L Lipase (23-300) U/L Urine Color Light Yellow Urine Appearance Clear (Clear) Urine pH 5.5 (5.0-8.0) Ur Specific [place] 1.006 (1.001-1.035) Urine Protein Negative (Negative) Urine Glucose (UA) Negative (Negative) Urine Ketones Negative (Negative) Urine Blood Negative (Negative) Urine Nitrite Negative (Negative) Urine Bilirubin Negative (Negative) Urine Urobilinogen <2.0 (<2.0) mg/dL Ur Leukocyte Esterase Negative (Negative) 10/08/19 10/08/19 10/08/19 Range/Units 15:28 15:28 16:11 WBC (3.8-10.6) k/uL RBC (3.80-5.40) m/uL Hgb (11.4-16.0) gm/dL Hct (34.0-46.0) % MCV (80.0-100.0) fL MCH (25.0-35.0) pg MCHC (31.0-37.0) g/dL RDW (11.5-15.5) % Plt Count (150-450) k/uL Neutrophils % % Lymphocytes % % Monocytes % % Eosinophils % % Basophils % % Neutrophils # (1.3-7.7) k/uL Lymphocytes # (1.0-4.8) k/uL Monocytes # (0-1.0) k/uL Eosinophils # (0-0.7) k/uL Basophils # (0-0.2) k/uL PT (9.0-12.0) sec INR (<1.2) APTT (22.0-30.0) sec Sodium 136 L (137-145) mmol/L Potassium 3.9 (3.5-5.1) mmol/L Chloride 106 (98-107) mmol/L Carbon Dioxide 21 L (22-30) mmol/L Anion Gap 9 mmol/L BUN 18 H (7-17) mg/dL Creatinine 1.19 H (0.52-1.04) mg/dL Est GFR (CKD-EPI)AfAm 48 (>60 ml/min/1.73 sqM) Est GFR (CKD-EPI)NonAf 42 (>60 ml/min/1.73 sqM) Glucose 93 (74-99) mg/dL Plasma Lactic Acid Sam 1.6 (0.7-2.0) mmol/L Calcium 8.4 (8.4-10.2) mg/dL Magnesium 1.6 (1.6-2.3) mg/dL Total Bilirubin 1.7 H (0.2-1.3) mg/dL AST 35 (14-36) U/L ALT 18 (4-34) U/L Alkaline Phosphatase 51 (38-126) U/L Total Protein 6.8 (6.3-8.2) g/dL Albumin 3.7 (3.5-5.0) g/dL Amylase 54 (30-110) U/L Lipase 208 (23-300) U/L Urine Color Urine Appearance (Clear) Urine pH (5.0-8.0) Ur Specific [place] (1.001-1.035) Urine Protein (Negative) Urine Glucose (UA) (Negative) Urine Ketones (Negative) Urine Blood (Negative) Urine Nitrite (Negative) Urine Bilirubin (Negative) Urine Urobilinogen (<2.0) mg/dL Ur Leukocyte Esterase (Negative) Disposition Clinical Impression: History of chronic diarrhea Disposition: HOME SELF-CARE Condition: Good Instructions (If sedation given, give patient instructions): Irritable Bowel Syndrome (ED) Additional Instructions: Patient is a follow-up with your primary care physician.Patient should have a bland diet as discussed, with bananas rice applesauce and toast. Return to the emergency department if any alarming signs or symptoms occur. Is patient prescribed a controlled substance at d/c from ED?: No Referrals: Jad Paulino DO [Primary Care Provider] - 1-2 days Time of Disposition: 16:54
[2019-10-08 16:25] LABS: INR 2.6 (<1.2); Partial Thromboplastin Time 33.3 sec (22.0-30.0); Prothrombin Time 25.3 sec (9.0-12.0)
[2019-10-08 16:26] LABS: Appearance,Urine Clear (Clear); Bilirubin,Urine Negative (Negative); Blood,Urine Negative (Negative); Color,Urine Light Yellow; Glucose,Urine (UA) Negative (Negative); Ketones,Urine Negative (Negative); Leukocyte Esterase,Urine Negative (Negative); Nitrite,Urine Negative (Negative); PH, Urine 5.5 (5.0-8.0); Protein,Urine Negative (Negative); Specific Gravity,Urine 1.006 (1.001-1.035); Urobilinogen,Urine <2.0 mg/dL (<2.0)
[2019-10-08 17:06] VITALS: BP 150/78; PULSE 721
== END 2019-10-08 17:06 | disposition home or self-care (01) ==
LOC: EC 14:20
DX: R19.7 Diarrhea, unspecified (principal); R10.9 Unspecified abdominal pain; F41.9 Anxiety disorder, unspecified; F32.9 Major depressive disorder, single episode, unspecified; I48.91 Unspecified atrial fibrillation; I25.2 Old myocardial infarction; E78.5 Hyperlipidemia, unspecified; I10 Essential (primary) hypertension; E03.9 Hypothyroidism, unspecified; G47.33 Obstructive sleep apnea (adult) (pediatric); Z79.01 Long term (current) use of anticoagulants; Z79.890 Hormone replacement therapy; Z79.899 Other long term (current) drug therapy; Z95.5 Presence of coronary angioplasty implant and graft; Z95.1 Presence of aortocoronary bypass graft; Z86.711 Personal history of pulmonary embolism; Z99.89 Dependence on other enabling machines and devices; Z86.718 Personal history of other venous thrombosis and embolism; Z80.0 Family history of malignant neoplasm of digestive organs
CPT/HCPCS: 36415; 80053; 82150; 83605; 83690; 83735; 85025; 85610; 85730; 81003; 99284; 96374; 96375 ×2; 96361; J2405; J2270; C9113

== ENCOUNTER → 2020-03-17 | Outpatient (CLI) | payer MEDICARE, BC ==
--- NOTE | 2020-03-22 08:16 | MM ---
Reason for exam: screening (asymptomatic). Last mammogram was performed 3 years ago. History: Patient is postmenopausal. Benign stereotactic core biopsy of the right breast, April 10, 2003. Excisional biopsy of the left breast, 1979. Cyst aspiration of the right breast. Excisional biopsy of the right breast. Took estrogen for 2 years. Physical Findings: A clinical breast exam by your physician is recommended on an annual basis and results should be correlated with mammographic findings. MG 3D Screening Mammo W/Cad Bilateral CC and MLO view(s) were taken. Prior study comparison: March 06, 2017, bilateral MG 3d screening mammo w/cad. February 04, 2016, bilateral MG 3d screening mammo w/cad. The breast tissue is heterogeneously dense. This may lower the sensitivity of mammography. Benign secretory and vascular calcifications. No significant changes when compared with prior studies. ASSESSMENT: Benign, BI-RAD 2 RECOMMENDATION: Routine screening mammogram of both breasts in 1 year.
== END | disposition home or self-care (01) ==
LOC: RADMAMWWP 10:59
PROVIDERS: ATTEND Family Medicine
DX: Z12.31 Encounter for screening mammogram for malignant neoplasm of breast (principal)
CPT/HCPCS: 77063; 77067

== ENCOUNTER 2021-01-12 17:52 | Emergency (ER) | payer MEDICARE, BC ==
[2021-01-12 19:13] VITALS: BP 152/67; PULSE 68; RESP 20; TEMP 98.5
--- NOTE | 2021-01-12 20:23 | XR ---
EXAMINATION TYPE: XR ankle complete LT DATE OF EXAM: 01/12/2021 COMPARISON: NONE HISTORY: . Pain/injury. Left ankle pain after twisting injury. TECHNIQUE: AP, oblique, and lateral views of the left ankle. FINDINGS: There is avulsion fracture fragment off of the lateral malleolus. There is marked lateral a nkle soft tissue swelling. Ankle mortise is maintained. No dislocation. Calcified vascular atheroscle rotic disease. IMPRESSION: Avulsion fracture fragment off of the lateral malleolus and marked lateral ankle soft tissue swelling .
--- NOTE | 2021-01-12 21:04 | XR ---
EXAMINATION TYPE: XR tibia fibula LT DATE OF EXAM: 01/12/2021 CLINICAL HISTORY: Left ankle pain after twisting injury. TECHNIQUE: Two views of the left tibia and fibula are obtained. COMPARISON: Same day left ankle radiograph FINDINGS: There is avulsion fracture fragment of the lateral malleolus and marked ankle soft tissue s welling. Knee and ankle joints appear maintained. IMPRESSION: Avulsion fracture fragment of the lateral malleolus and marked lateral ankle soft tissue swelling.
[2021-01-12] MEDS ORDERED: HYDROcodone/APAP 5-325MG 1 EACH TAB PO STA (21:39)
[2021-01-12] MEDS ORDERED: ACET/COD 300 MG/30 MG STARTER PACK 6 TAB BTL PO STA (22:06)
--- NOTE | 2021-01-12 22:06 | ED ---
Lower Extremity Injury HPI - General Chief Complaint: Extremity Injury, Lower Stated Complaint: Ankle Injury Time Seen by Provider: 01/12/21 21:24 Source: patient, RN notes reviewed Mode of arrival: EMS Limitations: no limitations - History of Present Illness Initial Comments: Patient is an 85-year-old female that presents to the emergency department co mplaining of left ankle pain. She notes that her hospital falling to try to catch up with her left leg. She notes that he landed on her leg he felt a twist. She can emergency room to get evaluated for possible injury. She denied any other issues or complaints. She notes her pain is approximate a 6 out of 10 with no relief. She only takes Tylenol home. She is on Coumadin so she can't take any NSAIDs or Motrin. She denied chest pain shortness of breath headache nausea vomiting diarrhea constipation fever fatigue chills. - Related Data Home Medications Medication Instructions Recorded Confirmed atenoloL [Tenormin] 25 mg PO DAILY 01/10/16 10/08/19 Warfarin Sodium 2.5 mg PO SUMOTUWETHFR@209911/16/17 10/08/19 Warfarin [Coumadin] 5 mg PO SA@209906/04/18 10/08/19 ALPRAZolam [Xanax] 0.5 mg PO TID PRN 11/07/18 10/08/19 Atorvastatin [Lipitor] 80 mg PO HS 11/07/18 10/08/19 Levothyroxine Sodium [Synthroid] 50 mcg PO DAILY 10/08/19 10/08/19 Allergies Allergy/AdvReac Type Severity Reaction Status Date / Time No Known Allergies Allergy Verified 01/12/21 19:10 Review of Systems ROS Statement: Those systems with pertinent positive or pertinent negative responses have been documented in the HPI. ROS Other: All systems not noted in ROS Statement are negative. 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 History of Any Multi-Drug Resistant Organisms: None Reported Past Surgical History: Adenoidectomy, Breast Surgery, Cholecystectomy, Coronary Bypass/CABG, Heart Catheterization With Stent, Hernia Repair, Tonsillectomy Additional Past Surgical History / Comment(s): Cardiac caths with stent to proximal LAD in 2003 and stent to mid LAD 2010, 03/09/12 CABG-3 vessel, umbilical hernia repair, bilateral breast bx-R breast had chrystall removed, L caratid endartectomy, UVPPP, colonoscopy, hemorrhoidectomy, bilateral cataract removal with lens implants. Past Anesthesia/Blood Transfusion Reactions: No Reported Reaction Additional Past Anesthesia/Blood Transfusion Reaction / Comment(s): never recieved any blood in past. Date of Last Stent Placement:: 2010 Past Psychological History: Anxiety, Depression Smoking Status: Never smoker Past Alcohol Use History: None Reported Past Drug Use History: None Reported - Past Family History Father Family Medical History: Congestive Heart Failure (CHF), Coronary Artery Disease (CAD) Additional Family Medical History / Comment(s): Father at the age of 57yrs of CHF Mother Family Medical History: Cancer Additional Family Medical History / Comment(s): Mother had colon cancer. She lived to be 89 1/2yrs old. Brother(s) History Unknown: Yes Sister(s) Family Medical History: Cancer Additional Family Medical History / Comment(s): Patient states sister from complications after open heart Daughter(s) History Unknown: Yes Additional Family Medical History / Comment(s): liver cancer General Exam Limitations: no limitations General appearance: alert, in no apparent distress Head exam: Present: atraumatic, normocephalic, normal inspection Eye exam: Present: normal appearance, PERRL, EOMI. Absent: scleral icterus, conjunctival injection, periorbital swelling ENT exam: Present: normal exam, mucous membranes moist Neck exam: Present: normal inspection Respiratory exam: Present: normal lung sounds bilaterally. Absent: respiratory distress, wheezes, rales, rhonchi, stridor Cardiovascular Exam: Present: regular rate, normal rhythm, normal heart sounds. Absent: systolic murmur, diastolic murmur, rubs, gallop, clicks GI/Abdominal exam: Present: soft, normal bowel sounds. Absent: distended, tenderness, guarding, rebound, rigid Left Ankle exam: Present: tenderness (Lateral malleoli), swelling (Lateral malleoli), ecchymosis Neurological exam: Present: alert, oriented X3 Psychiatric exam: Present: normal affect, normal mood Skin exam: Present: warm, dry, intact, normal color. Absent: rash Course Vital Signs 01/12/21 19:10 Temperature 98.5 F Pulse Rate 68 Respiratory 20 Rate Blood Pressure 152/67 O2 Sat by Pulse 94 L Oximetry Procedures - Orthopedic Splinting/Casting Injury #1 Side: left Lower Extremity Injury Location: ankle Lower Extremity Immobilizer: stirrup splint, Abad wrap, synthetic pre-padded splint Medical Decision Making - Medical Decision Making 85-year-old female with left ankle pain. X-ray left ankle and tib-fib, [place] 5 ordered. X-ray shows a lateral malleoli avulsion fracture. Patient tolerated splinting well. Tylenol 3 starter pack will be given. Patient will be referred to orthopedics. Case discussed with Dr. Cazares, patient can discharge home. - Radiology Data Radiology results: report reviewed, image reviewed X-ray left ankle and tib-fib: Avulsion fracture fragment of the lateral malleolus and marked lateral ankle soft tissue swelling. Disposition Clinical Impression: Avulsion fracture of left ankle Disposition: HOME SELF-CARE Condition: Stable Instructions (If sedation given, give patient instructions): Ankle Fracture (ED) Additional Instructions: Please return to the Emergency Department if symptoms worsen or any other concerns. Follow-up with primary care 1-2 days. Follow-up with orthopedics as soon as possible. Is patient prescribed a controlled substance at d/c from ED?: No Referrals: Jad Paulino DO [Primary Care Provider] - 1-2 days Johanna Zuniga DO [Doctor of Osteopathic Medicine] - 1-2 days Time of Disposition: 22:06
== END 2021-01-12 22:47 | disposition home or self-care (01) ==
LOC: EC 17:52
DX: S82.62XA Displaced fracture of lateral malleolus of left fibula, initial encounter for closed fracture (principal); I48.91 Unspecified atrial fibrillation; K21.9 Gastro-esophageal reflux disease without esophagitis; E78.5 Hyperlipidemia, unspecified; I10 Essential (primary) hypertension; E07.9 Disorder of thyroid, unspecified; F41.9 Anxiety disorder, unspecified; F32.9 Major depressive disorder, single episode, unspecified; Z79.01 Long term (current) use of anticoagulants; Z86.718 Personal history of other venous thrombosis and embolism; Z86.711 Personal history of pulmonary embolism; Z90.49 Acquired absence of other specified parts of digestive tract; Z90.89 Acquired absence of other organs; Z95.5 Presence of coronary angioplasty implant and graft; X50.1XXA Overexertion from prolonged static or awkward postures, initial encounter
CPT/HCPCS: 29515; 99283

== ENCOUNTER 2021-04-06 13:56 | Inpatient (IN) | payer MEDICARE, BC ==
[2021-04-06] MEDS ORDERED: ONDANSETRON 4 MG/2 ML VIAL IVP STA (14:18)
[2021-04-06] MEDS ORDERED: HUMAN PROTHROMBIN COMPLX 500 UNIT/16 ML VIAL IV ONE (14:21)
[2021-04-06] MEDS ORDERED: Kcentra PER PHARMACY 1 EACH MISC MISCELLANE PRN (14:21)
[2021-04-06] MEDS ORDERED: levETIRAcetam IV 1,500 MG in SALINE 1 100ML.BAG IVPB STA (14:23)
[2021-04-06] MEDS ORDERED: HUMAN PROTHROMBIN COMPLX IV ONE (14:30)
[2021-04-06] MEDS ORDERED: PHYTONADIONE 10 MG in SODIUM CHLORIDE 0.9% 50 ML IVPB STA (14:34)
[2021-04-06] MEDS ORDERED: MANNITOL IV ONE (14:45)
[2021-04-06] MEDS ORDERED: SALINE IV ONE (14:45)
[2021-04-06 14:55] LABS: Basophils # (A) 0.1 k/uL (0-0.2); Basophils % (A) 0 %; Eosinophils # (A) 0.1 k/uL (0-0.7); Eosinophils % (A) 1 %; HCT 39.1 % (34.0-46.0); HGB 12.1 gm/dL (11.4-16.0); Hypochromasia Moderate; Lymphocytes # (A) 2.9 k/uL (1.0-4.8); Lymphocytes % (A) 18 %; MCH 30.5 pg (25.0-35.0); MCHC 30.9 g/dL (31.0-37.0); MCV 98.6 fL (80.0-100.0); Macrocytosis Slight; Mean Platelet Volume 7.8; Monocytes # (A) 0.6 k/uL (0-1.0); Monocytes % (A) 4 %; Neutrophils # (A) 12.5 k/uL (1.3-7.7); Neutrophils % (A) 76 %; Platelet Count 253 k/uL (150-450); RBC 3.97 m/uL (3.80-5.40); RDW 15.7 % (11.5-15.5); WBC 16.3 k/uL (3.8-10.6)
--- NOTE | 2021-04-06 15:00 | CT ---
EXAMINATION TYPE: CT brain tato wo con DATE OF EXAM: 04/06/2021 COMPARISON: 01/30/2019 HISTORY: 85-year-old female NEURO DEFICITS. Frequent falls CT DLP: 1294.7 mGycm Automated exposure control for dose reduction was used. Technique: Examination of the head was done in axial plane without intravenous contrast. Coronal and sagittal reconstructions performed. CT of the cervical spine was obtained in axial plane without intravenous injection of contrast mater ial. Coronal and sagittal reformatted images were obtained from the axial views for evaluation of f ractures, spinal alignment and canal. FINDINGS: Head: There is mixed age (but predominantly acute) subdural hematoma along the right lateral convexity hui uring up to 1.8 cm thick. This exerts mass effect on to the right cerebral hemisphere completely flat tening the right lateral ventricle and causing 1.5 cm of leftward midline shift. There is leftward subfalcine herniation and right uncal herniation with mass effect onto the midbrain . Acute subdural hematoma thickens the falx up to 3 mm in the bilateral tentorium cerebelli, the left t hickened up to 6 mm in the right thickened up to 4 mm. Additional subdural hematoma extends along the floor of the right middle cranial fossa and also of th e floor of the right anterior cranial fossa. There is some focal subarachnoid hemorrhage left superior frontoparietal junction measuring 2.0 cm. Overall lopez-white matter differentiation is maintained at this time. Trace mucosal thickening ethmoid air cells. 1 cm polyp or mucosal retention cyst anterior left maxill madeleine sinus. Small air-fluid level right sphenoid sinus. Previous scleral banding left globe. Mastoid air cells well pneumatized. Cervical spine: Craniocervical junction anomaly, predental space widening, or prevertebral soft tissue swelling. Preserved alignment of the cervical spine. No acute fracture seen. Multilevel facet and uncovertebral joint arthropathy. No evident canal compromise. Mild neuroforaminal stenoses throughout. Visualized upper lungs shows septal lines and patchy groundglass, probably developing pulmonary edema . Sagittal and coronal reformatted images confirm above findings. COMBINED IMPRESSION: HEAD: 1. Large mixed density (but predominantly acute) subdural hematoma along the right lateral convexity measuring up to 1.8 cm thick. This has mass effect on to the right cerebral hemisphere, flattening th e right lateral ventricle, and causing 1.5 cm of leftward midline shift. There is subfalcine herniati on and right uncal herniation with compression onto the midbrain. 2. Additional acute subdural hematoma thickens the midline falx, bilateral tentorium, and the floor o f the right middle and right anterior cranial fossa. 3. A 2.0 cm focus of acute subarachnoid hemorrhage superior left frontoparietal junction. CERVICAL SPINE: 4. No acute fracture or malalignment of the cervical spine. Mild to moderate spondylitic change. 5. Suspect developing pulmonary edema in the visualized upper lungs. Critical findings called to Dr. Turk in the ER at 2:55pm.
[2021-04-06 15:06] LABS: INR 4.6 (<1.2)
[2021-04-06 15:07] LABS: Partial Thromboplastin Time 31.6 sec (22.0-30.0); Prothrombin Time 46.1 sec (9.0-12.0)
[2021-04-06 15:17] LABS: Albumin 4.1 g/dL (3.5-5.0); Calcium 8.3 mg/dL (8.4-10.2); Potassium 3.4 mmol/L (3.5-5.1); Total Bilirubin 1.1 mg/dL (0.2-1.3); Total Protein 7.6 g/dL (6.3-8.2)
--- NOTE | 2021-04-06 15:35 | ED ---
General Adult HPI - General Chief complaint: Fall Stated complaint: fall/unresponsive Time Seen by Provider: 04/06/21 13:59 Source: family, EMS, RN notes reviewed, old records reviewed Mode of arrival: EMS Limitations: altered mental status - History of Present Illness Initial comments: 85-year-old female who had presented with altered level consciousness, fall. Patient is on Coumadin she was apparently lifting the foot rest of her 's chair fell striking her head. Patient became acutely altered with vomiting. She was transported by EMS, she was vomiting throughout transport. Patient unable to give history. - Related Data Home Medications Medication Instructions Recorded Confirmed atenoloL [Tenormin] 25 mg PO DAILY 01/10/16 10/08/19 Warfarin Sodium 2.5 mg PO SUMOTUWETHFR@209911/16/17 10/08/19 Warfarin [Coumadin] 5 mg PO SA@209906/04/18 10/08/19 ALPRAZolam [Xanax] 0.5 mg PO TID PRN 11/07/18 10/08/19 Atorvastatin [Lipitor] 80 mg PO HS 11/07/18 10/08/19 Levothyroxine Sodium [Synthroid] 50 mcg PO DAILY 10/08/19 10/08/19 Allergies Allergy/AdvReac Type Severity Reaction Status Date / Time No Known Allergies Allergy Verified 01/12/21 19:10 Review of Systems ROS Statement: Those systems with pertinent positive or pertinent negative responses have been documented in the HPI. ROS Other: All systems not noted in ROS Statement are negative. 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 History of Any Multi-Drug Resistant Organisms: None Reported Past Surgical History: Adenoidectomy, Breast Surgery, Cholecystectomy, Coronary Bypass/CABG, Heart Catheterization With Stent, Hernia Repair, Tonsillectomy Additional Past Surgical History / Comment(s): Cardiac caths with stent to proximal LAD in 2003 and stent to mid LAD 2010, 03/09/12 CABG-3 vessel, umbilical hernia repair, bilateral breast bx-R breast had chrystall removed, L caratid endartectomy, UVPPP, colonoscopy, hemorrhoidectomy, bilateral cataract removal with lens implants. Past Anesthesia/Blood Transfusion Reactions: No Reported Reaction Additional Past Anesthesia/Blood Transfusion Reaction / Comment(s): never recieved any blood in past. Date of Last Stent Placement:: 2010 Past Psychological History: Anxiety, Depression Smoking Status: Never smoker Past Alcohol Use History: None Reported Past Drug Use History: None Reported - Past Family History Father Family Medical History: Congestive Heart Failure (CHF), Coronary Artery Disease (CAD) Additional Family Medical History / Comment(s): Father at the age of 57yrs of CHF Mother Family Medical History: Cancer Additional Family Medical History / Comment(s): Mother had colon cancer. She lived to be 89 1/2yrs old. Brother(s) History Unknown: Yes Sister(s) Family Medical History: Cancer Additional Family Medical History / Comment(s): Patient states sister from complications after open heart Daughter(s) History Unknown: Yes Additional Family Medical History / Comment(s): liver cancer General Exam Limitations: no limitations General appearance: obtunded, in distress Head exam: Present: normocephalic Eye exam: Present: PERRL Neck exam: Present: normal inspection. Absent: meningismus Respiratory exam: Present: respiratory distress, rales Cardiovascular Exam: Present: regular rate, normal rhythm GI/Abdominal exam: Present: soft. Absent: distended, tenderness, guarding, rebound Extremities exam: Present: normal inspection, normal capillary refill Neurological exam: Present: motor sensory deficit (Patient will withdraw to pain on the right, not moving the left). Absent: alert, oriented X3 Skin exam: Present: diaphoretic Course Vital Signs 04/06/21 04/06/21 04/06/21 14:02 14:25 14:44 Pulse Rate 71 81 84 Respiratory 16 18 18 Rate Blood Pressure 174/80 184/95 182/90 O2 Sat by Pulse 90 L 93 L 91 L Oximetry 04/06/21 04/06/21 04/06/21 14:54 15:23 16:29 Pulse Rate 87 90 94 Respiratory 18 18 18 Rate Blood Pressure 187/88 176/90 170/80 O2 Sat by Pulse 92 L 90 L 92 L Oximetry EKG Findings - EKG Comments: EKG Findings:: Wide-complex rhythm, left bundle-branch block rate of 82, QRS duration 156, QTC 488 suspect sinus rhythm with prolonged TX. Medical Decision Making - Medical Decision Making 85-year-old female presenting in extremis. Hypertensive all third with focal weakness on the left patient is on Coumadin with recent head trauma. She's taken immediately to computed tomography scan which does show large subdural hematoma with volume loss of the right ventricle and midline shift as well as pending herniation. This fits the patient's clinical presentation. She is medially administered kcentra Keppra, mannitol, and vitamin K. I did have a lengthy discussion with both the patient's daughters, as well as the patient's these conversations were initially over the phone and then the patient's daughter Sherry was able to present to the emergency department. After these discussions with the patient will be made comfort care with medical management but no life support, no intubation, no surgical intervention for this devastating intracranial hemorrhage. Case discussed with Dr. Feliz who will admit - Lab Data Result diagrams: 04/06/21 14:41 04/06/21 14:41 Lab Results 04/06/21 04/06/21 04/06/21 Range/Units 14:41 14:41 14:41 WBC 16.3 H (3.8-10.6) k/uL RBC 3.97 (3.80-5.40) m/uL Hgb 12.1 (11.4-16.0) gm/dL Hct 39.1 (34.0-46.0) % MCV 98.6 (80.0-100.0) fL MCH 30.5 (25.0-35.0) pg MCHC 30.9 L (31.0-37.0) g/dL RDW 15.7 H (11.5-15.5) % Plt Count 253 (150-450) k/uL MPV 7.8 Neutrophils % 76 % Lymphocytes % 18 % Monocytes % 4 % Eosinophils % 1 % Basophils % 0 % Neutrophils # 12.5 H (1.3-7.7) k/uL Lymphocytes # 2.9 (1.0-4.8) k/uL Monocytes # 0.6 (0-1.0) k/uL Eosinophils # 0.1 (0-0.7) k/uL Basophils # 0.1 (0-0.2) k/uL Hypochromasia Moderate Macrocytosis Slight PT 46.1 H (9.0-12.0) sec INR 4.6 H (<1.2) APTT 31.6 H (22.0-30.0) sec Sodium 138 (137-145) mmol/L Potassium 3.4 L (3.5-5.1) mmol/L Chloride 104 (98-107) mmol/L Carbon Dioxide 23 (22-30) mmol/L Anion Gap 11 mmol/L BUN 16 (7-17) mg/dL Creatinine 1.15 H (0.52-1.04) mg/dL Est GFR (CKD-EPI)AfAm 50 (>60 ml/min/1.73 sqM) Est GFR (CKD-EPI)NonAf 43 (>60 ml/min/1.73 sqM) Glucose 175 H (74-99) mg/dL Calcium 8.3 L (8.4-10.2) mg/dL Total Bilirubin 1.1 (0.2-1.3) mg/dL AST 86 H (14-36) U/L ALT 40 H (4-34) U/L Alkaline Phosphatase 76 (38-126) U/L Troponin I (0.000-0.034) ng/mL Total Protein 7.6 (6.3-8.2) g/dL Albumin 4.1 (3.5-5.0) g/dL 04/06/21 Range/Units 14:41 WBC (3.8-10.6) k/uL RBC (3.80-5.40) m/uL Hgb (11.4-16.0) gm/dL Hct (34.0-46.0) % MCV (80.0-100.0) fL MCH (25.0-35.0) pg MCHC (31.0-37.0) g/dL RDW (11.5-15.5) % Plt Count (150-450) k/uL MPV Neutrophils % % Lymphocytes % % Monocytes % % Eosinophils % % Basophils % % Neutrophils # (1.3-7.7) k/uL Lymphocytes # (1.0-4.8) k/uL Monocytes # (0-1.0) k/uL Eosinophils # (0-0.7) k/uL Basophils # (0-0.2) k/uL Hypochromasia Macrocytosis PT (9.0-12.0) sec INR (<1.2) APTT (22.0-30.0) sec Sodium (137-145) mmol/L Potassium (3.5-5.1) mmol/L Chloride (98-107) mmol/L Carbon Dioxide (22-30) mmol/L Anion Gap mmol/L BUN (7-17) mg/dL Creatinine (0.52-1.04) mg/dL Est GFR (CKD-EPI)AfAm (>60 ml/min/1.73 sqM) Est GFR (CKD-EPI)NonAf (>60 ml/min/1.73 sqM) Glucose (74-99) mg/dL Calcium (8.4-10.2) mg/dL Total Bilirubin (0.2-1.3) mg/dL AST (14-36) U/L ALT (4-34) U/L Alkaline Phosphatase (38-126) U/L Troponin I 0.045 H* (0.000-0.034) ng/mL Total Protein (6.3-8.2) g/dL Albumin (3.5-5.0) g/dL Critical Care Time Critical Care Time: Yes Total Critical Care Time: 35 Disposition Clinical Impression: Fall, Acute intra-cranial hemorrhage, Subdural hematoma, Need for comfort care Disposition: ADMITTED IP TO THIS [facility] Condition: Poor Is patient prescribed a controlled substance at d/c from ED?: No Referrals: Jad Paulino DO [Primary Care Provider] - 1-2 days Time of Disposition: 17:00
[2021-04-06] MEDS ORDERED: LORazepam 2 MG/ML INJ IV STA (15:37)
[2021-04-06] MEDS ORDERED: METOCLOPRAMIDE 5 MG/ML 2 ML VIAL IVP PRN (16:59)
[2021-04-06] MEDS ORDERED: ONDANSETRON 4 MG/2 ML VIAL IVP PRN (16:59)
[2021-04-06] MEDS ORDERED: HYDROmorphone 1 MG/ML 1 ML SYRINGE IVP PRN ×2 (16:59)
[2021-04-07 00:48] VITALS: BP 145/81; PULSE 97; RESP 20; TEMP 97.7
--- NOTE | 2021-04-07 11:25 | P.HPIM ---
History of Present Illness H&P Date: 04/07/21 HISTORY OF PRESENT ILLNESS This is an 85-year-old female patient of Dr. Paulino with past medical history of paroxysmal atrial fibrillation on Coumadin, coronary artery disease with CABG 3 vessel in 2012 and cardiac stents, history of DVT and pulmonary emboli on lifelong anticoagulation, hyperlipidemia, hypothyroidism, obstructive sleep apnea, peripheral artery disease, headaches. Patient's family gives history that she had a fall when she was trying to get the feet up on a recliner chair in her home. She had no falling down her came in to help her and he also fell down trying to fix the recliner. He can home care was there and found the patient had dilated pupil and violent vomiting. Patient was brought into [facility] emergency center for evaluation. CAT scan of the brain and cervical spine revealed large mixed density subdural hematoma along the right lateral convexly measuring up to 1.8 cm thick. Mass affect on the right cerebral hemisphere, flattening of the right lateral ventricle and causing 1.5 cm leftward midline shift. There is some falcine herniation and right uncal herniation with compression onto the mid brain. Additional acute subdural hematoma thickens the midline falx, bilateral tentorium and the floor o f the right middle and right anterior cranial fossa. 2.0 cm focus of acute subarachnoid hemorrhage superior left frontoparietal junction. Cervical spine revealed no acute fracture or malalignment of the cervical spine. Mild to moderate spondylytic change. Suspect developing pulmonary edema. Initial blood pressure 174/80, pulse ox 90% on oxygen. EKG was a wide complex rhythm and left bundle branch at rate of 82, prolonged MA. WBC 16.3. Potassium 3.4, BUN 16 creatinine 1.15. Blood sugar 175. INR 4.6. AST 86 and ALT 40. Troponin 0.045. Based on the patient's clinical condition and imaging, family made the patient comfort care REVIEW OF SYSTEMS Unable to obtain due to mental status changes SOCIAL HISTORY She is a lifelong nonsmoker, no alcohol abuse, no marijuana or illicit drug use. Patient lives at home with her . FAMILY HISTORY Father at the age of 57yrs of CHF history of coronary artery disease. Mother at age 89 with history of colon cancer. Patient has a sister that from complications from open-heart surgery. Patient has one brother. She has one daughter with history of liver cancer. PHYSICAL EXAMINATION Gen: This is an 85-year-old female. She is resting in bed, multiple family members at her bedside. Mirza-Field respirations. HEENT: Head is atraumatic, normocephalic. Left pupil pinpoint and nonreactive. Sclerae is anicteric. NECK: Supple. No JVD. No lymphadenopathy. No thyromegaly. Nuchal rigidity. LUNGS: Bilateral scattered rhonchi No intercostal retractions. HEART: Regular rate and rhythm. No murmur. ABDOMEN: Soft. Bowel sounds are present. No masses. No tenderness. EXTREMITIES: No pedal edema. No calf tenderness. NEUROLOGICAL: Patient is unresponsive. ASSESSMENT AND PLAN 1. Profound subdural hematomas with midline shift and herniation. Patient has been made comfort care. 2. Paroxysmal atrial fibrillation on long-term Coumadin. 3. Hypercoagulopathy secondary to Coumadin. 4. Coronary artery disease with previous CABG and stents. 5. History of DVT and pulmonary emboli. 6. Hyperlipidemia. 7. Hypothyroidism. 8. Hypertension. 9. Obstructive sleep apnea. 10. Peripheral vascular disease. 11. Generalized anxiety disorder. 12. COVID-19 testing negative. Patient has been hospitalized during a pandemic. CODE STATUS: NO CODE Patient will be admitted to the hospital for a minimum of 2 night stay. Impression and plan of care have been directed as dictated by the signing physician. Kristine Goldstein nurse practitioner acting as scribe for signing physic agus. 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 History of Any Multi-Drug Resistant Organisms: None Reported Past Surgical History: Adenoidectomy, Breast Surgery, Cholecystectomy, Coronary Bypass/CABG, Heart Catheterization With Stent, Hernia Repair, Tonsillectomy Additional Past Surgical History / Comment(s): Cardiac caths with stent to proximal LAD in 2003 and stent to mid LAD 2010, 1/12/13 CABG-3 vessel, umbilical hernia repair, bilateral breast bx-R breast had chrystall removed, L caratid endartectomy, UVPPP, colonoscopy, hemorrhoidectomy, bilateral cataract removal with lens implants. Past Anesthesia/Blood Transfusion Reactions: No Reported Reaction Additional Past Anesthesia/Blood Transfusion Reaction / Comment(s): never recieved any blood in past. Date of Last Stent Placement:: 2010 Past Psychological History: Anxiety, Depression Additional Psychological History / Comment(s): Pt states she is no longer on medication for depression-"I took myself off and am doing fine." She states she lives with her spouse,is independant. no medical equipment or outside services.. Smoking Status: Unknown if ever smoked Past Alcohol Use History: None Reported Past Drug Use History: None Reported - Past Family History Father Family Medical History: Congestive Heart Failure (CHF), Coronary Artery Disease (CAD) Additional Family Medical History / Comment(s): Father at the age of 57yrs of CHF Mother Family Medical History: Cancer Additional Family Medical History / Comment(s): Mother had colon cancer. She lived to be 89 1/2yrs old. Brother(s) History Unknown: Yes Sister(s) Family Medical History: Cancer Additional Family Medical History / Comment(s): Patient states sister from complications after open heart Daughter(s) History Unknown: Yes Additional Family Medical History / Comment(s): liver cancer Medications and Allergies Home Medications Medication Instructions Recorded Confirmed Type atenoloL [Tenormin] 25 mg PO DAILY 01/10/16 10/08/19 History Warfarin Sodium 2.5 mg PO SUMOTUWETHFR@209911/16/17 10/08/19 History Warfarin [Coumadin] 5 mg PO SA@209906/04/18 10/08/19 History ALPRAZolam [Xanax] 0.5 mg PO TID PRN 11/07/18 10/08/19 History Atorvastatin [Lipitor] 80 mg PO HS 11/07/18 10/08/19 History Levothyroxine Sodium [Synthroid] 50 mcg PO DAILY 10/08/19 10/08/19 History Allergies Allergy/AdvReac Type Severity Reaction Status Date / Time No Known Allergies Allergy Verified 01/12/21 19:10 Physical Exam Vitals: Vital Signs Temp Pulse Pulse Resp BP BP Pulse Ox 04/06/21 21:15 97.7 F 97 20 145/81 98 04/06/21 19:53 95 14 155/83 98 04/06/21 16:29 94 18 170/80 92 L 04/06/21 15:23 90 18 176/90 90 L 04/06/21 14:54 87 18 187/88 92 L 04/06/21 14:44 84 18 182/90 91 L 04/06/21 14:25 81 18 184/95 93 L 04/06/21 14:02 71 16 174/80 90 L Intake and Output 04/06/21 04/07/21 04/07/21 22:59 06:59 14:59 Intake Total 0 0 Balance 0 0 Intake: Oral 0 0 Other: Voiding Method Diaper External Catheter # Voids 1 Weight 104.326 kg Results CBC & Chem 7: 04/06/21 14:41 04/06/21 14:41 Labs: Abnormal Lab Results - Last 24 Hours (Table) 04/06/21 04/06/21 04/06/21 Range/Units 14:41 14:41 14:41 WBC 16.3 H (3.8-10.6) k/uL MCHC 30.9 L (31.0-37.0) g/dL RDW 15.7 H (11.5-15.5) % Neutrophils # 12.5 H (1.3-7.7) k/uL PT 46.1 H (9.0-12.0) sec INR 4.6 H (<1.2) APTT 31.6 H (22.0-30.0) sec Potassium 3.4 L (3.5-5.1) mmol/L Creatinine 1.15 H (0.52-1.04) mg/dL Glucose 175 H (74-99) mg/dL Calcium 8.3 L (8.4-10.2) mg/dL AST 86 H (14-36) U/L ALT 40 H (4-34) U/L Troponin I (0.000-0.034) ng/mL 04/06/21 Range/Units 14:41 WBC (3.8-10.6) k/uL MCHC (31.0-37.0) g/dL RDW (11.5-15.5) % Neutrophils # (1.3-7.7) k/uL PT (9.0-12.0) sec INR (<1.2) APTT (22.0-30.0) sec Potassium (3.5-5.1) mmol/L Creatinine (0.52-1.04) mg/dL Glucose (74-99) mg/dL Calcium (8.4-10.2) mg/dL AST (14-36) U/L ALT (4-34) U/L Troponin I 0.045 H* (0.000-0.034) ng/mL
[2021-04-07] MEDS: LORazepam 2 MG/ML INJ IV PRN ×2 (12:45→21:42)
[2021-04-08] MEDS: LORazepam 2 MG/ML INJ IV PRN (03:59)
[2021-04-08] MEDS ORDERED: LORazepam 2 MG/ML INJ IV PRN (08:23)
--- NOTE | 2021-04-08 08:27 | P.DS ---
Providers Date of admission: 04/06/21 16:59 Expected date of discharge: 04/08/21 Attending physician: Richardson Feliz Primary care physician: Jad Paulino [facility] Course: HISTORY OF PRESENT ILLNESS This is an 85-year-old female patient of Dr. Paulino with past medical history of paroxysmal atrial fibrillation on Coumadin, coronary artery disease with CABG 3 vessel in 2013 and cardiac stents, history of DVT and pulmonary emboli on lifelong anticoagulation, hyperlipidemia, hypothyroidism, obstructive sleep apnea, peripheral artery disease, headaches. Patient's family gives history that she had a fall when she was trying to get the feet up on a recliner chair in her home. She had no falling down her came in to help her and he also fell down trying to fix the recliner. He can home care was there and found the patient had dilated pupil and violent vomiting. Patient was brought into [facility] emergency center for evaluation. CAT scan of the brain and cervical spine revealed large mixed density subdural hematoma along the right lateral convexly measuring up to 1.8 cm thick. Mass affect on the right cerebral hemisphere, flattening of the right lateral ventricle and causing 1.5 cm leftward midline shift. There is some falcine herniation and right uncal herniation with compression onto the mid brain. Additional acute subdural hematoma thickens the midline falx, bilateral tentorium and the floor of the right middle and right anterior cranial fossa. 2.0 cm focus of acute subarachnoid hemorrhage superior left frontoparietal junction. Cervical spine revealed no acute fracture or malalignment of the cervical spine. Mild to moderate spondylytic change. Suspect developing pulmonary edema. Initial blood pressure 174/80, pulse ox 90% on oxygen. EKG was a wide complex rhythm and left bundle branch at rate of 82, prolonged FL. WBC 16.3. Potassium 3.4, BUN 16 creatinine 1.15. Blood sugar 175. INR 4.6. AST 86 and ALT 40. Troponin 0.045. Based on the patient's clinical condition and imaging, family made the patient comfort care 04/08: Patient remains unresponsive. Family is planning on a meeting with hospice today and would like to take her home. Patient will be discharged home with hospice once arrangements are completed. DISCHARGE DIAGNOSES 1. Profound subdural hematomas with midline shift and herniation. 2. Paroxysmal atrial fibrillation on long-term Coumadin. 3. Hypercoagulopathy secondary to Coumadin. 4. Coronary artery disease with previous CABG and stents. 5. History of DVT and pulmonary emboli. 6. Hyperlipidemia. 7. Hypothyroidism. 8. Hypertension. 9. Obstructive sleep apnea. 10. Peripheral vascular disease. 11. Generalized anxiety disorder. 12. COVID-19 testing negative. Patient has been hospitalized during a pandemic. DISCHARGE PLAN Home with Hospice Greater than 35 minutes was utilized and coordinating patient's discharge. Impression and plan of care have been directed as dictated by the signing physician. Kristine Goldstein nurse practitioner acting as scribe for signing physician. Patient Condition at Discharge: Poor Plan - Discharge Summary New Discharge Prescriptions: Discontinued atenoloL [Tenormin] 25 mg PO DAILY Warfarin Sodium 2.5 mg PO SUMOTUWETHFR@2100 Warfarin [Coumadin] 5 mg PO SA@2100 ALPRAZolam [Xanax] 0.5 mg PO TID PRN PRN Reason: Anxiety Atorvastatin [Lipitor] 80 mg PO HS Levothyroxine Sodium [Synthroid] 50 mcg PO DAILY Follow up Appointment(s)/Referral(s): Jad Paulino DO [Primary Care Provider] - As Needed Discharge Disposition: HOME WITH HOSPICE
== END 2021-04-08 12:50 | disposition hospice, home (50) | DRG 82 ==
LOC: EC 13:56 → 5NMEDONC 16:59
PROVIDERS: ADMIT Internal Medicine Geriatric Medicine; ATTEND Internal Medicine Geriatric Medicine
DX: S06.5X9A Traumatic subdural hemorrhage with loss of consciousness of unspecified duration, initial encounter (principal); S06.A1XA Traumatic brain compression with herniation, initial encounter; D68.69 Other thrombophilia; Z51.5 Encounter for palliative care; R40.2313 Coma scale, best motor response, none, at hospital admission; R40.2123 Coma scale, eyes open, to pain, at hospital admission; R40.2223 Coma scale, best verbal response, incomprehensible words, at hospital admission; R40.2314 Coma scale, best motor response, none, 24 hours or more after hospital admission; R40.2114 Coma scale, eyes open, never, 24 hours or more after hospital admission; R40.2214 Coma scale, best verbal response, none, 24 hours or more after hospital admission; I48.0 Paroxysmal atrial fibrillation; I73.9 Peripheral vascular disease, unspecified; Z66 Do not resuscitate; Z20.822 Contact with and (suspected) exposure to COVID-19; I10 Essential (primary) hypertension; E03.9 Hypothyroidism, unspecified; I49.8 Other specified cardiac arrhythmias; T45.515A Adverse effect of anticoagulants, initial encounter; K21.9 Gastro-esophageal reflux disease without esophagitis; E78.5 Hyperlipidemia, unspecified; I44.7 Left bundle-branch block, unspecified; G47.33 Obstructive sleep apnea (adult) (pediatric); I25.10 Atherosclerotic heart disease of native coronary artery without angina pectoris; M17.0 Bilateral primary osteoarthritis of knee; F32.A Depression, unspecified; F41.1 Generalized anxiety disorder; Z79.890 Hormone replacement therapy; Z79.01 Long term (current) use of anticoagulants; Z79.899 Other long term (current) drug therapy; Z86.718 Personal history of other venous thrombosis and embolism; Z86.711 Personal history of pulmonary embolism; Z86.19 Personal history of other infectious and parasitic diseases; Z90.89 Acquired absence of other organs; Z90.49 Acquired absence of other specified parts of digestive tract; Z87.19 Personal history of other diseases of the digestive system; Z95.1 Presence of aortocoronary bypass graft; Z95.5 Presence of coronary angioplasty implant and graft; Z87.2 Personal history of diseases of the skin and subcutaneous tissue; Z95.828 Presence of other vascular implants and grafts; Z86.79 Personal history of other diseases of the circulatory system; Z96.1 Presence of intraocular lens; Z98.41 Cataract extraction status, right eye; Z98.42 Cataract extraction status, left eye; Z98.890 Other specified postprocedural states; W18.30XA Fall on same level, unspecified, initial encounter; Y92.008 Other place in unspecified non-institutional (private) residence as the place of occurrence of the external cause; Z82.49 Family history of ischemic heart disease and other diseases of the circulatory system; Z80.0 Family history of malignant neoplasm of digestive organs
CPT/HCPCS: 36415; 70450; 72125; 80053; 84484; 85025; 85610; 85730; 87635; 93005; 94760; 96365; 96367; 96375; 99291